=== PATIENT | female | born 1990 | race Caucasian/White ===

== ENCOUNTER 2022-06-29 09:41 | Emergency (ER) | payer OTHER, SELFPAY ==
[2022-06-29 10:43] LABS: Specific Gravity 1.028 (1.005-1.030)
[2022-06-29 10:48] LABS: Calcium Oxalate Crystals- Ur Few /HPF (None Seen); Specific Gravity 1.028 (1.005-1.030); Urine Bacteria Loaded /HPF (<20); Urine Bilirubin NEGATIVE (Negative); Urine Blood Negative (Negative); Urine Clarity Turbid (Clear); Urine Color Yellow (Yellow); Urine Glucose NEGATIVE (Negative); Urine Mucus 2+ /HPF (None Seen); Urine Protein TRACE (Negative); Urine RBC <5 /HPF (None Seen); Urine Urobilinogen Normal (Normal); Urine pH 6.5 (5.0-7.0)
[2022-06-29 11:45] LABS: Absolute Lymphocytes (CBC) 3.4 K/uL (0.7-4.9); Hematocrit 39.3 % (36.0-45.0); Lymphocytes % 22.1 % (15.3-44.8); MCV 88.5 fL (80-100); MPV 7.8 fL (7.6-11.3); RBC Red Blood Cell Count 4.44 M/uL (3.86-4.86)
--- NOTE | 2022-06-29 11:55 | RAD REPORT ---
EXAM DESCRIPTION: US - Transvaginal OB - 06/29/2022 11:43 am CLINICAL HISTORY: with pelvic pain COMPARISON: None. FINDINGS: The uterus measures 8 x 4 x 5 centimeters. 3 millimeter sac is present within the endomet rium. Yolk sac is not seen. No pole noted Neither ovary seen secondary to overlying bowel gas The right and left adnexa unremarkable No significant free fluid IMPRESSION: 3 millimeter sac within the endometrium These findings could represent an early intrauterine in which the yolk sac/ pole not seen. Incomplete and even an ectopic with a pseudo gestational sac can also result in th is appearance. This all should be correlated clinically and with serial beta HCG levels. Followup end ovaginal sonogram in 1 week recommended
[2022-06-29 12:13] LABS: Albumin 3.4 g/dL (3.4-5.0); Bilirubin Total 0.2 mg/dL (0.2-1.0); Protein, Total 6.6 g/dL (6.4-8.2)
--- NOTE | 2022-06-29 12:46 | EDPHYS ---
Physician Documentation [facility] Name: Sol Kemp Age: 32 yrs Sex: Female : 1990 Arrival Date: 06/29/2022 Time: 09:41 Bed 4 Private MD: ED Physician Brock Haas HPI: 06/29 12:10 This 32 yrs old Female presents to ER via Ambulatory with complaints of , kb Abdominal Pain. 12:10 The patient presents to the emergency department with abdominal pain, of the abdomen kb diffusely, that started today. course: care: none. Previous pregnancies: the patient has never been . Associated signs and symptoms: Pertinent positives: abdominal pain, Pertinent negatives: vaginal bleeding, vaginal discharge. The patient has not experienced similar symptoms in the past. The patient has not recently seen a physician. Pt reports she found out she was 4 days ago and has been having abd pain. States she isn't sure if it's normal so she came to get checked. . 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 Flu vaccine is not up to date. - Social history:: Smoking status: Patient reports the use of cigarette tobacco products, smokes one pack cigarettes per day. ROS: 12:09 Constitutional: Negative for fever, chills, and weight loss. kb 12:09 Abdomen/GI: Positive for abdominal pain, Negative for nausea, vomiting, and diarrhea. 12:09 All other systems are negative. Exam: 12:09 Constitutional: This is a well developed, well nourished patient who is awake, alert, kb and in no acute distress. Head/Face: Normocephalic, atraumatic. ENT: Moist Mucous membranes Cardiovascular: Regular rate and rhythm with a normal S1 and S2. No gallops, murmurs, or rubs. No pulse deficits. Respiratory: Respirations even and unlabored. No increased work of breathing. Talking in full sentences Skin: Warm, dry with normal turgor. Normal color. MS/ Extremity: Pulses equal, no cyanosis. Neurovascular intact. Full, normal range of motion. Neuro: Awake and alert, GCS 15, oriented to person, place, time, and situation. Moves all extremities. Normal gait. 12:09 Abdomen/GI: Inspection: abdomen appears normal, Bowel sounds: normal, Palpation: soft, in all quadrants, mild abdominal tenderness, in all quadrants. Vital Signs: 09:50 BP 124 / 72; Pulse 106; Resp 18 S; Temp 97.8; Pulse Ox 100% on R/A; Weight 70.31 kg kc6 (R); Height 5 ft. 0 in. (R); Pain 4/10; 12:03 BP 126 / 71; Pulse 87; Resp 18; Pulse Ox 98% on R/A; ph 09:50 Body Mass Index 30.27 (70.31 kg, 152.4 cm) [facility] 09:50 Pain Scale: Adult 6 MDM: 09:46 Patient medically screened. kb 12:09 Data reviewed: vital signs, nurses notes. kb 12:12 Differential diagnosis: threatened Ab, ectopic , GERD, pancreatitis. kb 06/29 09:52 Order name: Abo/rh Typing; Complete Time: 12:00 kb 06/29 09:52 Order name: CBC with Diff; Complete Time: 12:00 kb 06/29 09:52 Order name: Test, Urine; Complete Time: 10:55 kb 06/29 09:52 Order name: Quantitative Hcg; Complete Time: 12:19 kb 06/29 09:52 Order name: Urinalysis w/ reflexes; Complete Time: 10:55 kb 06/29 09:52 Order name: CMP; Complete Time: 12:19 kb 06/29 09:52 Order name: Lipase; Complete Time: 12:19 kb 06/29 11:58 Order name: ABO/RH no charge; Complete Time: 12:00 EDMS 06/29 10:55 Order name: US Transvaginal Ob; Complete Time: 12:00 kb 06/29 09:52 Order name: IV Saline Lock; Complete Time: 10:33 kb 06/29 09:52 Order name: Labs collected and sent; Complete Time: 10:33 kb 06/29 09:52 Order name: NPO; Complete Time: 10:09 kb Administered Medications: 13:08 Drug: Macrobid PO 100 mg Route: PO; ph 13:08 Follow up: Response: No adverse reaction ph Disposition: 14:19 Co-signature as Attending Physician, Brock Haas MD I reviewed the patient's care rt provided by the Advanced Practice Provider and agree with the diagnosis and treatment plan. Disposition Summary: 06/29/22 12:45 Discharge Ordered Location: Home kb Condition: Stable kb Diagnosis - UTI/ Urinary tract infection, site not specified kb - Abdominal pain, Generalized kb Followup: kb - With: Emergency Department - When: As needed - Reason: Worsening of condition Followup: kb - With: Private Physician - When: 2 - 3 days - Reason: Recheck today's complaints, Continuance of care, Re-evaluation by your physician Discharge Instructions: - Discharge Summary Sheet kb - Abdominal Pain During , Ovie-jz-Oroh kb - and Urinary Tract Infection kb Forms: - Medication Reconciliation Form kb - Thank You Letter kb - Antibiotic Education kb - Prescription Opioid Use kb Prescriptions: - Macrobid 100 mg Oral Capsule - take 1 capsule by ORAL route every 12 hours for 10 days; 20 capsule; Refills: kb 0, Product Selection Permitted Signatures: Dispatcher [employer] EDBatsheva Moore, JIGGER ARTISAN-C JIGGER ARTISAN-Dee Altamirano RN RN ph Josette Solo RN RN kc6 Brock Haas MD MD rt Corrections: (The following items were deleted from the chart) 09:53 09:52 Allergies: No Known Allergies; kc6 kc6
--- NOTE | 2022-06-29 12:46 | ER ---
Nurse's Notes [facility] Name: Sol Kemp Age: 32 yrs Sex: Female : 1990 Arrival Date: 06/29/2022 Time: 09:41 Bed 4 Private MD: Diagnosis: UTI/ Urinary tract infection, site not specified;Abdominal pain, Generalized Presentation: 06/29 09:50 Chief complaint: Patient states: she found she was with her first kc6 about 4 days ago and began having abdominal pain this morning. Coronavirus screen: At this time, the client does not indicate any symptoms associated with coronavirus-19. Ebola Screen: No symptoms or risks identified at this time. Initial Sepsis Screen: Does the patient meet any 2 criteria? No. Patient's initial sepsis screen is negative. Does the patient have a suspected source of infection? No. Patient's initial sepsis screen is negative. Risk Assessment: Do you want to hurt yourself or someone else? Patient reports no desire to harm self or others. Onset of symptoms was June 29, 2022. 09:50 Method Of Arrival: Ambulatory [facility] 09:50 Acuity: NICOLA 3 kc6 Triage Assessment: 09:52 General: Appears in no apparent distress. uncomfortable, Behavior is calm, cooperative, kc6 appropriate for age. Pain: Complains of pain in right upper quadrant, right lower quadrant and left lower quadrant. GI: Abdomen is flat, non-distended, Patient currently denies diarrhea, nausea, vomiting. 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 Flu vaccine is not up to date. - Social history:: Smoking status: Patient reports the use of cigarette tobacco products, smokes one pack cigarettes per day. Screenin:52 [facility] ED Fall Risk Assessment (Adult) History of falling in the last 3 months, bp including since admission No falls in past 3 months (0 pts). Abuse screen: Denies threats or abuse. Denies injuries from another. Nutritional screening: No deficits noted. Tuberculosis screening: No symptoms or risk factors identified. Assessment: 09:52 General: SEE TRIAGE NOTE. bp 11:01 Reassessment: Patient appears in no apparent distress at this time. Patient and/or ph family updated on plan of care and expected duration. Pain level reassessed. Patient is alert, oriented x 3, equal unlabored respirations, skin warm/dry/pink. Vital Signs: 09:50 BP 124 / 72; Pulse 106; Resp 18 S; Temp 97.8; Pulse Ox 100% on R/A; Weight 70.31 kg kc6 (R); Height 5 ft. 0 in. (R); Pain 4/10; 12:03 BP 126 / 71; Pulse 87; Resp 18; Pulse Ox 98% on R/A; ph 09:50 Body Mass Index 30.27 (70.31 kg, 152.4 cm) [facility] 09:50 Pain Scale: Adult [facility] ED Course: 09:44 Patient arrived in ED. mr 09:46 Batsheva Michelle FNP-C is [facility]. kb 09:46 Brock Haas MD is Attending Physician. kb 09:52 Triage completed. kc 09:52 Arm band placed on. [facility] 09:52 Patient has correct armband on for positive identification. Bed in low position. Call bp light in reach. Side rails up X2. 09:59 Dee Tinoco, RN is Primary Nurse. ph 10:33 Inserted saline lock: 22 gauge in right forearm, using aseptic technique. Blood bp collected. 11:44 US Transvaginal Ob In Process Unspecified. EDMS 12:04 No provider procedures requiring assistance completed. ph 13:08 IV discontinued, intact, bleeding controlled, No redness/swelling at site. Pressure ph dressing applied. Administered Medications: 13:08 Drug: Macrobid PO 100 mg Route: PO; ph 13:08 Follow up: Response: No adverse reaction ph Medication: 09:52 VIS not applicable for this client. bp Outcome: 12:45 Discharge ordered by . kb 13:08 Discharged to home ambulatory. ph 13:08 Condition: good 13:08 Discharge instructions given to family, Instructed on discharge instructions, follow up and referral plans. medication usage, Demonstrated understanding of instructions, follow-up care, medications, Prescriptions given X 1. 13:08 Patient left the ED. ph Signatures: Dispatcher [employer] EDMS Batsheva Michelle ASSEMBLER WIRE MESH GATE-C ASSEMBLER WIRE MESH GATE-Ckb Gale Merritt Dee Tinoco, RN RN Lionel Ragland RN RN Josette Hancock RN RN kc6 Corrections: (The following items were deleted from the chart) 09:53 09:52 Allergies: No Known Allergies; kc6 kc6 09:55 09:50 Chief complaint: Patient states: she found she was with her first kc6 about 4days and began having abdominal pain this morning. kc6
[2022-06-29] MEDS ORDERED: NITROFURAN MACRO 100 MG CAP PO ONE (12:59)
[2022-06-29 13:40] VITALS: TEMP 97.8
[2022-06-29 13:42] VITALS: BP 126/71; O2SAT 98
== END 2022-06-29 13:08 | disposition home or self-care (01) ==
LOC: ER 09:41
DX: O23.41 Unspecified infection of urinary tract in pregnancy, first trimester (principal); N39.0 Urinary tract infection, site not specified; O99.331 Smoking (tobacco) complicating pregnancy, first trimester; F17.210 Nicotine dependence, cigarettes, uncomplicated; Z3A.00 Weeks of gestation of pregnancy not specified
CPT/HCPCS: 36415; 76817; 80053; 81001; 81025; 83690; 84702; 85025; 86900; 86901; 99284

== ENCOUNTER 2022-09-08 18:22 | Emergency (ER) | payer OTHER ==
--- NOTE | 2022-09-08 22:08 | RAD REPORT ---
EXAM DESCRIPTION: US - OB Limited - 09/08/2022 9:21 pm CLINICAL HISTORY: status post fall COMPARISON: June 2022 FINDINGS: Limited OB ultrasound performed Single live intrauterine in transverse presentation. Cervix was not well visualized. It measures 3.8 centimeters. Placenta lies 1.8 centimeters from the cervix. The placenta is anterior. No subchorionic/retroplacental bleed noted. Cardiac activity 158 beats per minute. Femur length 1.5 centimeters 14 weeks 3 days Several small sonolucent areas within the placenta probably venous lakes. The right and left adnexae are unremarkable. IMPRESSION: Single live anterior with an estimated gestational age 14 weeks 3 days. JOSE LUIS 03/06/2023 Low lying placenta If a survey is desired it should be performed in approximately 4 weeks
--- NOTE | 2022-09-08 22:26 | EDPHYS ---
Physician Documentation [facility] Name: Sol Kemp Age: 32 yrs Sex: Female : 1990 Arrival Date: 09/08/2022 Time: 18:22 Bed 19 Private MD: ED Physician Brock Haas HPI: 09/09 00:57 This 32 yrs old Female presents to ER via Ambulatory with complaints of Abdominal Pain, rt 15 Weeks . 00:57 Patient is reportedly 15 weeks presents to the ED after falling, landing on rt her buttocks. She states that she does not have any significant pain to her buttocks but did develop pain to her lower abdomen, aching nature, nonradiating. Denies bleeding, leakage of fluid. Denies other acute complaints this time, symptoms are moderate severity, no other aggravating or elevating factors.. Historical: - Allergies: 09/08 18:55 No Known Allergies; hb - Home Meds: 18:55 None [Active]; hb - PMHx: 18:55 adhd; PCOS; hb - PSHx: 18:55 ankle surgery; hb - Immunization history:: Adult Immunizations up to date. - Social history:: Smoking status: Patient reports the use of cigarette tobacco products, smokes one-half pack cigarettes per day. - Family history:: not pertinent. ROS: 09/09 00:57 Constitutional: Negative for fever, chills, and weight loss, Cardiovascular: Negative rt for chest pain, palpitations, and edema, Respiratory: Negative for shortness of breath, cough, wheezing, and pleuritic chest pain, MS/Extremity: Negative for injury and deformity, Skin: Negative for injury, rash, and discoloration, Neuro: Negative for headache, weakness, numbness, tingling, and seizure, Psych: Negative for depression, anxiety, suicide ideation, homicidal ideation, and hallucinations. Abdomen/GI: Positive for abdominal pain, Negative for nausea and vomiting. Exam: 00:57 Constitutional: This is a well developed, well nourished patient who is awake, alert, rt and in no acute distress. Head/Face: Normocephalic, atraumatic. Chest/axilla: Normal chest wall appearance and motion. Nontender with no deformity. No lesions are appreciated. Cardiovascular: Regular rate and rhythm with a normal S1 and S2. No gallops, murmurs, or rubs. Normal PMI, no JVD. No pulse deficits. Respiratory: Lungs have equal breath sounds bilaterally, clear to auscultation and percussion. No rales, rhonchi or wheezes noted. No increased work of breathing, no retractions or nasal flaring. Skin: Warm, dry with normal turgor. Normal color with no rashes, no lesions, and no evidence of cellulitis. MS/ Extremity: Pulses equal, no cyanosis. Neurovascular intact. Full, normal range of motion. Neuro: Awake and alert, GCS 15, oriented to person, place, time, and situation. Cranial nerves II-XII grossly intact. Motor strength 5/5 in all extremities. Sensory grossly intact. Cerebellar exam normal. Normal gait. 00:57 Abdomen/GI: Minimal suprapubic tenderness, no rebound, guarding, distention. Vital Signs: 09/08 18:53 BP 132 / 80; Pulse 99; Resp 16; Temp 97.7(TE); Pulse Ox 100% on R/A; Weight 75.3 kg; hb Height 5 ft. 0 in. ; Pain 6/10; 18:53 Body Mass Index 32.42 (75.30 kg, 152.4 cm) hb 18:53 Pain Scale: Adult hb MDM: 19:02 Patient medically screened. [facility] 09/09 00:57 Differential diagnosis: Plan trauma, placental abruption, demise. Data reviewed: rt vital signs, nurses notes, radiologic studies. Test considered but Not performed: Labs: Stable vital signs, pain due to trauma, labs and urinalysis not indicated. ED course: Patient left the emergency department without informing staff prior to return of radiology results.. 09/08 20:39 Order name: US OB Limited; Complete Time: 22:09 rt Administered Medications: No medications were administered Disposition Summary: 09/08/22 22:26 Discharge Ordered Location: Home rt Problem: new rt Symptoms: are unchanged rt Condition: Stable rt Diagnosis - Abdominal pain s/p fall rt Followup: rt - With: Private Physician - When: 2 - 3 days - Reason: Forms: - Medication Reconciliation Form rt - Thank You Letter rt - Antibiotic Education rt - Prescription Opioid Use rt - Patient Portal Instructions rt Signatures: Dispatcher [employer] EDAR George Lam MD MD cha Baxter, Heather, PATRICIO RN Brock Rodriguez MD MD rt
--- NOTE | 2022-09-08 22:26 | ER ---
Nurse's Notes [facility] Name: Sol Kemp Age: 32 yrs Sex: Female : 1990 Arrival Date: 09/08/2022 Time: 18:22 Bed 19 Private MD: Diagnosis: Abdominal pain s/p fall Presentation: 09/08 18:53 Chief complaint: Lower abdominal pain after mechanical fall from standing onto grass 2 hb hours ago. Pt reports she is approx 15 weeks , , JOSE LUIS 03/01/23. Denies vaginal bleeding. Coronavirus screen: At this time, the client does not indicate any symptoms associated with coronavirus-19. Ebola Screen: No symptoms or risks identified at this time. Initial Sepsis Screen: Does the patient meet any 2 criteria? No. Patient's initial sepsis screen is negative. Does the patient have a suspected source of infection? No. Patient's initial sepsis screen is negative. Risk Assessment: Do you want to hurt yourself or someone else? Patient reports no desire to harm self or others. Onset of symptoms was September 08, 2022. 18:53 Method Of Arrival: Ambulatory hb 18:53 Acuity: NICOLA 3 hb Historical: - Allergies: 18:55 No Known Allergies; hb - Home Meds: 18:55 None [Active]; hb - PMHx: 18:55 adhd; PCOS; hb - PSHx: 18:55 ankle surgery; hb - Immunization history:: Adult Immunizations up to date. - Social history:: Smoking status: Patient reports the use of cigarette tobacco products, smokes one-half pack cigarettes per day. - Family history:: not pertinent. Screenin:58 [facility] ED Fall Risk Assessment (Adult) History of falling in the last 3 months, cm10 including since admission Yes- single mechanical fall (1 pt) Confusion or Disorientation No (0 pts) Intoxicated or Sedated Impaired Gait No (0 pts) Mobility Assist Device Used No (0 pt) Altered Elimination No (0 pt) Score/Fall Risk Level 0 - 2 = Low Risk Oriented to surroundings, Maintained a safe environment, Hourly rounding (assess needs \T\ fall precautionary measures) done. Abuse screen: Denies threats or abuse. Denies injuries from another. Nutritional screening: No deficits noted. Tuberculosis screening: No symptoms or risk factors identified. Assessment: 21:58 Reassessment: Assumed care of patient at this time. pt currently in US. cm10 22:36 Reassessment: Pt no longer in room at this time. Per provider, pt was not in room when cm10 he went to discuss results. Vital Signs: 18:53 BP 132 / 80; Pulse 99; Resp 16; Temp 97.7(TE); Pulse Ox 100% on R/A; Weight 75.3 kg; hb Height 5 ft. 0 in. ; Pain 6/10; 18:53 Body Mass Index 32.42 (75.30 kg, 152.4 cm) hb 18:53 Pain Scale: Adult hb ED Course: 18:24 Patient arrived in ED. rg4 18:39 George Anderson PA is PHCP. cp 18:39 George Lam MD is Attending Physician. cp 18:55 Triage completed. hb 18:55 Arm band placed on. hb 20:00 Brock Haas MD is Attending Physician. rt 21:23 US OB Limited In Process Unspecified. EDMS Administered Medications: No medications were administered Medication: 21:58 VIS not applicable for this client. cm10 Outcome: 22:26 Discharge ordered by . rt 22:37 Discharged to home Pt not in room at the time of D/C. cm10 22:37 Patient left the ED. cm10 Signatures: Dispatcher [employer] EDMS George Anderson PA PA cp Baxter, Heather, RN RN hb Ramona Peter rg4 Brock Haas MD MD rt Lisa Santiago RN RN cm10
[2022-09-08 22:45] VITALS: BP 132/80; TEMP 97.7; O2SAT 100
== END 2022-09-08 22:37 | disposition home or self-care (01) ==
LOC: ER 18:22
DX: O26.892 Other specified pregnancy related conditions, second trimester (principal); O99.330 Smoking (tobacco) complicating pregnancy, unspecified trimester; F17.210 Nicotine dependence, cigarettes, uncomplicated; Z3A.15 15 weeks gestation of pregnancy
CPT/HCPCS: 76815; 99281

== ENCOUNTER 2022-11-17 08:13 | Emergency (ER) | payer SELFPAY ==
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
--- NOTE | 2022-11-17 10:11 | ER ---
Nurse's Notes [facility] Name: Sol Kemp Age: 32 yrs Sex: Female : 1990 Arrival Date: 11/17/2022 Time: 08:13 Bed Waiting Private MD: Diagnosis: Necrotic wound of the left inner thigh.;Cellulitis of left lower limb Presentation: 11/17 08:20 Note Per ERP, pt assessed in the lobby and declined treatment reporting she will return [facility] to hospital where she was originally treated. 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 ED Course: 08:15 Patient arrived in ED. rg4 08:15 Anisa White FNP is [facility]. 7 08:15 Brock Haas MD is Attending Physician. [facility] 09:50 Anisa White FNP is [facility]. [facility] 09:50 Brock Haas MD is Attending Physician. [facility] Administered Medications: No medications were administered Outcome: 10:11 Patient [address] the ED[address] [facility] Signatures: Ramona Peter 4 Yeni Wallis RN RN [facility] Anisa White FNP [place] [id number]
== END 2022-11-17 10:11 | disposition left against medical advice (07) ==
LOC: ER 08:13
DX: O26.892 Other specified pregnancy related conditions, second trimester (principal); L03.116 Cellulitis of left lower limb

== ENCOUNTER → 2023-03-06 | Emergency (ER) | payer OTHER, SELFPAY ==
--- OUTSIDE RECORDS SUMMARY | 2023-03-06 19:15 | XMS REPORT | Continuity of Care Document ---
Author Name Unknown Address [address] [facility] [address]. [address] [place] [address] [facility] thconnect Address [address] [facility]. [address] [place] [address] Care Team Providers Care Television Receiver Analyzer Name Role Phone None, None Primary Care Physician [phone] MANSOOR MAURER Attending Clinician Un available Mansoor Maurer Attending Clinician BALA ROBERTSON Attending Clinician Unava ilable Bala Robertson Attending Clinician Pam Goode Attending Clinician [phone] PAM GOODE Attending Clinician Hitesh Milner MD Attending Clinician [phone] Magnolia Chow Attending Clinician [phone] MAGNOLIA CHOW Attending Clinician Unavail Davis Diaz Attending Clinician DAVIS DOUGHERTY Attending Clinician Unavailable MILENA CASTANON Attending Clinician UnavailDianne Mclean Attending Clinician DIANNE COTTER Attending Clinician Unajuan Baez Attending Clinician Unavailable JaimeEstefany Attending Clinician Unavailable [email or web address] Attending Clinician Unavail able WILFRIDO HO Attending Clinician Wilfrido Wright MD Attending Clinician [phone] Tyrone Vazquez DO Attending Clinician Doctor Unassigned, Offerle Attending Clinician U SULTANA Morataya Attending Clinician Unavailable MANSOOR MAURER Admitting Clinician Un available Mansoor Maurer Admitting Clinician BALA ROBERTSON Admitting Clinician Unava ilBala Lopez Admitting Clinician Magnolia Chow Admitting Clinician [phone] MAGNOLIA CHOW Admitting Clinician Unavail able MILENA CASTANON Admitting Clinician UnavailRyan Meza Admitting Clinician [phone] RYAN VAZQUEZ Admitting Clinician Unavailsofya Baez Admitting Clinician Unavailable Physician, No Primary or Family Admitting Clinic cherie Unavailable FELICIA_Holly Admitting Clinician Unavail able Payers Payer Name Policy Type Policy Number Effective Date Expirati on Date Source [facility] CHOICE/CHOICE PLUS [id number] 2022 00:00:00 2022 00:00:00 [facility] (HMO) [id number] [facility] (MEDICAID HMO) [id number] 2015 00:00:00 [facility] [id number] [facility] COMMUNITY PLAN (MEDICAID REPLACEMENT - HMO) [id number] 2022 00:00:00 [employer] [id number] 2020 00:00:00 [employer] [place] [employer] [place] [id number] 2019 00:00:00 Problems Condition Name Condition Details Condition Category Status Onset Date Resolution Date Last Treatment Date Treating Clinician Comments Source BLOOD PRESSURE BLOOD PRESSURE Active 02/19/2023 [facility] Diagnosis Active 1-08 00:00: 00 2023-02-19 22:57:00 Liseth Reyes HYPERTENSI ON IN , SEVERE PREECL HYPERTENSI ON IN , SEVERE PREECL Active 02/19/2023 [facility] Diagnosis Active 1-08 00:00: 00 2023-02-21 07:28:00 Liseth Reyes WOUND WOUND Active 12/11/2022 [facility] Diagnosis Active 2022-02 0-30 00:00: 00 2022-12-12 13:53:00 Liseth Reyes Patient currently (finding) Patient currently (finding) Active 11/18/2022 Problem 02/22/2023 [facility] Problem Active 2022-02 0-07 00:00: 00 2023-02-22 07:24:03 Liseth Reyes LEG WOUND LEG WOUND Active 11/18/2022 [facility] Diagnosis Active 2022-02 0-07 00:00: 00 2022-11-18 08:20:00 Liseth Reyes CELLULITIS OF LEG, , OBSTERICAL CELLULITIS OF LEG, , OBSTERICAL Active 11/18/2022 [facility] Diagnosis Active 2022-02 0-07 00:00: 00 2022-12-14 07:17:00 Liseth Reyes OPEN WOUND INFECTION OPEN WOUND INFECTION Active 11/17/2022 [facility] Diagnosis Active 2022-02 0-06 00:00: 00 2022-12-14 07:17:00 Liseth Reyes AUTO/PED AUTO/PED Active 10/06/2022 [facility] Diagnosis Active 8- 00:00: 00 2022-10-11 13:45:00 Liseth ZURITA BILLING Active 10/06/2022 [facility] Diagnosis Active 8- 00:00: 00 2022-10-11 13:57:00 Liseth Reyes Benign essential hypertensi on complicati ng , childbirth and the puerperium - not delivered Benign Essential Hypertensi on Complicati ng , Childbirth and the Puerperium - Not Delivered Problem Active 08-04 00:00: 00 [facility] Problem Active 08-04 00:00: 00 [facility] Maternal tobacco use Maternal Tobacco Use Problem Active 08-04 00:00: 00 [facility] Morbid obesity with body mass index of 40.0-49.9 Morbid obesity with body mass index of 40.0-49.9 Disease Active 08 00:00: 00 [facility] Pilonidal cyst Pilonidal cyst Disease Active 04-30 00:00: 00 Overview: Formattin g of this note might be different from the original. Added automatic ally from request for surgery [id number] [facility] Attention deficit disorder of adult Attention deficit disorder of adult Disease Active 04-01 00:00: 00 [facility] Tobacco use disorder Tobacco use disorder Disease Active 10-03 00:00: 00 [facility] PCOS (polycysti c ovarian syndrome) PCOS (polycysti c ovarian syndrome) Disease Active 10-03 00:00: 00 [facility] PCOS (polycysti c ovarian syndrome) PCOS (polycysti c ovarian syndrome) Disease Active 10-03 00:00: 00 [facility] Oligomenor monet Oligomenor monet Disease Active 08-29 00:00: 00 [facility] J20.8 - ACUTE BRONCHITIS DUE TO OTHER J20.8 - ACUTE BRONCHITIS DUE TO OTHER Active 07/27/2015 [facility] Diagnosis Active 07-26 00:01: 00 2015-07-27 16:01:00 Liseth Reyes 078.11 / CPT 43686 078.11 / CPT 57332 Active 12/08/2010 [facility] Active 2010-02 00:00: 00 2010-12-12 11:18:00 Liseth Reyes Attention deficit hyperactiv ity disorder (disorder) Attention deficit hyperactiv ity disorder (disorder) Active Problem 10/09/2022 [facility] Problem Active 2022-10-09 15:40:48 Liseth Reyes Benign essential hypertensi on (disorder) Benign essential hypertensi on (disorder) Active Problem 02/22/2023 [facility] Problem Active 2023-02-22 07:24:03 Liseth Reyes Major depressive disorder (disorder) Major depressive disorder (disorder) Active Problem 02/22/2023 [facility] Problem Active 2023-02-22 07:24:03 Liseth Reyes SEPSIS, UNSPECIFIE D ORGANISM SEPSIS, UNSPECIFIE D ORGANISM Active [facility] Diagnosis Active 2022-10-11 13:45:00 Liseth Reyes CELLULITIS OF UNSPECIFIE D PART OF LIMB CELLULITIS OF UNSPECIFIE D PART OF LIMB Active [facility] Diagnosis Active 2022-12-14 07:17:00 Liseth Reyes ENCNTR FOR SUPRVSN OF NORMAL , ENCNTR FOR SUPRVSN OF NORMAL , Active [facility] Diagnosis Active 2022-12-14 07:17:00 Liseth Reyes SEVERE PRE-ECLAMP PIETER, UNSPECIFIE D TRIMES SEVERE PRE-ECLAMP PIETER, UNSPECIFIE D TRIMES Active [facility] Diagnosis Active 2023-02-21 07:28:00 Liseth Reyes Allergies, Adverse Reactions, Alerts Allergy Name Allergy Type Status Severity Reaction(s) Onset Date Inactive Date Treating Clinician Comments Source Meperidi ne Propensi ty to adverse reaction s Active 2022-02 00:00: 00 [facility] No Known Allergie s DA Active U 08-14 00:00: 00 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) Liseth Reyes Social History Social Habit Start Date Stop Date Quantity Comments Source Sexual orientation [facility] History of tobacco use Cigarette Smoker [facility] History SDOH Alcohol Frequency [facility] History SDOH Alcohol Std Drinks [facility] History SDOH Alcohol Binge [facility] Tobacco use and exposure 2022-12-07 00:00:00 2022-12-07 00:00:00 Smokeless tobacco non-user [facility] Alcohol intake 2022-12-07 00:00:00 2022-12-07 00:00:00 Ex-drinker (finding) [facility] Cigarettes smoked current (pack per day) - Reported 2018-07-30 00:00:00 2018-07-30 00:00:00 [facility] Cigarette pack-years 2018-07-30 00:00:00 2018-07-30 00:00:00 [facility] Alcohol Comment 2015-08-30 00:00:00 2015-08-30 00:00:00 1-2 week [facility] Sex Assigned At 1990 00:00:00 1990 00:00:00 [facility] Smoking Status Start Date Stop Date Source Heavy Tobacco Smoker [facility] Social History 2015-07-26 20:44:48 Cinda Yu Medications Ordered Medication Name Filled Medication Name Start Date Stop Date Current Medication? Ordering Clinician Indication Dosage Frequency Signature (SIG) Comments Components Source Augmentin 875 mg oral tablet 2022-02 21:27: 00 Yes 875 mg = 1 tab, PO, Q12H, X 14 day, # 28 tab, 0 Refill(s), Pharmacy: [facility] [place], 162.56, cm, 11/23/22 13:35:00 CDT, Height, 81.9, kg, 11/23/22 13:35:00 CDT, Weight Memlillian taylor Eric Augmentin 875 mg oral tablet 2022-02 21:27: 00 Yes 875 mg = 1 tab, PO, Q12H, X 14 day, # 28 tab, 0 Refill(s), Pharmacy: [facility] [place], 162.56, cm, 11/23/22 13:35:00 CDT, Height, 81.9, kg, 11/23/22 13:35:00 CDT, Weight Memoria claudia Eric Augmentin 875 mg oral tablet 2022-02 21:27: 00 Yes 875 mg = 1 tab, PO, Q12H, X 14 day, # 28 tab, 0 Refill(s), Pharmacy: [facility] [place], 162.56, cm, 11/23/22 13:35:00 CDT, Height, 81.9, kg, 11/23/22 13:35:00 CDT, Weight Memoria claudia Reyes Augmentin 875 mg oral tablet 2022-02 21:27: 00 Yes 875 mg = 1 tab, PO, Q12H, X 14 day, # 28 tab, 0 Refill(s), Pharmacy: [facility], 162.56, cm, 11/23/22 13:35:00 CDT, Height, 81.9, kg, 11/23/22 13:35:00 CDT, Weight Memoria claudia FinnEric [place] 5/325 oral tablet 2022-02 21:01: 00 Yes 1 tab, PO, Q6H, PRN Pain Score 1-3, X 7 day, # 30 tab, 0 Refill(s), Pharmacy: [facility], 162.56, cm, 11/23/22 13:35:00 CDT, Height, 81.9, kg, 11/23/22 13:35:00 CDT, Weight Memoria claudia FinnEric Zofran 4 mg oral tablet 2022-02 21:01: 00 Yes 4 mg = 1 tab, PO, Q6H, PRN Nausea/Vom iting, X 8 day, # 30 tab, 0 Refill(s), Pharmacy: [facility], 162.56, cm, 11/23/22 13:35:00 CDT, Height, 81.9, kg, 11/23/22 13:35:00 CDT, Weight Memoria claudia Eric [place] 5/325 oral tablet 2022-02 21:01: 00 Yes 1 tab, PO, Q6H, PRN Pain Score 1-3, X 7 day, # 30 tab, 0 Refill(s), Pharmacy: [facility], 162.56, cm, 11/23/22 13:35:00 CDT, Height, 81.9, kg, 11/23/22 13:35:00 CDT, Weight Memoria l [place] Zofran 4 mg oral tablet 2022-02 21:01: 00 Yes 4 mg = 1 tab, PO, Q6H, PRN Nausea/Vom iting, X 8 day, # 30 tab, 0 Refill(s), Pharmacy: [facility], 162.56, cm, 11/23/22 13:35:00 CDT, Height, 81.9, kg, 11/23/22 13:35:00 CDT, Weight Memoria claudia Reyes [place] 5/325 oral tablet 2022-02 21:01: 00 Yes 1 tab, PO, Q6H, PRN Pain Score 1-3, X 7 day, # 30 tab, 0 Refill(s), Pharmacy: [facility], 162.56, cm, 11/23/22 13:35:00 CDT, Height, 81.9, kg, 11/23/22 13:35:00 CDT, Weight Memoria l Eric Zofran 4 mg oral tablet 2022-02 21:01: 00 Yes 4 mg = 1 tab, PO, Q6H, PRN Nausea/Vom iting, X 8 day, # 30 tab, 0 Refill(s), Pharmacy: [facility], 162.56, cm, 11/23/22 13:35:00 CDT, Height, 81.9, kg, 11/23/22 13:35:00 CDT, Weight Memoria claudia Reyes [place] 5/325 oral tablet 2022-02 21:01: 00 Yes 1 tab, PO, Q6H, PRN Pain Score 1-3, X 7 day, # 30 tab, 0 Refill(s), Pharmacy: [facility], 162.56, cm, 11/23/22 13:35:00 CDT, Height, 81.9, kg, 11/23/22 13:35:00 CDT, Weight Memoria l Eric Zofran 4 mg oral tablet 2022-02 21:01: 00 Yes 4 mg = 1 tab, PO, Q6H, PRN Nausea/Vom iting, X 8 day, # 30 tab, 0 Refill(s), Pharmacy: [facility], 162.56, cm, 11/23/22 13:35:00 CDT, Height, 81.9, kg, 11/23/22 13:35:00 CDT, Weight Memoria l Eric Multivitami ns with Folic Acid 1 mg oral tablet 2023-1 0-16 21:00: 00 Yes 1 mg = 1 tab, PO, Daily, # 30 tab, 11 Refill(s), Pharmacy: [facility], 162.56, cm, 11/23/22 13:35:00 CDT, Height, 81.9, kg, 11/23/22 13:35:00 CDT, Weight Memoria l [place] metroNIDAZO LE 500 mg oral tablet 2022-02 21:00: 00 Yes 500 mg = 1 tab, PO, ABXQ8H, X 7 day, # 21 tab, 0 Refill(s), Pharmacy: [facility], 162.56, cm, 11/23/22 13:35:00 CDT, Height, 81.9, kg, 11/23/22 13:35:00 CDT, Weight Memoria l Eric docusate sodium 100 mg oral capsule 2022-02 21:00: 00 Yes 100 mg = 1 cap, PO, BID, # 60 cap, 0 Refill(s), Pharmacy: [facility], 162.56, cm, 11/23/22 13:35:00 CDT, Height, 81.9, kg, 11/23/22 13:35:00 CDT, Weight Memoria l Eric Multivitami ns with Folic Acid 1 mg oral tablet 2022-02 21:00: 00 Yes 1 mg = 1 tab, PO, Daily, # 30 tab, 11 Refill(s), Pharmacy: [facility], 162.56, cm, 11/23/22 13:35:00 CDT, Height, 81.9, kg, 11/23/22 13:35:00 CDT, Weight Memoria l [place] metroNIDAZO LE 500 mg oral tablet 2022-02 21:00: 00 Yes 500 mg = 1 tab, PO, ABXQ8H, X 7 day, # 21 tab, 0 Refill(s), Pharmacy: [facility], 162.56, cm, 11/23/22 13:35:00 CDT, Height, 81.9, kg, 11/23/22 13:35:00 CDT, Weight Memoria l [place] docusate sodium 100 mg oral capsule 2023-1 0-16 21:00: 00 Yes 100 mg = 1 cap, PO, BID, # 60 cap, 0 Refill(s), Pharmacy: [facility], 162.56, cm, 11/23/22 13:35:00 CDT, Height, 81.9, kg, 11/23/22 13:35:00 CDT, Weight Memoria l Eric Multivitami ns with Folic Acid 1 mg oral tablet 2022-02 21:00: 00 Yes 1 mg = 1 tab, PO, Daily, # 30 tab, 11 Refill(s), Pharmacy: [facility], 162.56, cm, 11/23/22 13:35:00 CDT, Height, 81.9, kg, 11/23/22 13:35:00 CDT, Weight Memoria l Eric metroNIDAZO LE 500 mg oral tablet 2022-02 21:00: 00 Yes 500 mg = 1 tab, PO, ABXQ8H, X 7 day, # 21 tab, 0 Refill(s), Pharmacy: [facility], 162.56, cm, 11/23/22 13:35:00 CDT, Height, 81.9, kg, 11/23/22 13:35:00 CDT, Weight Memoria l Eric docusate sodium 100 mg oral capsule 2022-02 21:00: 00 Yes 100 mg = 1 cap, PO, BID, # 60 cap, 0 Refill(s), Pharmacy: [facility], 162.56, cm, 11/23/22 13:35:00 CDT, Height, 81.9, kg, 11/23/22 13:35:00 CDT, Weight Memoria l Eric Multivitami ns with Folic Acid 1 mg oral tablet 2022-02 21:00: 00 Yes 1 mg = 1 tab, PO, Daily, # 30 tab, 11 Refill(s), Pharmacy: [facility], 162.56, cm, 11/23/22 13:35:00 CDT, Height, 81.9, kg, 11/23/22 13:35:00 CDT, Weight Memoria l Eric metroNIDAZO LE 500 mg oral tablet 2022-02 21:00: 00 Yes 500 mg = 1 tab, PO, ABXQ8H, X 7 day, # 21 tab, 0 Refill(s), Pharmacy: [facility] [place], 162.56, cm, 11/23/22 13:35:00 CDT, Height, 81.9, kg, 11/23/22 13:35:00 CDT, Weight Liseth Reyes docusate sodium 100 mg oral capsule 2022-02 21:00: 00 Yes 100 mg = 1 cap, PO, BID, # 60 cap, 0 Refill(s), Pharmacy: [facility] [place], 162.56, cm, 11/23/22 13:35:00 CDT, Height, 81.9, kg, 11/23/22 13:35:00 CDT, Weight Liseth Reyes amoxicillin -clavulanat e (Augmentin) 875-125 MG tablet 2022-02 00:00: 00 Yes TAKE ONE (1) TABLET(S) BY MOUTH EVERY TWELVE HOURS FOR 14 DAYS. [facility] metroNIDAZO LE (Flagyl) 500 MG tablet 2022-02 00:00: 00 Yes TAKE ONE (1) TABLET(S) BY MOUTH EVERY EIGHT HOURS FOR SEVEN DAYS. [facility] Omnipaque 350 mg/mL 10-06 23:35: 00 No 100 mL, Route: IVP, Drug Form: SOLN, Dosing Weight 79.545, kg, ONCALL, STAT, Start date: 10/06/22 18:35:00 CDT, Duration: 1 doses or times, Dose = 2.2ml/kg, Max dose = 100ml -- "To be infused by Radiology Staff ONLY" Liseth Ryees Omnipaque 350 mg/mL 10-06 23:35: 00 No 100 mL, Route: IVP, Drug Form: SOLN, Dosing Weight 79.545, kg, ONCALL, STAT, Start date: 10/06/22 18:35:00 CDT, Duration: 1 doses or times, Dose = 2.2ml/kg, Max dose = 100ml -- "To be infused by Radiology Staff ONLY" Liseth Reyes Omnipaque 350 mg/mL 10-06 23:35: 00 No 100 mL, Route: IVP, Drug Form: SOLN, Dosing Weight 79.545, kg, ONCALL, STAT, Start date: 10/06/22 18:35:00 CDT, Duration: 1 doses or times, Dose = 2.2ml/kg, Max dose = 100ml -- "To be infused by Radiology Staff ONLY" Liseth Reyes Omnipaque 350 mg/mL 8- 23:35: 00 No 100 mL, Route: IVP, Drug Form: SOLN, Dosing Weight 79.545, kg, ONCALL, STAT, Start date: 10/06/22 18:35:00 CDT, Duration: 1 doses or times, Dose = 2.2ml/kg, Max dose = 100ml -- "To be infused by Radiology Staff ONLY" Maggilillian claudia Reyes Saline Flush 0.9% 0 8- 22:59: 00 No Notes: preservati ve free. Liseth Finnann Saline Flush 0.9% 0 8 22:59: 00 No Notes: preservati ve free. Liseth claudia [place] Saline Flush 0.9% 0 8 22:59: 00 No Notes: preservati ve free. Liseth claudia [place] Saline Flush 0.9% 0 8- 22:59: 00 No Notes: preservati ve free. Liseth Reyes buPROPion SR (Wellbutrin SR) 150 MG 12 hr tablet 2-04 00:00: 00 Yes 150mg Q.5D Take 150 mg by mouth in the morning and 150 mg in the evening. [facility] lisdexamfet amine (VYVANSE) 40 mg capsule 10-25 00:00: 00 Yes [id number] 40mg Take 1 capsule by mouth every morning. [facility] lisdexamfet amine (VYVANSE) 40 mg capsule -16 00:00: 00 Yes [id number] 40mg Take 1 capsule by mouth every morning. [facility] lisdexamfet amine (VYVANSE) 40 mg capsule 16 00:00: 00 10-25 00:00 :00 No [id number] 40mg Take 1 capsule by mouth every morning. [facility] lisdexamfet amine (VYVANSE) 40 mg capsule 08-25 00:00: 00 Yes [id number] 40mg Take 1 capsule by mouth every morning. [facility] lisdexamfet amine (VYVANSE) 40 mg capsule 08-25 00:00: 00 09-27 00:00 :00 No [id number] 40mg Take 1 capsule by mouth every morning. [facility] lisdexamfet amine (VYVANSE) 40 mg capsule 07-26 00:00: 00 Yes [id number] 40mg Take 1 capsule by mouth every morning. [facility] lisdexamfet amine (VYVANSE) 40 mg capsule 07-26 00:00: 00 08-25 00:00 :00 No [id number] 40mg Take 1 capsule by mouth every morning. [facility] norgestimat e-ethinyl estradioL 0.25-35 mg-mcg per tablet 07-20 18:29: 21 07-20 00:00 :00 No 1{tbl} Take 1 tablet by mouth daily. [facility] norgestimat e-ethinyl estradioL 0.25-35 mg-mcg per tablet 07-20 18:29: 21 07-20 00:00 :00 No 1{tbl} Take 1 tablet by mouth daily. [facility] norgestimat e-ethinyl estradioL 0.25-35 mg-mcg per tablet 07-20 00:00: 00 Yes [id number] 1{tbl} Take 1 tablet by mouth daily. [facility] norgestimat e-ethinyl estradioL 0.25-35 mg-mcg per tablet 07-20 00:00: 00 Yes [id number] 1{tbl} Take 1 tablet by mouth daily. [facility] norgestimat e-ethinyl estradioL 0.25-35 mg-mcg per tablet 07-20 00:00: 00 Yes [id number] 1{tbl} Take 1 tablet by mouth daily. [facility] norgestimat e-ethinyl estradioL 0.25-35 mg-mcg per tablet 08 00:00: 00 Yes [id number] 1{tbl} Take 1 tablet by mouth daily. [facility] norgestimat e-ethinyl estradioL 0.25-35 mg-mcg per tablet 07-20 00:00: 00 Yes [id number] 1{tbl} Take 1 tablet by mouth daily. [facility] norgestimat e-ethinyl estradioL 0.25-35 mg-mcg per tablet 07-20 00:00: 00 Yes [id number] 1{tbl} Take 1 tablet by mouth daily. [facility] lisdexamfet amine (VYVANSE) 40 mg capsule -14 00:00: 00 Yes [id number] 40mg Take 1 capsule by mouth every morning. [facility] lisdexamfet amine (VYVANSE) 40 mg capsule 0 5-14 00:00: 00 Yes [id number] 40mg Take 1 capsule by mouth every morning. [facility] lisdexamfet amine (VYVANSE) 40 mg capsule 0 5-14 00:00: 00 Yes [id number] 40mg Take 1 capsule by mouth every morning. [facility] lisdexamfet amine (VYVANSE) 40 mg capsule 0 5-14 00:00: 00 14 00:00 :00 No [id number] 40mg Take 1 capsule by mouth every morning. [facility] lisdexamfet amine (VYVANSE) 40 mg capsule 0 -14 00:00: 00 Yes [id number] 40mg Take 1 capsule by mouth every morning. [facility] lisdexamfet amine (VYVANSE) 40 mg capsule 0 4-14 00:00: 00 14 00:00 :00 No [id number] 40mg Take 1 capsule by mouth every morning. [facility] lisdexamfet amine (VYVANSE) 40 mg capsule 3-12 00:00: 00 Yes [id number] 40mg Take 1 capsule by mouth every morning. [facility] lisdexamfet amine (VYVANSE) 40 mg capsule 3-12 00:00: 00 Yes [id number] 40mg Take 1 capsule by mouth every morning. [facility] lisdexamfet amine (VYVANSE) 40 mg capsule 3-12 00:00: 00 14 00:00 :00 No [id number] 40mg Take 1 capsule by mouth every morning. [facility] lisdexamfet amine (VYVANSE) 40 mg capsule 2-09 00:00: 00 04-23 00:00 :00 No [id number] 40mg Take 1 capsule by mouth every morning. [facility] lisdexamfet amine (VYVANSE) 40 mg capsule 1-11 00:00: 00 Yes [id number] 40mg Take 1 capsule by mouth every morning. [facility] dextroamphe tamine-amph etamine (ADDERALL) 10 mg tablet 2019-02 00:00: 00 Yes [id number] 10mg Take 1 tablet by mouth 2 (two) times daily. [facility] dextroamphe tamine-amph etamine (ADDERALL) 10 mg tablet 2019-02 00:00: 00 Yes [id number] 10mg Take 1 tablet by mouth 2 (two) times daily. [facility] dextroamphe tamine-amph etamine (ADDERALL) 10 mg tablet 2019-02 00:00: 00 Yes [id number] 10mg Take 1 tablet by mouth 2 (two) times daily. [facility] dextroamphe tamine-amph etamine (ADDERALL) 10 mg tablet 2019-02 00:00: 00 Yes [id number] 10mg Take 1 tablet by mouth 2 (two) times daily. [facility] dextroamphe tamine-amph etamine (ADDERALL) 10 mg tablet 2019-02 1 00:00: 01-21 00:00 :00 No [id number] 10mg Take 1 tablet by mouth 2 (two) times daily. [facility] lisdexamfet amine (VYVANSE) 40 mg capsule 2019-02 0 00:00: 00 Yes [id number] 40mg Take 1 capsule by mouth every morning. [facility] lisdexamfet amine (VYVANSE) 40 mg capsule 2019-02 0 00:00: 00 Yes [id number] 40mg Take 1 capsule by mouth every morning. [facility] lisdexamfet amine (VYVANSE) 40 mg capsule 2019-02 00:00: 00 Yes [id number] 40mg Take 1 capsule by mouth every morning. [facility] lisdexamfet amine (VYVANSE) 40 mg capsule 2019-02 0 00:00: 00 Yes [id number] 40mg Take 1 capsule by mouth every morning. [facility] lisdexamfet amine (VYVANSE) 40 mg capsule 2019-02 0 00:00: 00 Yes [id number] 40mg Take 1 capsule by mouth every morning. [facility] lisdexamfet amine (VYVANSE) 40 mg capsule 2019-02 0 00:00: 00 Yes [id number] 40mg Take 1 capsule by mouth every morning. [facility] lisdexamfet amine (VYVANSE) 40 mg capsule 2019-02 0 00:00: 00 02-22 00:00 :00 No [id number] 40mg Take 1 capsule by mouth every morning. [facility] lisdexamfet amine (VYVANSE) 40 mg capsule 10-13 00:00: 00 Yes [id number] 40mg Take 1 capsule by mouth every morning. [facility] lisdexamfet amine (VYVANSE) 40 mg capsule 10-13 00:00: 00 Yes [id number] 40mg Take 1 capsule by mouth every morning. [facility] lisdexamfet amine (VYVANSE) 40 mg capsule 0 9- 00:00: 00 Yes [id number] 40mg Take 1 capsule by mouth every morning. [facility] lisdexamfet amine (VYVANSE) 40 mg capsule 0 9- 00:00: 00 Yes [id number] 40mg Take 1 capsule by mouth every morning. [facility] lisdexamfet amine (VYVANSE) 40 mg capsule 0 9- 00:00: 11-18 00:00 :00 No [id number] 40mg Take 1 capsule by mouth every morning. [facility] lisdexamfet amine (VYVANSE) 40 mg capsule 0 - 00:00: 00 Yes [id number] 40mg Take 1 capsule by mouth every morning. [facility] lisdexamfet amine (VYVANSE) 40 mg capsule 0 7- 00:00: 00 10-13 00:00 :00 No [id number] 40mg Take 1 capsule by mouth every morning. [facility] lisdexamfet amine (VYVANSE) 40 mg capsule 0 6- 00:00: 00 Yes [id number] 40mg Take 1 capsule by mouth every morning. [facility] lisdexamfet amine (VYVANSE) 40 mg capsule 0 6-10 00:00: 00 08-24 00:00 :00 No [id number] 40mg Take 1 capsule by mouth every morning. [facility] lisdexamfet amine (VYVANSE) 40 mg capsule 0 5-12 00:00: 00 Yes [id number] 40mg Take 1 capsule by mouth every morning. [facility] lisdexamfet amine (VYVANSE) 40 mg capsule 0 5-12 00:00: 00 07-22 00:00 :00 No [id number] 40mg Take 1 capsule by mouth every morning. [facility] norgestimat e-ethinyl estradiol 0.25-35 mg-mcg per tablet 2020-0 4-13 00:00: 00 Yes [id number] 1{tbl} Take 1 tablet by mouth daily. [facility] norgestimat e-ethinyl estradiol 0.25-35 mg-mcg per tablet 2019-0 4-13 00:00: 00 Yes [id number] 1{tbl} Take 1 tablet by mouth daily. [facility] norgestimat e-ethinyl estradiol 0.25-35 mg-mcg per tablet 2019-0 4-13 00:00: 00 Yes [id number] 1{tbl} Take 1 tablet by mouth daily. [facility] norgestimat e-ethinyl estradiol 0.25-35 mg-mcg per tablet 2019-0 -13 00:00: 00 Yes [id number] 1{tbl} Take 1 tablet by mouth daily. [facility] norgestimat e-ethinyl estradiol 0.25-35 mg-mcg per tablet 2019-0 -13 00:00: 00 Yes [id number] 1{tbl} Take 1 tablet by mouth daily. [facility] norgestimat e-ethinyl estradiol 0.25-35 mg-mcg per tablet 2019-0 -13 00:00: 00 Yes [id number] 1{tbl} Take 1 tablet by mouth daily. [facility] norgestimat e-ethinyl estradiol 0.25-35 mg-mcg per tablet 2019-0 -13 00:00: 00 Yes [id number] 1{tbl} Take 1 tablet by mouth daily. [facility] norgestimat e-ethinyl estradiol 0.25-35 mg-mcg per tablet 2019-0 4-13 00:00: 00 Yes [id number] 1{tbl} Take 1 tablet by mouth daily. [facility] norgestimat e-ethinyl estradiol 0.25-35 mg-mcg per tablet 2019-0 4-13 00:00: 00 Yes [id number] 1{tbl} Take 1 tablet by mouth daily. [facility] norgestimat e-ethinyl estradiol 0.25-35 mg-mcg per tablet 2019-0 4-13 00:00: 00 Yes [id number] 1{tbl} Take 1 tablet by mouth daily. [facility] norgestimat e-ethinyl estradiol 0.25-35 mg-mcg per tablet 0 -13 00:00: 00 Yes [id number] 1{tbl} Take 1 tablet by mouth daily. [facility] norgestimat e-ethinyl estradiol 0.25-35 mg-mcg per tablet 0 - 00:00: 00 Yes [id number] 1{tbl} Take 1 tablet by mouth daily. [facility] norgestimat e-ethinyl estradiol 0.25-35 mg-mcg per tablet 0 05-25 00:00: 00 Yes [id number] 1{tbl} Take 1 tablet by mouth daily. [facility] lisdexamfet amine (VYVANSE) 40 mg capsule 0 05-25 00:00: 00 Yes [id number] 40mg Take 1 capsule by mouth every morning. [facility] norgestimat e-ethinyl estradiol 0.25-35 mg-mcg per tablet 0 05-25 00:00: 00 Yes [id number] 1{tbl} Take 1 tablet by mouth daily. [facility] norgestimat e-ethinyl estradiol 0.25-35 mg-mcg per tablet 0 05-25 00:00: 00 Yes [id number] 1{tbl} Take 1 tablet by mouth daily. [facility] norgestimat e-ethinyl estradiol 0.25-35 mg-mcg per tablet 0 05-25 00:00: 00 Yes [id number] 1{tbl} Take 1 tablet by mouth daily. [facility] lisdexamfet amine (VYVANSE) 40 mg capsule 0 4-13 00:00: 00 0512 00:00 :00 No [id number] 40mg Take 1 capsule by mouth every morning. [facility] lisdexamfet amine (VYVANSE) 40 mg capsule 0 3-13 00:00: 00 Yes [id number] 40mg Take 1 capsule by mouth every morning. [facility] lisdexamfet amine (VYVANSE) 40 mg capsule 2019-0 3-13 00:00: 00 05-25 00:00 :00 No [id number] 40mg Take 1 capsule by mouth every morning. [facility] lisdexamfet amine (VYVANSE) 40 mg capsule 2019-0 2-12 00:00: 00 Yes [id number] 40mg Take 1 capsule by mouth every morning. [facility] lisdexamfet amine (VYVANSE) 40 mg capsule 2019-0 2-12 00:00: 00 04-24 00:00 :00 No [id number] 40mg Take 1 capsule by mouth every morning. [facility] lisdexamfet amine (VYVANSE) 40 mg capsule 2019-0 1-13 00:00: 00 Yes [id number] 40mg Take 1 capsule by mouth every morning. [facility] lisdexamfet amine (VYVANSE) 40 mg capsule 0 1-13 00:00: 00 Yes [id number] 40mg Take 1 capsule by mouth every morning. [facility] lisdexamfet amine (VYVANSE) 40 mg capsule 2019-0 1-13 00:00: 00 05-25 00:00 :00 No [id number] 40mg Take 1 capsule by mouth every morning. [facility] lisdexamfet amine (VYVANSE) 40 mg capsule 2018-02 2-12 00:00: 00 03-26 00:00 :00 No [id number] 40mg Take 1 capsule by mouth every morning. [facility] lisdexamfet amine (VYVANSE) 40 mg capsule 0 9-13 00:00: 00 Yes [id number] 40mg Take 1 capsule by mouth every morning. [facility] lisdexamfet amine (VYVANSE) 40 mg capsule 0 8-16 00:00: 00 Yes [id number] 40mg Take 1 capsule by mouth every morning. [facility] lisdexamfet amine (VYVANSE) 40 mg capsule 2019-0 8-16 00:00: 00 10-25 00:00 :00 No [id number] 40mg Take 1 capsule by mouth every morning. [facility] lisdexamfet amine (VYVANSE) 40 mg capsule 17 00:00: 00 09-27 00:00 :00 No [id number] 40mg Take 1 capsule by mouth every morning. [facility] MULTIVITS,C A,MINERALS/ IRON/FA (ONE-A-DAY WOMENS FORMULA ORAL) 07-30 18:23: 57 Yes Take by mouth. [facility] MULTIVITS,C A,MINERALS/ IRON/FA (ONE-A-DAY WOMENS FORMULA ORAL) 07-30 18:23: 57 Yes Take by mouth. [facility] MULTIVITS,C A,MINERALS/ IRON/FA (ONE-A-DAY WOMENS FORMULA ORAL) 07-30 18:23: 57 Yes Take by mouth. [facility] MULTIVITS,C A,MINERALS/ IRON/FA (ONE-A-DAY WOMENS FORMULA ORAL) 07-30 18:23: 57 Yes Take by mouth. [facility] MULTIVITS,C A,MINERALS/ IRON/FA (ONE-A-DAY WOMENS FORMULA ORAL) 07-30 18:23: 57 Yes Take by mouth. [facility] MULTIVITS,C A,MINERALS/ IRON/FA (ONE-A-DAY WOMENS FORMULA ORAL) 07-30 18:23: 57 Yes Take by mouth. [facility] MULTIVITS,C A,MINERALS/ IRON/FA (ONE-A-DAY WOMENS FORMULA ORAL) 07-30 18:23: 57 Yes Take by mouth. [facility] MULTIVITS,C A,MINERALS/ IRON/FA (ONE-A-DAY WOMENS FORMULA ORAL) 07-30 18:23: 57 Yes Take by mouth. [facility] MULTIVITS,C A,MINERALS/ IRON/FA (ONE-A-DAY WOMENS FORMULA ORAL) 07-30 18:23: 57 Yes Take by mouth. [facility] MULTIVITS,C A,MINERALS/ IRON/FA (ONE-A-DAY WOMENS FORMULA ORAL) 2019-0 18 18:23: 57 Yes Take by mouth. [facility] MULTIVITS,C A,MINERALS/ IRON/FA (ONE-A-DAY WOMENS FORMULA ORAL) 2019-0 18 18:23: 57 Yes Take by mouth. [facility] MULTIVITS,C A,MINERALS/ IRON/FA (ONE-A-DAY WOMENS FORMULA ORAL) [id number] 18 18:23: 57 Yes Take by mouth. [facility] MULTIVITS,C A,MINERALS/ IRON/FA (ONE-A-DAY WOMENS FORMULA ORAL) [id number] 07-30 18:23: 57 Yes Take by mouth. [facility] MULTIVITS,C A,MINERALS/ IRON/FA (ONE-A-DAY WOMENS FORMULA ORAL) [id number] 07-30 18:23: 57 Yes Take by mouth. [facility] MULTIVITS,C A,MINERALS/ IRON/FA (ONE-A-DAY WOMENS FORMULA ORAL) [id number] 07-30 18:23: 57 Yes Take by mouth. [facility] MULTIVITS,C A,MINERALS/ IRON/FA (ONE-A-DAY WOMENS FORMULA ORAL) [id number] 18 18:23: 57 Yes Take by mouth. [facility] MULTIVITS,C A,MINERALS/ IRON/FA (ONE-A-DAY WOMENS FORMULA ORAL) [id number] 18 18:23: 57 Yes Take by mouth. [facility] MULTIVITS,C A,MINERALS/ IRON/FA (ONE-A-DAY WOMENS FORMULA ORAL) [id number] 18 18:23: 57 Yes Take by mouth. [facility] MULTIVITS,C A,MINERALS/ IRON/FA (ONE-A-DAY WOMENS FORMULA ORAL) [id number] 18 18:23: 57 Yes Take by mouth. [facility] MULTIVITS,C A,MINERALS/ IRON/FA (ONE-A-DAY WOMENS FORMULA ORAL) [id number] 18 18:23: 57 Yes Take by mouth. [facility] MULTIVITS,C A,MINERALS/ IRON/FA (ONE-A-DAY WOMENS FORMULA ORAL) 0 07-30 18:23: 57 Yes Take by mouth. [facility] MULTIVITS,C A,MINERALS/ IRON/FA (ONE-A-DAY WOMENS FORMULA ORAL) 0 07-30 18:23: 57 Yes Take by mouth. [facility] MULTIVITS,C A,MINERALS/ IRON/FA (ONE-A-DAY WOMENS FORMULA ORAL) 0 07-30 18:23: 57 Yes Take by mouth. [facility] MULTIVITS,C A,MINERALS/ IRON/FA (ONE-A-DAY WOMENS FORMULA ORAL) 0 07-30 18:23: 57 Yes Take by mouth. [facility] MULTIVITS,C A,MINERALS/ IRON/FA (ONE-A-DAY WOMENS FORMULA ORAL) 0 07-30 18:23: 57 Yes Take by mouth. [facility] MULTIVITS,C A,MINERALS/ IRON/FA (ONE-A-DAY WOMENS FORMULA ORAL) 0 07-30 18:23: 57 Yes Take by mouth. [facility] MULTIVITS,C A,MINERALS/ IRON/FA (ONE-A-DAY WOMENS FORMULA ORAL) 0 07-30 18:23: 57 Yes Take by mouth. [facility] MULTIVITS,C A,MINERALS/ IRON/FA (ONE-A-DAY WOMENS FORMULA ORAL) 0 07-30 18:23: 57 Yes Take by mouth. [facility] MULTIVITS,C A,MINERALS/ IRON/FA (ONE-A-DAY WOMENS FORMULA ORAL) 0 07-30 18:23: 57 Yes Take by mouth. [facility] MULTIVITS,C A,MINERALS/ IRON/FA (ONE-A-DAY WOMENS FORMULA ORAL) 0 07-30 13:23: 57 Yes Take by mouth. [facility] norgestimat e-ethinyl estradiol 0.25-35 mg-mcg per tablet 0 -24 00:00: 00 Yes [id number] 1{tbl} Take 1 tablet by mouth daily. [facility] norgestimat e-ethinyl estradiol 0.25-35 mg-mcg per tablet 07-05 00:00: 00 Yes [id number] 1{tbl} Take 1 tablet by mouth daily. [facility] norgestimat e-ethinyl estradiol 0.25-35 mg-mcg per tablet 07-05 00:00: 00 Yes [id number] 1{tbl} Take 1 tablet by mouth daily. [facility] norgestimat e-ethinyl estradiol 0.25-35 mg-mcg per tablet 07-05 00:00: 00 Yes [id number] 1{tbl} Take 1 tablet by mouth daily. [facility] norgestimat e-ethinyl estradiol 0.25-35 mg-mcg per tablet 07-05 00:00: 00 05-25 00:00 :00 No [id number] 1{tbl} Take 1 tablet by mouth daily. [facility] acetaminoph en-hydrocod one 325 mg-5 mg oral tablet 2010-02 19:12: 00 No Gale Lacey 2 tab, Route: PO, Drug Form: TAB, ONCE, PRN Pain, Start date: 12/12/10 14:12:00 Liseth taylor Eric acetaminoph en-hydrocod one 325 mg-5 mg oral tablet 2010-02 19:12: 00 No Gale Lacey 2 tab, Route: PO, Drug Form: TAB, ONCE, PRN Pain, Start date: 12/12/10 14:12:00 Memlillian taylor Eric acetaminoph en-hydrocod one 325 mg-5 mg oral tablet 2010-02 19:12: 00 No Gale Lacey 2 tab, Route: PO, Drug Form: TAB, ONCE, PRN Pain, Start date: 12/12/10 14:12:00 Liseth claudia Eric acetaminoph en-hydrocod one 325 mg-5 mg oral tablet 2010-02 19:12: 00 No Gale Lacey 2 tab, Route: PO, Drug Form: TAB, ONCE, PRN Pain, Start date: 12/12/10 14:12:00 Memoria l Eric acetaminoph en-hydrocod one 325 mg-5 mg oral tablet 2010-02 19:12: 00 No Gale Contreras Maxian 2 tab, Route: PO, Drug Form: TAB, ONCE, PRN Pain, Start date: 12/12/10 14:12:00 Memoria l Fortescue acetaminoph en-hydrocod one 325 mg-5 mg oral tablet 2010-02 19:12: 00 No Gale Contreras Maxian 2 tab, Route: PO, Drug Form: TAB, ONCE, PRN Pain, Start date: 12/12/10 14:12:00 Memoria l Eric acetaminoph en-hydrocod one 325 mg-5 mg oral tablet 2010-02 19:12: 00 No Gale Contreras Maxian 2 tab, Route: PO, Drug Form: TAB, ONCE, PRN Pain, Start date: 12/12/10 14:12:00 Memoria l Eric acetaminoph en-hydrocod one 325 mg-5 mg oral tablet 2010-02 19:12: 00 No Gale Contreras Maxian 2 tab, Route: PO, Drug Form: TAB, ONCE, PRN Pain, Start date: 12/12/10 14:12:00 Memoria l Fortescue acetaminoph en-hydrocod one 325 mg-5 mg oral tablet 2010-02 19:12: 00 No Gale Contreras Maxian 2 tab, Route: PO, Drug Form: TAB, ONCE, PRN Pain, Start date: 12/12/10 14:12:00 Memlillian l Eric acetaminoph en-hydrocod one 325 mg-5 mg oral tablet 2010-02 19:12: 00 No Gale Contreras Maxian 2 tab, Route: PO, Drug Form: TAB, ONCE, PRN Pain, Start date: 12/12/10 14:12:00 Memoria l Eric acetaminoph en-hydrocod one 325 mg-5 mg oral tablet 2010-02 19:12: 00 No Gale Contreras Maxian 2 tab, Route: PO, Drug Form: TAB, ONCE, PRN Pain, Start date: 12/12/10 14:12:00 Memoria l Eric ondansetron 2010-02 19:10: 00 No Gale Rodriguezian 4 mg, 2 mL, Route: IVP, Drug form: INJ, ONCE, PRN Nausea & Vomiting, Start date: 12/12/10 14:10:00 Memoria claudia FinnEric morphine Sulfate 2010-02 19:10: 00 No Gale Diane Maxian 2 mg, 1 mL, Route: IVP, Drug form: INJ, Q5Min, PRN Pain Score 4-6, Start date: 12/12/10 14:10:00, Duration: 8 doses or times, Stop date: Limited # of times Memoria claudia Eric flumazenil 2010-02 19:10: 00 No Gale Diane Maxian 0.2 mg, 2 mL, Route: IVP, Drug form: INJ, PRN, PRN Other -See Comment, Initial dose, Start date: 12/12/10 14:10:00, Duration: 5 doses or times, Stop date: Limited # of times Memoria claudia Reyes hydromorpho ne 2010-02 19:10: 00 No Gale Diane Maxian 0.5 mg, 0.5 mL, Route: IVP, Drug form: SOLN, Q5Min, PRN Pain Score 4-6, Start date: 12/12/10 14:10:00, Duration: 5 doses or times, Stop date: Limited # of times Memoria claudia Reyes meperidine 2010-02 19:10: 00 No Gale Diane Maxian 12.5 mg, 0.25 mL, Route: IVP, Drug form: INJ, Q30Min, PRN Other -See Comment, For shivering, Start date: 12/12/10 14:10:00, Duration: 2 doses or times, Stop date: Limited # of times Maggioria claudia Reyes acetaminoph en-hydrocod one 325 mg-5 mg oral tablet 2010-02 19:10: 00 No Gale Diane Maxian 2 tab, Route: PO, Drug Form: TAB, Q4H, PRN Pain Score 4-6, Start date: 12/12/10 14:10:00, Duration: 30 day, Stop date: 01/11/11 14:09:00 Memoria claudia Reyes naloxone 2010-02 19:10: 00 No Gale Diane Maxian 0.04 mg, 0.1 mL, Route: IVP, Drug form: INJ, Q2MIN, PRN Narcotic Reversal, Start date: 12/12/10 14:10:00, Duration: 8 doses or times, Stop date: Limited # of times Memoria claudia Reyes fentanyl 2010-02 19:10: 00 No Gale Contrears Maxian 25 microgram, 0.5 mL, Route: IVP, Drug form: INJ, Q5Min, PRN Pain Score 4-6, Start date: 12/12/10 14:10:00, Duration: 4 doses or times, Stop date: Limited # of times Memoria claudia Reyes ondansetron 2010-02 19:10: 00 No Gale Contreras Maxian 4 mg, 2 mL, Route: IVP, Drug form: INJ, ONCE, PRN Nausea & Vomiting, Start date: 12/12/10 14:10:00 Memoria claudia Reyes morphine Sulfate 2010-02 19:10: 00 No Gale Contreras Maxian 2 mg, 1 mL, Route: IVP, Drug form: INJ, Q5Min, PRN Pain Score 4-6, Start date: 12/12/10 14:10:00, Duration: 8 doses or times, Stop date: Limited # of times Memoria claudia Reyes flumazenil 2010-02 19:10: 00 No aGle Contreras Maxian 0.2 mg, 2 mL, Route: IVP, Drug form: INJ, PRN, PRN Other -See Comment, Initial dose, Start date: 12/12/10 14:10:00, Duration: 5 doses or times, Stop date: Limited # of times Memoria claudia Reyes hydromorpho ne 2010-02 19:10: 00 No Gale Contreras Maxian 0.5 mg, 0.5 mL, Route: IVP, Drug form: SOLN, Q5Min, PRN Pain Score 4-6, Start date: 12/12/10 14:10:00, Duration: 5 doses or times, Stop date: Limited # of times Memoria claudia Reyes meperidine 2010-02 19:10: 00 No Gale Diane Maxian 12.5 mg, 0.25 mL, Route: IVP, Drug form: INJ, Q30Min, PRN Other -See Comment, For shivering, Start date: 12/12/10 14:10:00, Duration: 2 doses or times, Stop date: Limited # of times Memoria claudia Fortescue acetaminoph en-hydrocod one 325 mg-5 mg oral tablet 2010-02 19:10: 00 No Gale Diane Maxian 2 tab, Route: PO, Drug Form: TAB, Q4H, PRN Pain Score 4-6, Start date: 12/12/10 14:10:00, Duration: 30 day, Stop date: 01/11/11 14:09:00 Memoria claudia Reyes naloxone 2010-02 19:10: 00 No Gale Diane Maxian 0.04 mg, 0.1 mL, Route: IVP, Drug form: INJ, Q2MIN, PRN Narcotic Reversal, Start date: 12/12/10 14:10:00, Duration: 8 doses or times, Stop date: Limited # of times Memoria claudia Reyes fentanyl 2010-02 19:10: 00 No Gale Diane Maxian 25 microgram, 0.5 mL, Route: IVP, Drug form: INJ, Q5Min, PRN Pain Score 4-6, Start date: 12/12/10 14:10:00, Duration: 4 doses or times, Stop date: Limited # of times Memoria claudia Reyes ondansetron 2010-02 19:10: 00 No Gale Diane Maxian 4 mg, 2 mL, Route: IVP, Drug form: INJ, ONCE, PRN Nausea & Vomiting, Start date: 12/12/10 14:10:00 Memoria claudia Reyes morphine Sulfate 2010-02 19:10: 00 No Gale Diane Maxian 2 mg, 1 mL, Route: IVP, Drug form: INJ, Q5Min, PRN Pain Score 4-6, Start date: 12/12/10 14:10:00, Duration: 8 doses or times, Stop date: Limited # of times Memoria claudia Reyes flumazenil 2010-02 19:10: 00 No Gale Diane Maxian 0.2 mg, 2 mL, Route: IVP, Drug form: INJ, PRN, PRN Other -See Comment, Initial dose, Start date: 12/12/10 14:10:00, Duration: 5 doses or times, Stop date: Limited # of times Memoria claudia Reyes hydromorpho ne 2010-02 19:10: 00 No Gale Diane Maxian 0.5 mg, 0.5 mL, Route: IVP, Drug form: SOLN, Q5Min, PRN Pain Score 4-6, Start date: 12/12/10 14:10:00, Duration: 5 doses or times, Stop date: Limited # of times Memoria claudia Reyes meperidine 2010-02 19:10: 00 No Gale Diane Maxian 12.5 mg, 0.25 mL, Route: IVP, Drug form: INJ, Q30Min, PRN Other -See Comment, For shivering, Start date: 12/12/10 14:10:00, Duration: 2 doses or times, Stop date: Limited # of times Memoria claudia Reyes ondansetron 2010-02 19:10: 00 No Gale Contreras Maxian 4 mg, 2 mL, Route: IVP, Drug form: INJ, ONCE, PRN Nausea & Vomiting, Start date: 12/12/10 14:10:00 Memoria claudia Reyes acetaminoph en-hydrocod one 325 mg-5 mg oral tablet 2010-02 19:10: 00 No Gale Diane Maxian 2 tab, Route: PO, Drug Form: TAB, Q4H, PRN Pain Score 4-6, Start date: 12/12/10 14:10:00, Duration: 30 day, Stop date: 01/11/11 14:09:00 Memlillian Reyes naloxone 2010-02 19:10: 00 No Gale Contreras Maxian 0.04 mg, 0.1 mL, Route: IVP, Drug form: INJ, Q2MIN, PRN Narcotic Reversal, Start date: 12/12/10 14:10:00, Duration: 8 doses or times, Stop date: Limited # of times Memoria claudia Reyes fentanyl 2010-02 19:10: 00 No Gale Contreras Maxian 25 microgram, 0.5 mL, Route: IVP, Drug form: INJ, Q5Min, PRN Pain Score 4-6, Start date: 12/12/10 14:10:00, Duration: 4 doses or times, Stop date: Limited # of times Memoria claudia Reyes morphine Sulfate 2010-02 19:10: 00 No Gale Contreras Maxian 2 mg, 1 mL, Route: IVP, Drug form: INJ, Q5Min, PRN Pain Score 4-6, Start date: 12/12/10 14:10:00, Duration: 8 doses or times, Stop date: Limited # of times Maggioria claudia Reyes ondansetron 2010-02 19:10: 00 No Gale Contreras Maxian 4 mg, 2 mL, Route: IVP, Drug form: INJ, ONCE, PRN Nausea & Vomiting, Start date: 12/12/10 14:10:00 Memlillian Reyes morphine Sulfate 2010-02 19:10: 00 No Gale Contreras Maxian 2 mg, 1 mL, Route: IVP, Drug form: INJ, Q5Min, PRN Pain Score 4-6, Start date: 12/12/10 14:10:00, Duration: 8 doses or times, Stop date: Limited # of times Memoria claudia Reyes flumazenil 2010-02 19:10: 00 No Gale Contreras Maxian 0.2 mg, 2 mL, Route: IVP, Drug form: INJ, PRN, PRN Other -See Comment, Initial dose, Start date: 12/12/10 14:10:00, Duration: 5 doses or times, Stop date: Limited # of times Maggioria claudia Reyes hydromorpho ne 2010-02 19:10: 00 No Gale Contreras Maxian 0.5 mg, 0.5 mL, Route: IVP, Drug form: SOLN, Q5Min, PRN Pain Score 4-6, Start date: 12/12/10 14:10:00, Duration: 5 doses or times, Stop date: Limited # of times Memoria claudia Reyes meperidine 2010-02 19:10: 00 No Gale Contreras Maxian 12.5 mg, 0.25 mL, Route: IVP, Drug form: INJ, Q30Min, PRN Other -See Comment, For shivering, Start date: 12/12/10 14:10:00, Duration: 2 doses or times, Stop date: Limited # of times Memoria claudia Reyes acetaminoph en-hydrocod one 325 mg-5 mg oral tablet 2010-02 19:10: 00 No Gale Contreras Maxian 2 tab, Route: PO, Drug Form: TAB, Q4H, PRN Pain Score 4-6, Start date: 12/12/10 14:10:00, Duration: 30 day, Stop date: 01/11/11 14:09:00 Memlillian Reyes naloxone 2010-02 19:10: 00 No Gale Contreras Maxian 0.04 mg, 0.1 mL, Route: IVP, Drug form: INJ, Q2MIN, PRN Narcotic Reversal, Start date: 12/12/10 14:10:00, Duration: 8 doses or times, Stop date: Limited # of times Memoria claudia Reyes fentanyl 2010-02 19:10: 00 No Gale Contreras Maxian 25 microgram, 0.5 mL, Route: IVP, Drug form: INJ, Q5Min, PRN Pain Score 4-6, Start date: 12/12/10 14:10:00, Duration: 4 doses or times, Stop date: Limited # of times Memoria claudia Reyes flumazenil 2010-02 19:10: 00 No Gale Contreras Maxian 0.2 mg, 2 mL, Route: IVP, Drug form: INJ, PRN, PRN Other -See Comment, Initial dose, Start date: 12/12/10 14:10:00, Duration: 5 doses or times, Stop date: Limited # of times Memoria claudia Reyes ondansetron 2010-02 19:10: 00 No Gale Contreras Maxian 4 mg, 2 mL, Route: IVP, Drug form: INJ, ONCE, PRN Nausea & Vomiting, Start date: 12/12/10 14:10:00 Memoria claudia Reic hydromorpho ne 2010-02 19:10: 00 No Gale Contreras Maxian 0.5 mg, 0.5 mL, Route: IVP, Drug form: SOLN, Q5Min, PRN Pain Score 4-6, Start date: 12/12/10 14:10:00, Duration: 5 doses or times, Stop date: Limited # of times Memoria claudia Eric morphine Sulfate 2010-02 19:10: 00 No Gale Contreras Maxian 2 mg, 1 mL, Route: IVP, Drug form: INJ, Q5Min, PRN Pain Score 4-6, Start date: 12/12/10 14:10:00, Duration: 8 doses or times, Stop date: Limited # of times Memoria claudia Reyes flumazenil 2010-02 19:10: 00 No Gale Diane Maxian 0.2 mg, 2 mL, Route: IVP, Drug form: INJ, PRN, PRN Other -See Comment, Initial dose, Start date: 12/12/10 14:10:00, Duration: 5 doses or times, Stop date: Limited # of times Memoria claudia Reyes hydromorpho ne 2010-02 19:10: 00 No Gale Diane Maxian 0.5 mg, 0.5 mL, Route: IVP, Drug form: SOLN, Q5Min, PRN Pain Score 4-6, Start date: 12/12/10 14:10:00, Duration: 5 doses or times, Stop date: Limited # of times Memoria claudia Reyes meperidine 2010-02 19:10: 00 No Gale Diane Maxian 12.5 mg, 0.25 mL, Route: IVP, Drug form: INJ, Q30Min, PRN Other -See Comment, For shivering, Start date: 12/12/10 14:10:00, Duration: 2 doses or times, Stop date: Limited # of times Memoria claudia Reyes acetaminoph en-hydrocod one 325 mg-5 mg oral tablet 2010-02 19:10: 00 No Gale Contreras Maxian 2 tab, Route: PO, Drug Form: TAB, Q4H, PRN Pain Score 4-6, Start date: 12/12/10 14:10:00, Duration: 30 day, Stop date: 01/11/11 14:09:00 Memoria claudia Reyes naloxone 2010-02 19:10: 00 No Gale Diane Maxian 0.04 mg, 0.1 mL, Route: IVP, Drug form: INJ, Q2MIN, PRN Narcotic Reversal, Start date: 12/12/10 14:10:00, Duration: 8 doses or times, Stop date: Limited # of times Memoria claudia Reyes fentanyl 2010-02 19:10: 00 No Gale Contreras Maxian 25 microgram, 0.5 mL, Route: IVP, Drug form: INJ, Q5Min, PRN Pain Score 4-6, Start date: 12/12/10 14:10:00, Duration: 4 doses or times, Stop date: Limited # of times Liseth claudia Fortescue meperidine 2010-02 19:10: 00 No Gale Diane Maxian 12.5 mg, 0.25 mL, Route: IVP, Drug form: INJ, Q30Min, PRN Other -See Comment, For shivering, Start date: 12/12/10 14:10:00, Duration: 2 doses or times, Stop date: Limited # of times Maggilillian claudia Reyes ondansetron 2010-02 19:10: 00 No Gale Diane Maxian 4 mg, 2 mL, Route: IVP, Drug form: INJ, ONCE, PRN Nausea & Vomiting, Start date: 12/12/10 14:10:00 Liseth Reyes morphine Sulfate 2010-02 19:10: 00 No Gale Diane Maxian 2 mg, 1 mL, Route: IVP, Drug form: INJ, Q5Min, PRN Pain Score 4-6, Start date: 12/12/10 14:10:00, Duration: 8 doses or times, Stop date: Limited # of times Maggilillian claudia Reyes flumazenil 2010-02 19:10: 00 No Gale Diane Maxian 0.2 mg, 2 mL, Route: IVP, Drug form: INJ, PRN, PRN Other -See Comment, Initial dose, Start date: 12/12/10 14:10:00, Duration: 5 doses or times, Stop date: Limited # of times Maggilillian claudia Reyes hydromorpho ne 2010-02 19:10: 00 No Gale Diane Maxian 0.5 mg, 0.5 mL, Route: IVP, Drug form: SOLN, Q5Min, PRN Pain Score 4-6, Start date: 12/12/10 14:10:00, Duration: 5 doses or times, Stop date: Limited # of times Liseth Reyes acetaminoph en-hydrocod one 325 mg-5 mg oral tablet 2010-02 19:10: 00 No Gale Diane Maxian 2 tab, Route: PO, Drug Form: TAB, Q4H, PRN Pain Score 4-6, Start date: 12/12/10 14:10:00, Duration: 30 day, Stop date: 01/11/11 14:09:00 Memlillian Reyes meperidine 2010-02 19:10: 00 No Gale Diane Maxian 12.5 mg, 0.25 mL, Route: IVP, Drug form: INJ, Q30Min, PRN Other -See Comment, For shivering, Start date: 12/12/10 14:10:00, Duration: 2 doses or times, Stop date: Limited # of times Memoria claudia Reyes acetaminoph en-hydrocod one 325 mg-5 mg oral tablet 2010-02 19:10: 00 No Gale Diane Maxian 2 tab, Route: PO, Drug Form: TAB, Q4H, PRN Pain Score 4-6, Start date: 12/12/10 14:10:00, Duration: 30 day, Stop date: 01/11/11 14:09:00 Memoria claudia Reyes naloxone 2010-02 19:10: 00 No Gale C Maxian 0.04 mg, 0.1 mL, Route: IVP, Drug form: INJ, Q2MIN, PRN Narcotic Reversal, Start date: 12/12/10 14:10:00, Duration: 8 doses or times, Stop date: Limited # of times Memoria claudia FinnFortescue fentanyl 2010-02 19:10: 00 No Gale C Maxian 25 microgram, 0.5 mL, Route: IVP, Drug form: INJ, Q5Min, PRN Pain Score 4-6, Start date: 12/12/10 14:10:00, Duration: 4 doses or times, Stop date: Limited # of times Memoria l Eric naloxone 2010-02 19:10: 00 No Gale C Maxian 0.04 mg, 0.1 mL, Route: IVP, Drug form: INJ, Q2MIN, PRN Narcotic Reversal, Start date: 12/12/10 14:10:00, Duration: 8 doses or times, Stop date: Limited # of times Memoria l Fortescue fentanyl 2010-02 19:10: 00 No Gale C Maxian 25 microgram, 0.5 mL, Route: IVP, Drug form: INJ, Q5Min, PRN Pain Score 4-6, Start date: 12/12/10 14:10:00, Duration: 4 doses or times, Stop date: Limited # of times Memoria claudia FinnFortescue ondansetron 2010-02 19:10: 00 No Gale Diane Maxian 4 mg, 2 mL, Route: IVP, Drug form: INJ, ONCE, PRN Nausea & Vomiting, Start date: 12/12/10 14:10:00 Memoria claudia Eric morphine Sulfate 2010-02 19:10: 00 No Gale Diane Maxian 2 mg, 1 mL, Route: IVP, Drug form: INJ, Q5Min, PRN Pain Score 4-6, Start date: 12/12/10 14:10:00, Duration: 8 doses or times, Stop date: Limited # of times Memoria claudia Reyes flumazenil 2010-02 19:10: 00 No Gale Diane Maxian 0.2 mg, 2 mL, Route: IVP, Drug form: INJ, PRN, PRN Other -See Comment, Initial dose, Start date: 12/12/10 14:10:00, Duration: 5 doses or times, Stop date: Limited # of times Memoria claudia Reyes hydromorpho ne 2010-02 19:10: 00 No Gale Diane Maxian 0.5 mg, 0.5 mL, Route: IVP, Drug form: SOLN, Q5Min, PRN Pain Score 4-6, Start date: 12/12/10 14:10:00, Duration: 5 doses or times, Stop date: Limited # of times Maggioria claudia Reyes meperidine 2010-02 19:10: 00 No Gale Diane Maxian 12.5 mg, 0.25 mL, Route: IVP, Drug form: INJ, Q30Min, PRN Other -See Comment, For shivering, Start date: 12/12/10 14:10:00, Duration: 2 doses or times, Stop date: Limited # of times Memoria claudia Reyes acetaminoph en-hydrocod one 325 mg-5 mg oral tablet 2010-02 19:10: 00 No Gale Diane Maxian 2 tab, Route: PO, Drug Form: TAB, Q4H, PRN Pain Score 4-6, Start date: 12/12/10 14:10:00, Duration: 30 day, Stop date: 01/11/11 14:09:00 Memoria claudia Reyes naloxone 2010-02 19:10: 00 No Gale Contreras Maxian 0.04 mg, 0.1 mL, Route: IVP, Drug form: INJ, Q2MIN, PRN Narcotic Reversal, Start date: 12/12/10 14:10:00, Duration: 8 doses or times, Stop date: Limited # of times Memoria claudia Ryees fentanyl 2010-02 19:10: 00 No Gale Contrreas Maxian 25 microgram, 0.5 mL, Route: IVP, Drug form: INJ, Q5Min, PRN Pain Score 4-6, Start date: 12/12/10 14:10:00, Duration: 4 doses or times, Stop date: Limited # of times Memoria claudia Reyes ondansetron 2010-02 19:10: 00 No Gale Contreras Maxian 4 mg, 2 mL, Route: IVP, Drug form: INJ, ONCE, PRN Nausea & Vomiting, Start date: 12/12/10 14:10:00 Memoria claudia Reyes morphine Sulfate 2010-02 19:10: 00 No Gale Contreras Maxian 2 mg, 1 mL, Route: IVP, Drug form: INJ, Q5Min, PRN Pain Score 4-6, Start date: 12/12/10 14:10:00, Duration: 8 doses or times, Stop date: Limited # of times Memoria claudia Reyes flumazenil 2010-02 19:10: 00 No Gale Contreras Maxian 0.2 mg, 2 mL, Route: IVP, Drug form: INJ, PRN, PRN Other -See Comment, Initial dose, Start date: 12/12/10 14:10:00, Duration: 5 doses or times, Stop date: Limited # of times Memoria claudia Reyes hydromorpho ne 2010-02 19:10: 00 No Gale Diane Maxian 0.5 mg, 0.5 mL, Route: IVP, Drug form: SOLN, Q5Min, PRN Pain Score 4-6, Start date: 12/12/10 14:10:00, Duration: 5 doses or times, Stop date: Limited # of times Memoria claudia Reyes meperidine 2010-02 19:10: 00 No Gale Contreras Maxian 12.5 mg, 0.25 mL, Route: IVP, Drug form: INJ, Q30Min, PRN Other -See Comment, For shivering, Start date: 12/12/10 14:10:00, Duration: 2 doses or times, Stop date: Limited # of times Memoria claudia Reyes acetaminoph en-hydrocod one 325 mg-5 mg oral tablet 2010-02 19:10: 00 No Gale Contreras Maxian 2 tab, Route: PO, Drug Form: TAB, Q4H, PRN Pain Score 4-6, Start date: 12/12/10 14:10:00, Duration: 30 day, Stop date: 01/11/11 14:09:00 Liseth Reyes naloxone 2010-02 19:10: 00 No Gale Contreras Maxian 0.04 mg, 0.1 mL, Route: IVP, Drug form: INJ, Q2MIN, PRN Narcotic Reversal, Start date: 12/12/10 14:10:00, Duration: 8 doses or times, Stop date: Limited # of times Memoria claudia Reyes fentanyl 2010-02 19:10: 00 No Gale Contreras Maxian 25 microgram, 0.5 mL, Route: IVP, Drug form: INJ, Q5Min, PRN Pain Score 4-6, Start date: 12/12/10 14:10:00, Duration: 4 doses or times, Stop date: Limited # of times Maggioria claudia Reyes ondansetron 2010-02 19:10: 00 No Gale Contreras Maxian 4 mg, 2 mL, Route: IVP, Drug form: INJ, ONCE, PRN Nausea & Vomiting, Start date: 12/12/10 14:10:00 Maggioria claudia Reyes morphine Sulfate 2010-02 19:10: 00 No Gale Contreras Maxian 2 mg, 1 mL, Route: IVP, Drug form: INJ, Q5Min, PRN Pain Score 4-6, Start date: 12/12/10 14:10:00, Duration: 8 doses or times, Stop date: Limited # of times Memoria claudia Reyes flumazenil 2010-02 19:10: 00 No Gale Contreras Maxian 0.2 mg, 2 mL, Route: IVP, Drug form: INJ, PRN, PRN Other -See Comment, Initial dose, Start date: 12/12/10 14:10:00, Duration: 5 doses or times, Stop date: Limited # of times Memoria claudia Reyes hydromorpho ne 2010-02 19:10: 00 No Gale Contreras Maxian 0.5 mg, 0.5 mL, Route: IVP, Drug form: SOLN, Q5Min, PRN Pain Score 4-6, Start date: 12/12/10 14:10:00, Duration: 5 doses or times, Stop date: Limited # of times Memoria claudia Reyes meperidine 2010-02 19:10: 00 No Gale Contreras Maxian 12.5 mg, 0.25 mL, Route: IVP, Drug form: INJ, Q30Min, PRN Other -See Comment, For shivering, Start date: 12/12/10 14:10:00, Duration: 2 doses or times, Stop date: Limited # of times Memoria claudia Reyes acetaminoph en-hydrocod one 325 mg-5 mg oral tablet 2010-02 19:10: 00 No Gale Contreras Maxian 2 tab, Route: PO, Drug Form: TAB, Q4H, PRN Pain Score 4-6, Start date: 12/12/10 14:10:00, Duration: 30 day, Stop date: 01/11/11 14:09:00 Liseth Reyes naloxone 2010-02 19:10: 00 No Gale Contreras Maxian 0.04 mg, 0.1 mL, Route: IVP, Drug form: INJ, Q2MIN, PRN Narcotic Reversal, Start date: 12/12/10 14:10:00, Duration: 8 doses or times, Stop date: Limited # of times Memoria claudia Reyes fentanyl 2010-02 19:10: 00 No Gale Contreras Maxian 25 microgram, 0.5 mL, Route: IVP, Drug form: INJ, Q5Min, PRN Pain Score 4-6, Start date: 12/12/10 14:10:00, Duration: 4 doses or times, Stop date: Limited # of times Memoria claudia Reyes ondansetron 2010-02 19:10: 00 No Gale Contreras Maxian 4 mg, 2 mL, Route: IVP, Drug form: INJ, ONCE, PRN Nausea & Vomiting, Start date: 12/12/10 14:10:00 Memoria claudia FinnFortescue morphine Sulfate 2010-02 19:10: 00 No Gale Contreras Maxian 2 mg, 1 mL, Route: IVP, Drug form: INJ, Q5Min, PRN Pain Score 4-6, Start date: 12/12/10 14:10:00, Duration: 8 doses or times, Stop date: Limited # of times Memoria claudia Eric flumazenil 2010-02 19:10: 00 No Gale Contreras Maxian 0.2 mg, 2 mL, Route: IVP, Drug form: INJ, PRN, PRN Other -See Comment, Initial dose, Start date: 12/12/10 14:10:00, Duration: 5 doses or times, Stop date: Limited # of times Memoria claudia Reyes hydromorpho ne 2010-02 19:10: 00 No Gale Contreras Maxian 0.5 mg, 0.5 mL, Route: IVP, Drug form: SOLN, Q5Min, PRN Pain Score 4-6, Start date: 12/12/10 14:10:00, Duration: 5 doses or times, Stop date: Limited # of times Memoria claudia Reyes meperidine 2010-02 19:10: 00 No Gale Contreras Maxian 12.5 mg, 0.25 mL, Route: IVP, Drug form: INJ, Q30Min, PRN Other -See Comment, For shivering, Start date: 12/12/10 14:10:00, Duration: 2 doses or times, Stop date: Limited # of times Memoria claudia Reyes acetaminoph en-hydrocod one 325 mg-5 mg oral tablet 2010-02 19:10: 00 No Gale Contreras Maxian 2 tab, Route: PO, Drug Form: TAB, Q4H, PRN Pain Score 4-6, Start date: 12/12/10 14:10:00, Duration: 30 day, Stop date: 01/11/11 14:09:00 Memlillian Reyes naloxone 2010-02 19:10: 00 No Gale Contreras Maxian 0.04 mg, 0.1 mL, Route: IVP, Drug form: INJ, Q2MIN, PRN Narcotic Reversal, Start date: 12/12/10 14:10:00, Duration: 8 doses or times, Stop date: Limited # of times Memoria l Eric fentanyl 2010-02 19:10: 00 No Gale Rodriguezian 25 microgram, 0.5 mL, Route: IVP, Drug form: INJ, Q5Min, PRN Pain Score 4-6, Start date: 12/12/10 14:10:00, Duration: 4 doses or times, Stop date: Limited # of times Memoria l Eric lidocaine 1% 2010-02 18:00: 00 No Sadiq Garcia 0.5 mL, Route: SUB-Q, Drug Form: INJ, ONCALL, Start date: 12/12/10 13:00:00, Duration: 1 doses or times Memoria l Fortescue lidocaine 1% 2010-02 18:00: 00 No Sadiq Garcia 0.5 mL, Route: SUB-Q, Drug Form: INJ, ONCALL, Start date: 12/12/10 13:00:00, Duration: 1 doses or times Memoria l Fortescue lidocaine 1% 2010-02 18:00: 00 No Sadiq Garcia 0.5 mL, Route: SUB-Q, Drug Form: INJ, ONCALL, Start date: 12/12/10 13:00:00, Duration: 1 doses or times Memoria l Fortescue lidocaine 1% 2010-02 18:00: 00 No Sadiq Garcia 0.5 mL, Route: SUB-Q, Drug Form: INJ, ONCALL, Start date: 12/12/10 13:00:00, Duration: 1 doses or times Memoria l Eric lidocaine 1% 2010-02 18:00: 00 No Sadiq Garcia 0.5 mL, Route: SUB-Q, Drug Form: INJ, ONCALL, Start date: 12/12/10 13:00:00, Duration: 1 doses or times Memoria l Fortescue lidocaine 1% 2010-02 18:00: 00 No Sadiq Garcia 0.5 mL, Route: SUB-Q, Drug Form: INJ, ONCALL, Start date: 12/12/10 13:00:00, Duration: 1 doses or times Memoria l Fortescue lidocaine 1% 2010-02 18:00: 00 No Sadiq Garcia 0.5 mL, Route: SUB-Q, Drug Form: INJ, ONCALL, Start date: 12/12/10 13:00:00, Duration: 1 doses or times Memoria l Eric lidocaine 1% 2010-02 18:00: 00 No Sadiq Garcia 0.5 mL, Route: SUB-Q, Drug Form: INJ, ONCALL, Start date: 12/12/10 13:00:00, Duration: 1 doses or times Memoria l Fortescue lidocaine 1% 2010-02 18:00: 00 No Sadiq Garcia 0.5 mL, Route: SUB-Q, Drug Form: INJ, ONCALL, Start date: 12/12/10 13:00:00, Duration: 1 doses or times Memoria l Fortescue lidocaine 1% 2010-02 18:00: 00 No Sadiq Garcia 0.5 mL, Route: SUB-Q, Drug Form: INJ, ONCALL, Start date: 12/12/10 13:00:00, Duration: 1 doses or times Memoria l Eric lidocaine 1% 2010-02 18:00: 00 No Sadiq Garcia 0.5 mL, Route: SUB-Q, Drug Form: INJ, ONCALL, Start date: 12/12/10 13:00:00, Duration: 1 doses or times Memoria l Fortescue Lactated Ringers IV 500 mL 2010-02 17:23: 00 No Sandie Littlejohn Payan-Ly nch 500 mL, Rate: 75 ml/hr, Infuse over: 6.7 hr, Route: IV, Total Volume: 500, Start date: 12/12/10 12:23:00, Duration: 30 day, Stop date: 01/11/11 12:22:00 Memoria l Fortescue Lactated Ringers IV 500 mL 2010-02 17:23: 00 No Sandie Littlejohn Payan-Ly nch 500 mL, Rate: 75 ml/hr, Infuse over: 6.7 hr, Route: IV, Total Volume: 500, Start date: 12/12/10 12:23:00, Duration: 30 day, Stop date: 01/11/11 12:22:00 Memoria l Fortescue Lactated Ringers IV 500 mL 2010-02 17:23: 00 No Sandie K Payan-Ly nch 500 mL, Rate: 75 ml/hr, Infuse over: 6.7 hr, Route: IV, Total Volume: 500, Start date: 12/12/10 12:23:00, Duration: 30 day, Stop date: 01/11/11 12:22:00 Memoria l Eric Lactated Ringers IV 500 mL 2010-02 17:23: 00 No Sandie K Payan-Ly nch 500 mL, Rate: 75 ml/hr, Infuse over: 6.7 hr, Route: IV, Total Volume: 500, Start date: 12/12/10 12:23:00, Duration: 30 day, Stop date: 01/11/11 12:22:00 Memoria l Fortescue Lactated Ringers IV 500 mL 2010-02 17:23: 00 No Sandie K Payan-Ly nch 500 mL, Rate: 75 ml/hr, Infuse over: 6.7 hr, Route: IV, Total Volume: 500, Start date: 12/12/10 12:23:00, Duration: 30 day, Stop date: 01/11/11 12:22:00 Memoria l Fortescue Lactated Ringers IV 500 mL 2010-02 17:23: 00 No Sandie K Payan-Ly nch 500 mL, Rate: 75 ml/hr, Infuse over: 6.7 hr, Route: IV, Total Volume: 500, Start date: 12/12/10 12:23:00, Duration: 30 day, Stop date: 01/11/11 12:22:00 Memoria l Fortescue Lactated Ringers IV 500 mL 2010-02 17:23: 00 No Sandie K Payan-Ly nch 500 mL, Rate: 75 ml/hr, Infuse over: 6.7 hr, Route: IV, Total Volume: 500, Start date: 12/12/10 12:23:00, Duration: 30 day, Stop date: 01/11/11 12:22:00 Memoria l Fortescue Lactated Ringers IV 500 mL 2010-02 17:23: 00 No Sandie Littlejohn Payan-Ly nch 500 mL, Rate: 75 ml/hr, Infuse over: 6.7 hr, Route: IV, Total Volume: 500, Start date: 12/12/10 12:23:00, Duration: 30 day, Stop date: 01/11/11 12:22:00 Memoria l Eric Lactated Ringers IV 500 mL 2010-02 17:23: 00 No Sandie Littlejohn Payan-Ly nch 500 mL, Rate: 75 ml/hr, Infuse over: 6.7 hr, Route: IV, Total Volume: 500, Start date: 12/12/10 12:23:00, Duration: 30 day, Stop date: 01/11/11 12:22:00 Memoria l Fortescue Lactated Ringers IV 500 mL 2010-02 17:23: 00 No Sandie Littlejohn Payan-Ly nch 500 mL, Rate: 75 ml/hr, Infuse over: 6.7 hr, Route: IV, Total Volume: 500, Start date: 12/12/10 12:23:00, Duration: 30 day, Stop date: 01/11/11 12:22:00 Memoria l Eric Lactated Ringers IV 500 mL 2010-02 17:23: 00 No Sandie Littlejohn Payan-Ly nch 500 mL, Rate: 75 ml/hr, Infuse over: 6.7 hr, Route: IV, Total Volume: 500, Start date: 12/12/10 12:23:00, Duration: 30 day, Stop date: 01/11/11 12:22:00 Memoria l Eric Vicodin 5/500 oral tablet 2010-02 17:21: 00 No Sandie Littlejohn Payan-Ly nch 2 tab, Route: PO, Drug Form: TAB, POST OP, PRN Pain, Start date: 12/12/10 12:21:00, Duration: 30 day, Stop date: 01/11/11 11:20:00 Memoria l Fortescue Vicodin 5/500 oral tablet 2010-02 17:21: 00 No Sandie Payan-Ly nch 2 tab, Route: PO, Drug Form: TAB, POST OP, PRN Pain, Start date: 12/12/10 12:21:00, Duration: 30 day, Stop date: 01/11/11 11:20:00 Memoria l Fortescue Vicodin 5/500 oral tablet 2010-02 17:21: 00 No Sandie Payan-Ly nch 2 tab, Route: PO, Drug Form: TAB, POST OP, PRN Pain, Start date: 12/12/10 12:21:00, Duration: 30 day, Stop date: 01/11/11 11:20:00 Memoria l Eric Vicodin 5/500 oral tablet 2010-02 17:21: 00 No Sandie Payan-Ly nch 2 tab, Route: PO, Drug Form: TAB, POST OP, PRN Pain, Start date: 12/12/10 12:21:00, Duration: 30 day, Stop date: 01/11/11 11:20:00 Memoria l Eric Vicodin 5/500 oral tablet 2010-02 17:21: 00 No Sandie Payan-Ly nch 2 tab, Route: PO, Drug Form: TAB, POST OP, PRN Pain, Start date: 12/12/10 12:21:00, Duration: 30 day, Stop date: 01/11/11 11:20:00 Memoria l Fortescue Vicodin 5/500 oral tablet 2010-02 17:21: 00 No Sandie Payan-Ly nch 2 tab, Route: PO, Drug Form: TAB, POST OP, PRN Pain, Start date: 12/12/10 12:21:00, Duration: 30 day, Stop date: 01/11/11 11:20:00 Memoria l Eric Vicodin 5/500 oral tablet 2010-02 17:21: 00 No Sandie Payan-Ly nch 2 tab, Route: PO, Drug Form: TAB, POST OP, PRN Pain, Start date: 12/12/10 12:21:00, Duration: 30 day, Stop date: 01/11/11 11:20:00 Memoria l Eric Vicodin 5/500 oral tablet 2010-02 17:21: 00 No Sandie Payan-Ly nch 2 tab, Route: PO, Drug Form: TAB, POST OP, PRN Pain, Start date: 12/12/10 12:21:00, Duration: 30 day, Stop date: 01/11/11 11:20:00 Memoria l Fortescue Vicodin 5/500 oral tablet 2010-02 17:21: 00 No Sandie Payan-Ly nch 2 tab, Route: PO, Drug Form: TAB, POST OP, PRN Pain, Start date: 12/12/10 12:21:00, Duration: 30 day, Stop date: 01/11/11 11:20:00 Memoria l Eric Vicodin 5/500 oral tablet 2010-02 17:21: 00 No Sandie Payan-Ly nch 2 tab, Route: PO, Drug Form: TAB, POST OP, PRN Pain, Start date: 12/12/10 12:21:00, Duration: 30 day, Stop date: 01/11/11 11:20:00 Memoria l Eric Vicodin 5/500 oral tablet 2010-02 17:21: 00 No Sandie Payan-Ly nch 2 tab, Route: PO, Drug Form: TAB, POST OP, PRN Pain, Start date: 12/12/10 12:21:00, Duration: 30 day, Stop date: 01/11/11 11:20:00 Memoria l Fortescue Toradol 10 mg oral tablet 2010-02 17:20: 32 Yes Sandie Payan-Ly nch 10 mg, 1 tab, PO, Q6H, PRN, 20 tab, Pain, Substituti on Allowed, TAB Memoria l Fortescue Toradol 10 mg oral tablet 2010-02 17:20: 32 Yes Sandie Payan-Ly nch 10 mg, 1 tab, PO, Q6H, PRN, 20 tab, Pain, Substituti on Allowed, TAB Memoria l Fortescue Toradol 10 mg oral tablet 2010-02 17:20: 32 Yes Sandie Payan-Ly nch 10 mg, 1 tab, PO, Q6H, PRN, 20 tab, Pain, Substituti on Allowed, TAB Memoria l Eric Toradol 10 mg oral tablet 2010-02 17:20: 32 Yes Sandie Payan-Ly nch 10 mg, 1 tab, PO, Q6H, PRN, 20 tab, Pain, Substituti on Allowed, TAB Memoria l Fortescue Toradol 10 mg oral tablet 2010-02 17:20: 32 Yes Sandie Payan-Ly nch 10 mg, 1 tab, PO, Q6H, PRN, 20 tab, Pain, Substituti on Allowed, TAB Memoria l Eric Toradol 10 mg oral tablet 2010-02 17:20: 32 Yes Sandie Castelanmore-Ly nch 10 mg, 1 tab, PO, Q6H, PRN, 20 tab, Pain, Substituti on Allowed, TAB Memoria l Eric Toradol 10 mg oral tablet 2010-02 17:20: 32 Yes Sandie Payan-Ly nch 10 mg, 1 tab, PO, Q6H, PRN, 20 tab, Pain, Substituti on Allowed, TAB Memoria l Fortescue Toradol 10 mg oral tablet 2010-02 17:20: 32 Yes Sandie Eron CastelanPayan-Ly nch 10 mg, 1 tab, PO, Q6H, PRN, 20 tab, Pain, Substituti on Allowed, TAB Memoria l Fortescue Toradol 10 mg oral tablet 2010-02 17:20: 32 Yes Sandie Payan-Ly nch 10 mg, 1 tab, PO, Q6H, PRN, 20 tab, Pain, Substituti on Allowed, TAB Memoria l Fortescue Toradol 10 mg oral tablet 2010-02 17:20: 32 Yes Sandie Payan-Ly nch 10 mg, 1 tab, PO, Q6H, PRN, 20 tab, Pain, Substituti on Allowed, TAB Memoria l Eric Toradol 10 mg oral tablet 2010-02 17:20: 32 Yes Sandie Eron CastelanPaayn-Ly nch 10 mg, 1 tab, PO, Q6H, PRN, 20 tab, Pain, Substituti on Allowed, TAB Memoria l Fortescue Vicodin 5/500 oral tablet 2010-02 17:20: 22 Yes Sandie Eron CastelanPayan-Ly nch 1-2 tablets, PO, Q4-6H, PRN, 40 tab, 1, 1, for Pain, Substituti on Allowed, Maintenanc e Memoria l Fortescue Vicodin 5/500 oral tablet 2010-02 17:20: 22 Yes Sandie Eron Payan-Ly nch 1-2 tablets, PO, Q4-6H, PRN, 40 tab, 1, 1, for Pain, Substituti on Allowed, Maintenanc e Memoria l Fortescue Vicodin 5/500 oral tablet 2010-02 17:20: 22 Yes Sandie Eron Payan-Ly nch 1-2 tablets, PO, Q4-6H, PRN, 40 tab, 1, 1, for Pain, Substituti on Allowed, Maintenanc e Memoria l Fortescue Vicodin 5/500 oral tablet 2010-02 17:20: 22 Yes Sandie Eron Payan-Ly nch 1-2 tablets, PO, Q4-6H, PRN, 40 tab, 1, 1, for Pain, Substituti on Allowed, Maintenanc e Memoria l Fortescue Vicodin 5/500 oral tablet 2010-02 17:20: 22 Yes Sandie Eron Payan-Ly nch 1-2 tablets, PO, Q4-6H, PRN, 40 tab, 1, 1, for Pain, Substituti on Allowed, Maintenanc e Memoria l Fortescue Vicodin 5/500 oral tablet 2010-02 17:20: 22 Yes Sandie Eron Payan-Ly nch 1-2 tablets, PO, Q4-6H, PRN, 40 tab, 1, 1, for Pain, Substituti on Allowed, Maintenanc e Memoria l Fortescue Vicodin 5/500 oral tablet 2010-02 17:20: 22 Yes Sandie Eron Payan-Ly nch 1-2 tablets, PO, Q4-6H, PRN, 40 tab, 1, 1, for Pain, Substituti on Allowed, Maintenanc e Memoria l Fortescue Vicodin 5/500 oral tablet 2010-02 17:20: 22 Yes Sandie Eron Payan-Ly nch 1-2 tablets, PO, Q4-6H, PRN, 40 tab, 1, 1, for Pain, Substituti on Allowed, Maintenanc e Memoria l Fortescue Vicodin 5/500 oral tablet 2010-02 17:20: 22 Yes Sandie Eron Payan-Ly nch 1-2 tablets, PO, Q4-6H, PRN, 40 tab, 1, 1, for Pain, Substituti on Allowed, Maintenanc e Memoria l Fortescue Vicodin 5/500 oral tablet 2010-02 17:20: 22 Yes Sandie Littlejohn Payan-Ly nch 1-2 tablets, PO, Q4-6H, PRN, 40 tab, 1, 1, for Pain, Substituti on Allowed, Maintenanc e Memoria l Eric Vicodin 5/500 oral tablet 2010-02 17:20: 22 Yes Sandie Littlejohn Payan-Ly nch 1-2 tablets, PO, Q4-6H, PRN, 40 tab, 1, 1, for Pain, Substituti on Allowed, Maintenanc e Memoria l Eric Lactated Ringers Injection IV 1,000 mL 2010-02 17:19: 00 No Sadiq Garcia 1,000 mL, Rate: 25 ml/hr, Infuse over: 40 hr, Route: IV, Total Volume: 1,000, Start date: 12/12/10 12:19:00, Duration: 30 day, Stop date: 01/11/11 12:18:00 Memoria l Eric Lactated Ringers Injection IV 1,000 mL 2010-02 17:19: 00 No Sadiq Garcia 1,000 mL, Rate: 25 ml/hr, Infuse over: 40 hr, Route: IV, Total Volume: 1,000, Start date: 12/12/10 12:19:00, Duration: 30 day, Stop date: 01/11/11 12:18:00 Memoria l Fortescue Lactated Ringers Injection IV 1,000 mL 2010-02 17:19: 00 No Sadiq Garcia 1,000 mL, Rate: 25 ml/hr, Infuse over: 40 hr, Route: IV, Total Volume: 1,000, Start date: 12/12/10 12:19:00, Duration: 30 day, Stop date: 01/11/11 12:18:00 Memoria l Eric Lactated Ringers Injection IV 1,000 mL 2010-02 17:19: 00 No Sadiq Garcia 1,000 mL, Rate: 25 ml/hr, Infuse over: 40 hr, Route: IV, Total Volume: 1,000, Start date: 12/12/10 12:19:00, Duration: 30 day, Stop date: 01/11/11 12:18:00 Memoria l Fortescue Lactated Ringers Injection IV 1,000 mL 2010-02 17:19: 00 No Sadiq Garcia 1,000 mL, Rate: 25 ml/hr, Infuse over: 40 hr, Route: IV, Total Volume: 1,000, Start date: 12/12/10 12:19:00, Duration: 30 day, Stop date: 01/11/11 12:18:00 Memoria l Eric Lactated Ringers Injection IV 1,000 mL 2010-02 17:19: 00 No Sadiq Garcia 1,000 mL, Rate: 25 ml/hr, Infuse over: 40 hr, Route: IV, Total Volume: 1,000, Start date: 12/12/10 12:19:00, Duration: 30 day, Stop date: 01/11/11 12:18:00 Memoria l Eric Lactated Ringers Injection IV 1,000 mL 2010-02 17:19: 00 No Sadiq Garcia 1,000 mL, Rate: 25 ml/hr, Infuse over: 40 hr, Route: IV, Total Volume: 1,000, Start date: 12/12/10 12:19:00, Duration: 30 day, Stop date: 01/11/11 12:18:00 Memoria l Fortescue Lactated Ringers Injection IV 1,000 mL 2010-02 17:19: 00 No Sadiq Garcia 1,000 mL, Rate: 25 ml/hr, Infuse over: 40 hr, Route: IV, Total Volume: 1,000, Start date: 12/12/10 12:19:00, Duration: 30 day, Stop date: 01/11/11 12:18:00 Memoria l Fortescue Lactated Ringers Injection IV 1,000 mL 2010-02 17:19: 00 No Sadiq Garcia 1,000 mL, Rate: 25 ml/hr, Infuse over: 40 hr, Route: IV, Total Volume: 1,000, Start date: 12/12/10 12:19:00, Duration: 30 day, Stop date: 01/11/11 12:18:00 Liseth Reyes Lactated Ringers Injection IV 1,000 mL 2010-02 17:19: 00 No Sadiq Garcia 1,000 mL, Rate: 25 ml/hr, Infuse over: 40 hr, Route: IV, Total Volume: 1,000, Start date: 12/12/10 12:19:00, Duration: 30 day, Stop date: 01/11/11 12:18:00 Liseth Reyes Lactated Ringers Injection IV 1,000 mL 2010-02 17:19: 00 No Sadiq Garcia 1,000 mL, Rate: 25 ml/hr, Infuse over: 40 hr, Route: IV, Total Volume: 1,000, Start date: 12/12/10 12:19:00, Duration: 30 day, Stop date: 01/11/11 12:18:00 Liseth Reyes fluconazole 150 mg tablet Take 1 tablet every 72 hours by oral route. fluconazole 150 mg tablet Take 1 tablet every 72 hours by oral route. No 1 fluconazol e 150 mg tablet Take 1 tablet every 72 hours by oral route. [facility] Vyvanse 40 mg capsule TAKE ONE (1) CAPSULE(S) BY MOUTH DAILY IN THE MORNING. Vyvanse 40 mg capsule TAKE ONE (1) CAPSULE(S) BY MOUTH DAILY IN THE MORNING. No Vyvanse 40 mg capsule TAKE ONE (1) CAPSULE(S) BY MOUTH DAILY IN THE MORNING. [facility] Vital Signs Vital Name Observation Time Observation Value Comments S ource Systolic blood pressure 2022-12-07 18:44:00 116 mm[Hg] [facility] Diastolic blood pressure 2022-12-07 18:44:00 76 mm[Hg] [facility] Heart rate 2022-12-07 18:44:00 100 /min [facility] Body temperature 2022-12-07 18:44:00 36.22 [facility] Body height 2022-12-07 18:44:00 [facility]6 [facility] weight 2022-12-07 18:44:00 [facility]697 [facility] BMI 2022-12-07 18:44:00 30.16 kg/m2 [facility] BP Diastolic 2022-08-04 00:00:00 79 mm[Hg] [facility] Height 2022-08-04 00:00:00 60 [in_i] [facility] BMI (Body Mass Index) 2022-08-04 00:00:00 31.8 kg/m2 [facility] BP Systolic 2022-08-04 00:00:00 132 mm[Hg] [facility] Body Weight 2022-08-04 00:00:00 163 [lb_av] [facility] Systolic blood pressure 2020-07-20 18:15:00 157 mm[Hg] [facility] Diastolic blood pressure 2020-07-20 18:15:00 79 mm[Hg] [facility] Heart rate 2020-07-20 18:15:00 92 /min [facility] Body height 2020-07-20 18:15:00 152.4 cm [facility] Body weight 2020-07-20 18:15:00 105.688 kg [facility] BMI 2020-07-20 18:15:00 45.50 kg/m2 [facility] Systolic (mm Hg) 2023-02-20 05:49:00 [facility] Diastolic (mm Hg) 2023-02-20 05:49:00 [facility] Height 2023-02-20 04:13:00 5 [ft_i] [facility] BMI Calculated 2023-02-20 04:13:00 [facility] Weight 2023-02-20 04:13:00 [facility] Rate 2023-02-20 04:13:00 [facility] Temperature Oral (F) 2023-02-20 04:13:00 98.6 F [facility] Heart Rate 2022-11-27 21:19:30 [facility] Temperature Oral (F) 2022-11-27 21:19:11 97.4 F [facility] Systolic (mm Hg) 2022-11-27 21:18:41 [facility] Diastolic (mm Hg) 2022-11-27 21:18:41 [facility] Height 2022-11-23 18:35:00 5 [ft_i] [facility] Weight 2022-11-23 18:35:00 [facility] BMI Calculated 2022-11-23 18:35:00 [facility] Temperature Oral (F) 2022-11-21 18:00:00 98.2 F [facility] Height 2022-11-17 14:35:00 5 [ft_i] [facility] BMI Calculated 2022-11-17 14:35:00 [facility] Weight 2022-11-17 14:35:00 [facility] Systolic (mm Hg) 2022-11-17 14:35:00 [facility] Diastolic (mm Hg) 2022-11-17 14:35:00 [facility] Heart Rate 2022-11-17 14:35:00 [facility] Temperature Oral (F) 2022-11-17 14:35:00 97.8 F [facility] Systolic (mm Hg) 2022-10-07 04:00:00 [facility] Diastolic (mm Hg) 2022-10-07 04:00:00 [facility] Respitory Rate 2022-10-07 04:00:00 [facility] Respitory Rate 2022-10-07 02:00:00 [facility] Systolic (mm Hg) 2022-10-07 02:00:00 [facility] Diastolic (mm Hg) 2022-10-07 02:00:00 [facility] Respitory Rate 2022-10-07 00:15:00 [facility] Systolic (mm Hg) 2022-10-07 00:15:00 [facility] Diastolic (mm Hg) 2022-10-07 00:15:00 [facility] Temperature Oral (F) 2022-10-06 23:10:00 97.6 F [facility] Height 2022-10-06 23:06:00 152.4 cm [facility] BMI Calculated 2022-10-06 23:06:00 [facility] Weight 2022-10-06 23:06:00 [facility] Diastolic (mm Hg) 2010-12-12 19:30:00 [facility] Systolic (mm Hg) 2010-12-12 19:30:00 [facility] Diastolic (mm Hg) 2010-12-12 19:15:00 [facility] Systolic (mm Hg) 2010-12-12 19:15:00 [facility] Diastolic (mm Hg) 2010-12-12 19:00:00 [facility] Systolic (mm Hg) 2010-12-12 19:00:00 [facility] Respitory Rate 2010-12-12 19:00:00 [facility] Respitory Rate 2010-12-12 18:45:00 [facility] Respitory Rate 2010-12-12 18:30:00 [facility] Heart Rate 2010-12-12 17:19:00 [facility] Weight 2010-12-09 19:53:00 [facility] Height 2010-12-09 19:53:00 152.4 cm [facility] Weight 2010-12-09 19:51:00 [facility] Height 2010-12-09 19:51:00 152.4 cm [facility] Procedures Procedure Date / Time Performed Performing Clinician Source Debridement, subcutaneous tissue (includes epidermis and dermis, if performed); first 20 sq cm or less 2022-11-18 18:59:00 [facility] ULTRASOUND, UTERUS REAL TIME WITH IMAGE DOCUMENTAITON, TRANSVAGINAL 2022-08-04 00:00:00 [facility] MEDICATION CORRESPONDENCE 2020-01-01 06:01:00 Do ctor Unassigned, Offer[facility] MEDICATION CORRESPONDENCE 2019-10-21 05:01:00 Do ctor Unassigned, Offerle [facility] Colonoscopy 2015-05-28 05:00:00 [facility] Ankle fusion 2007-02-12 00:00:00 [facility] Plan of Care Planned Activity Planned Date Details Comments Source Diagnostic Test Pending 2022-08-04 00:00:00 CBC w/ auto diff [code = CBC w/ auto diff] [facility] Diagnostic Test Pending 2022-08-04 00:00:00 culture, urine [code = culture, urine] [facility] Diagnostic Test Pending 2022-08-04 00:00:00 RPR (rapid plasma reagin), serum [code = RPR (rapid plasma reagin), serum] [facility] Diagnostic Test Pending 2022-08-04 00:00:00 ABO and Rh group panel - Blood [code = 14693-7] [facility] Diagnostic Test Pending 2022-08-04 00:00:00 rubella Ab, titer, serum [code = rubella Ab, titer, serum] [facility] Diagnostic Test Pending 2022-08-04 00:00:00 HBsAg (hepatitis B surface Ag), serum [code = HBsAg (hepatitis B surface Ag), serum] [facility] Diagnostic Test Pending 2022-08-04 00:00:00 Blood group antibody screen [Presence] in Serum or Plasma [code = 890-4] [facility] Diagnostic Test Pending 2022-08-04 00:00:00 drug screen, urine [code = drug screen, urine] [facility] Diagnostic Test Pending 2022-08-04 00:00:00 HIV (1+2) Ab screen, serum [code = HIV (1+2) Ab screen, serum] [facility] Diagnostic Test Pending 2022-08-04 00:00:00 urinalysis, dipstick [code = urinalysis, dipstick] [facility] Diagnostic Test Pending 2022-08-04 00:00:00 test, urine [code = test, urine] [facility] Diagnostic Test Pending 2022-08-04 00:00:00 chromosome 13+18+21+X+Y aneuploidy, blood [code = chromosome 13+18+21+X+Y aneuploidy, blood] [facility] Diagnostic Test Pending 2022-08-04 00:00:00 genetic screen, unspecified specimen [code = genetic screen, unspecified specimen] [facility] Diagnostic Test Pending 2022-08-04 00:00:00 HbA1c (hemoglobin A1c), blood [code = HbA1c (hemoglobin A1c), blood] [facility] Diagnostic Test Pending 2022-08-04 00:00:00 pap, IG + CT/NG/TV + HR HPV + reflex HPV (16+18+45) [code = pap, IG + CT/NG/TV + HR HPV + reflex HPV (16+18+45)] [facility] Instructions [facility] Encounters Start Date/Time End Date/Time Encounter Type Admission Type Attending [facility] Facility Care Department Encounter ID Source 2023-03-06 14:19:28 2023-03-06 14:19:28 Outpatient SFA [facility] [id number] Davis Stephen 2023-02-24 05:22:00 2023-03-01 18:17:00 Inpatient E MANSOOR MAURER MHSE MHSE [id number] [facility] 2023-02-24 04:48:00 2023-03-01 18:17:00 Outpatient Mansoor Maurer Ndubuezkieran MHSE MHSE [id number] 2023-02-20 04:16:00 2023-02-20 05:52:00 Inpatient [facility] [id number] [facility] 2023-02-19 22:23:00 2023-02-19 23:52:00 Inpatient E BALA ROBERTSON MHSE MHSE [id number] [facility] 2023-02-19 22:16:00 2023-02-19 23:52:00 Outpatient Bala Robertson MHSE MHSE [id number] 2023-02-19 09:04:54 2023-02-19 09:04:54 Outpatient SFA [facility] [id number] Davis Stephen 2023-01-19 11:52:06 2023-01-19 11:52:06 Outpatient SFA [facility] [id number] Davis Stephen 2022-12-12 18:01:00 2023-01-11 05:59:00 Wound Care [facility] [id number] [facility] 2022-12-12 13:01:00 2023-01-10 23:59:00 Outpatient Pam GoodePL MHPL [id number] 2022-12-12 13:01:00 2023-01-10 23:59:00 Outpatient PAM GOODEBL MHBL [id number] [facility] 2022-12-26 14:53:43 2022-12-26 14:53:43 Outpatient SFA [facility] [id number] Davis Stephen 2022-12-07 13:00:00 2022-12-07 13:56:32 Office Visit Hitesh Justin [facility] 2 1.2.840.114 350.1.13.58 9.2.7.2.686 [id number] [facility] 2022-12-06 15:19:59 2022-12-06 15:19:59 Outpatient SFA [facility] [id number] Davis Stephen 2022-11-30 13:24:06 2022-11-30 13:24:06 Outpatient SFA [facility] [id number] Davis Stephen 2022-11-29 15:28:06 2022-11-29 15:28:06 Outpatient SFA [facility] [id number] [facility] Fields Master 2022-11-28 17:04:47 2022-11-28 17:04:47 Outpatient SFA [facility] [id number] Davis Fields [place] 2022-11-18 11:40:06 2022-11-27 22:58:00 Inpatient [facility] [id number] Liseth taylor [facility] 2022-11-18 06:40:06 2022-11-27 17:58:00 Outpatient Magnolia Chow MHSE MHSE [id number] 2022-11-18 06:40:00 2022-11-27 17:58:00 Inpatient E MAGNOLIA CHOW MHSE MHSE [id number] [facility] 2022-11-18 13:30:00 2022-11-18 13:30:00 Outpatient HITESH JUSTIN [facility] [id number] [facility] 2022-11-17 14:27:00 2022-11-17 15:30:00 Emergency [facility] [id number] Liseth taylor [facility] 2022-11-17 09:27:00 2022-11-17 10:30:00 Outpatient Davis Dougherty MHPL MHPL [id number] 2022-11-17 09:27:00 2022-11-17 10:30:00 Emergency E DAVIS DOUGHERTY [facility] [id number] BL 2022-10-07 00:00:00 2022-10-07 23:59:00 Outpatient MILENA CASTANON [facility] NATHAN [id number] [facility] 2022-10-06 23:04:00 2022-10-07 04:30:00 Emergency [facility] [id number] [facility] 2022-10-06 18:04:00 2022-10-06 23:30:00 Outpatient ZulmaDianne gonzalezsiah [facility] [id number] 2022-10-06 18:04:00 2022-10-06 23:30:00 Outpatient ZulmaDianne gonzalez All [facility] [id number] 2022-10-06 17:50:00 2022-10-06 23:30:00 Emergency DIANNE SZYMANSKI [facility] [id number] [facility] 2022-09-04 00:00:00 2022-09-04 00:00:00 Outpatient White_M MMG [place] [id number] [facility] 2022-09-04 00:00:00 2022-09-04 00:00:00 Outpatient White_M MMG MMG [id number] [facility] 2022-08-18 00:00:00 2022-08-18 00:00:00 Outpatient White_M MMG MMG [id number] [facility] 2022-08-14 03:00:00 2022-08-14 08:19:00 Emergency EM JaimeEstefany HCACL DUTCH [id number] [facility] 2022-08-05 00:00:00 2022-08-05 00:00:00 Outpatient GC_GCFRWD_S [facility] [id number] [facility] 2022-08-04 00:00:00 2022-08-04 00:00:00 Outpatient White_M MMG MMG [id number] [facility] 2022-08-04 00:00:00 2022-08-04 00:00:00 KAMRAN Arceo-BC: [address], [address], [place] [address] , Ph. [phone] MMG [place] [facility] [id number] [facility] 2022-07-18 00:00:00 2022-07-18 00:00:00 Outpatient White_M MMG MMG [id number] [facility] 2022-07-12 00:00:00 2022-07-12 00:00:00 Outpatient White_M MMG MMG [id number] [facility] 2020-11-02 13:00:00 2020-11-02 13:00:00 Outpatient WILFRIDO CABALLERO [facility] [id number] [facility] 2020-10-25 00:00:00 2020-10-25 00:00:00 Wilfrido Orlando [facility] Jayme?Jamel [facility] Building 1..840.114 350.1.13.10 4.2.7.2.686 [id number] [facility] 2020-09-27 00:00:00 2020-09-27 00:00:00 Victor Manuel Ho [facility] Office Building One ..840.114 350.1.13.10 4.2.7.2.686 [id number] [facility] 2020-08-25 00:00:00 2020-08-25 00:00:00 Victor Manuel Ho [facility] Office Building One ..840.114 350.1.13.10 4.2.7.2.686 [id number] [facility] 2020-07-26 00:00:00 2020-07-26 00:00:00 Refill Wilfrido Ho [facility] Office Building One 1..114 350.1.13.10 4.2.7.2.686 [id number] [facility] 2020-07-20 13:08:54 2020-07-20 13:23:54 Office Visit Wilfrido Ho [facility] Building One 1.114 350.1.13.10 4.2.7.2.686 [id number] [facility] 2020-07-20 13:00:00 2020-07-20 13:00:00 Outpatient R GEORGIAWILFRIDO [facility] [id number] [facility] 2020-06-24 00:00:00 2020-06-24 00:00:00 Refill Wilfrido Ho [facility] Building One 1.114 350.1.13.10 4.2.7.2.686 [id number] [facility] 2020-05-26 00:00:00 2020-05-26 00:00:00 Refill Wilfrido Ho [facility] Building One .114 350.1.13.10 4.2.7.2.686 [id number] [facility] 2020-05-04 00:00:00 2020-05-04 00:00:00 Patient Outreach Tyrone Vazquez [facility] 1..114 350.1.13.10 4.2.7.2.686 [id number] [facility] 2020-04-23 00:00:00 2020-04-23 00:00:00 Telephone Wilfrido Ho [facility] Building One 1.2.840.114 350.1.13.10 4.2.7.2.686 [id number] [facility] 2020-03-23 15:00:00 2020-03-23 15:00:00 Outpatient R [place] WILFRIDO [facility] [id number] [facility] 2020-02-23 00:00:00 2020-02-23 00:00:00 Refjeanie LachoboonemalloryWilfrido [facility] Office Building One 1..114 350.1.13.10 4.2.7.2.686 [id number] [facility] 2020-01-22 00:00:00 2020-01-22 00:00:00 Refjeanie [place] [facility] Office Building One 1.114 350.1.13.10 4.2.7.2.686 [id number] [facility] 2020-01-01 00:00:00 2020-01-01 00:00:00 Orders Only Doctor Unassigned, Offerle [facility] 1..114 350.1.13.10 4.2.7.2.686 [id number] [facility] 2019-12-23 00:00:00 2019-12-23 00:00:00 Wilfrido Rajput [facility] Office Building One 1..114 350.1.13.10 4.2.7.2.686 [id number] [facility] 2019-11-24 00:00:00 2019-11-24 00:00:00 Refjeanie [facility] Building One 1..114 350.1.13.10 4.2.7.2.686 [id number] [facility] 2019-11-20 00:00:00 2019-11-20 00:00:00 Telephone Wilfrido Ho [facility] Building One 1..114 350.1.13.10 4.2.7.2.686 [id number] [id number] [facility] 2019-11-19 16:20:18 2019-11-19 16:35:18 Telemedici ne Visit [place] [facility] Office Building One 1..114 350.1.13.10 4.2.7.2.686 [id number] [facility] 2019-11-19 16:00:00 2019-11-19 16:00:00 Outpatient R [place] WILFRIDO [facility] [id number] [facility] 2019-11-17 00:00:00 2019-11-17 00:00:00 Refill [place] [facility] Office Building One 1..114 350.1.13.10 4.2.7.2.686 [id number] [facility] 2019-10-21 00:00:00 2019-10-21 00:00:00 Orders Only Doctor Unassigned, Offerle [facility] 1.0.114 350.1.13.10 4.2.7.2.686 [id number] [facility] 2019-10-17 00:00:00 2019-10-17 00:00:00 Telephone Wilfrido Ho [facility] Building One 1..114 350.1.13.10 4.2.7.2.686 [id number] [facility] 2019-10-16 00:00:00 2019-10-16 00:00:00 Telephone Wilfrido Ho [facility] Building One 1..114 350.1.13.10 4.2.7.2.686 [id number] [facility] 2019-10-14 00:00:00 2019-10-14 00:00:00 Victor Manuel [facility] Office Building One .840.114 350.1.13.10 4.2.7.2.686 [id number] [facility] 2019-08-28 09:30:00 2019-08-28 09:30:00 Outpatient Abby HO [facility] [id number] [facility] 2019-08-21 00:00:00 2019-08-21 00:00:00 Victor Manuel Ho [facility] Office Building One 1.840.114 350.1.13.10 4.2.7.2.686 [id number] [facility] 2019-08-18 13:00:00 2019-08-18 13:00:00 Outpatient Abby ISLAS SULTANA [facility] [id number] [facility] 2019-07-23 00:00:00 2019-07-23 00:00:00 Victor Manuel Ho [facility] Office Building One .840.114 350.1.13.10 4.2.7.2.686 [id number] [facility] 2019-07-08 13:00:00 2019-07-08 13:00:00 [facility] [id number] [facility] 2019-06-24 00:00:00 2019-06-24 00:00:00 Refjeanie Ho [facility] Office Building One .840.114 350.1.13.10 4.2.7.2.686 [id number] [facility] 2019-05-26 10:00:00 2019-05-26 10:00:00 Outpatient R JOLENEKA, WILFRIDO [facility] [id number] [facility] 2019-05-26 07:49:13 2019-05-26 08:04:13 Telemedici ne Visit Wilfrido Ho [facility] Building 1.2.840.114 350.1.13.10 4.2.7.2.686 [id number] [facility] 2019-04-24 00:00:00 2019-04-24 00:00:00 Victor Manuel Ho [facility] Office Building One 1.2.840.114 350.1.13.10 4.2.7.2.686 [id number] [facility] 2019-03-26 00:00:00 2019-03-26 00:00:00 Victor Manuel Ho [facility] Office Building One 1.2.840.114 350.1.13.10 4.2.7.2.686 [id number] [facility] 2018-10-25 00:00:00 2018-10-25 00:00:00 Victor Manuel Ho [facility] Office Building One 1.2.840.114 350.1.13.10 4.2.7.2.686 [id number] [facility] 2018-09-26 00:00:00 2018-09-26 00:00:00 Victor Manuel Ho [facility] Building One 1.2.840.114 350.1.13.10 4.2.7.2.686 [id number] [facility] 2016-03-07 11:15:00 2016-03-07 11:15:00 Outpatient MHIE MHIE [id number] Liseth Reyes 2016-03-07 11:15:00 2016-03-07 11:15:00 Outpatient MHIE MHIE [id number] Liseth Finnann 2015-11-15 16:15:00 2015-11-15 16:15:00 Outpatient MHIE MHIE [id number] Liseth Finnann 2015-11-15 16:15:00 2015-11-15 16:15:00 Outpatient MHIE MHIE [id number] Liseth Finnann 2015-07-27 20:51:00 2015-07-28 04:59:00 Outpt Diag Services nullFlavo r [facility] [place] [id number] Liseth Reyes 2015-07-27 20:51:00 2015-07-28 04:59:00 Outpt Diag Services nullFlavo r [facility] [place] [id number] Liseth Finnann 2015-07-27 15:51:00 2015-07-27 23:59:00 Outpatient 2.16.840. [id number] 3.615.24 2.16.840.1. [id number] 2015-07-26 15:30:00 2015-07-26 15:30:00 Outpatient MHIE MHIE [id number] Liseth taylor Eric 2015-07-26 15:30:00 2015-07-26 15:30:00 Outpatient MHIE MHIE [id number] Liseth taylor Eric 2015-05-04 10:00:00 2015-05-04 10:00:00 Outpatient MHIE MHIE [id number] Liseth taylor Eric 2015-05-04 10:00:00 2015-05-04 10:00:00 Outpatient MHIE MHIE [id number] Liseth taylor Eric 2010-12-12 11:09:00 2010-12-12 15:05:00 DS nullFlavo r [facility] [id number] Maggioria claudia Eric 2010-12-12 11:09:00 2010-12-12 15:05:00 DS nullFlavo r [facility] [id number] Liseth taylor Eric Results Test Description Test Time Test Comments Results Result Co mments Source [facility] [id number] 04:28:00* Test Item Value Reference Range Interpretation Comme nts Antibody Scrn (test code = Antibody Scrn) Negative (02/19/23 10:28 PM) [facility] [id number] 04:28:00* Test Item Value Reference Range Interpretation Comme nts Rhig Reqd (test code = Rhig Reqd) See Note 1(02/19/23 10:28 PM) [facility]KbnkpuvLQVCBBTBK3539-53-08 04:28:00* Test Item Value Reference Range Interpretation Comme nts Glucose Lvl (test code = Glucose Lvl) 71 70-99 [facility]icsJzlrdcoSCNTJPBQW0416-30-83 04:28:00* Test Item Value Reference Range Interpretation Comme nts BUN (test code = BUN) 8 7-22 [facility]icsYyppfvaPFPMGHTPN5578-89-05 04:28:00* Test Item Value Reference Range Interpretation Comme nts Creatinine Lvl (test code = Creatinine Lvl) 0.53 0.50-1.40 [facility]icsCdqmrfrPGRXZTJLQ5865-23-32 04:28:00* Test Item Value Reference Range Interpretation Comme nts Sodium Lvl (test code = Sodium Lvl) 137 135-145 [facility]icsRvthlcjGCOYJBTMM1022-75-47 04:28:00* Test Item Value Reference Range Interpretation Comme nts Potassium Lvl (test code = P otassium Lvl) 3.4 3.5-5.1 [facility]icsNrrwkykQICOYQJJP8870-36-39 04:28:00* Test Item Value Reference Range Interpretation Comme nts Chloride Lvl (test code = Chloride Lvl) 107 95-109 [facility]icsKxesnlqPCQKDXUZJ0304-80-92 04:28:00* Test Item Value Reference Range Interpretation Comme nts CO2 (test code = CO2) 25 24-32 [facility] ClinicsGdykofsMOXASTCPV2943-95-33 04:28:00* Test Item Value Reference Range Interpretation Comme nts Calcium Lvl (test code = Calcium Lvl) 8.7 8.5-10.5 [facility]icsNvwbkkuKEHQVTMUG0690-93-97 04:28:00* Test Item Value Reference Range Interpretation Comme nts Total Protein (test code = T otal Protein) 7.4 6.4-8.4 [facility]icsQnjtuujRIEQIFHSS6508-82-51 04:28:00* Test Item Value Reference Range Interpretation Comme nts Albumin Lvl (test code = Albumin Lvl) 2.8 3.5-5.0 [facility]icsUrjksckFHTKVNGFY0877-16-93 04:28:00* Test Item Value Reference Range Interpretation Comme nts ALT (test code = ALT) 33 <=65 [facility]icsFcpbkdnUVFPYVGCU9618-75-06 04:28:00* Test Item Value Reference Range Interpretation Comme nts AST (test code = AST) 31 <=37 [facility]icsJujuknnGMQYTJXGQ8449-37-24 04:28:00* Test Item Value Reference Range Interpretation Comme nts Alk Phos (test code = Alk Phos) 360 39-136 [facility] ClinicsZafjkpuGUWSGOTWO8696-02-79 04:28:00* Test Item Value Reference Range Interpretation Comme nts Bili Total (test code = Bili Total) 0.3 0.2-1.3 [facility]icsCdwpsqnMUPEXPMBG3288-20-13 04:28:00* Test Item Value Reference Range Interpretation Comme nts AGAP (test code = AGAP) 8.4 10.0-20.0 [facility]icsAdnbasbOJQJMAPBX2953-18-15 04:28:00* Test Item Value Reference Range Interpretation Comme nts B/C Ratio (test code = B/C Ratio) 15 1 6-25 [facility]icsXswoouvVCUCJNKPX4901-02-87 04:28:00* Test Item Value Reference Range Interpretation Comme nts Globulin (test code = Globulin) 4.6 2.7-4.2 [facility]icsCvpecybAIKZSCUMC8891-85-67 04:28:00* Test Item Value Reference Range Interpretation Comme nts A/G Ratio (test code = A/G Ratio) 0.6 1 0.7-1.6 [facility]icsRwrbhtcYBNWJLWLV6109-73-77 04:28:00* Test Item Value Reference Range Interpretation Comme nts eGFR (test code = eGFR) 124 [facility]icsKsnxsymUHHHUJPSJ1642-51-97 04:28:00* Test Item Value Reference Range Interpretation Comme nts U Creatinine (test code = U Creatinine) 158.00 [facility] ClinicsYhuugicQISOACAQS6723-97-51 04:28:00* Test Item Value Reference Range Interpretation Comme nts U Protein (test code = U Protein) 118.0 [facility]icsKnwodmdXAWNHPJYI0271-19-19 04:28:00* Test Item Value Reference Range Interpretation Comme nts U Prot/Creat (test code = U Prot/Creat) 0.75 1 [facility]icsMpolzznWSVIXVITZ8994-56-65 04:28:00* Test Item Value Reference Range Interpretation Comme nts U Amph Scr (test code = U Amph Scr) Positive *ABN*(02/19/23 10:28 PM) [facility]icsImbpkofJGLJBZKKZ7680-77-89 04:28:00* Test Item Value Reference Range Interpretation Comme nts U Alesia Scr (test code = U Alesia Scr) Negative *NA*(02/19/23 10:28 PM) [facility]icsYztcwirYHNFMUVET4352-83-53 04:28:00* Test Item Value Reference Range Interpretation Comme nts U Benzodiaz Scr (test code = U Benzodiaz Scr) Negative *NA*(02/19/23 10:28 PM) [facility]icsEoijzveLGXGRZGTX9201-76-89 04:28:00* Test Item Value Reference Range Interpretation Comme nts U Cocaine Scr (test code = U Cocaine Scr) Negative *NA*(02/19/23 10:28 PM) [id number] 04:28:00* Test Item Value Reference Range Interpretation Comme nts U Cannab Scr (test code = U Cannab Scr) Negative *NA*(02/19/23 10:28 PM) [id number] 04:28:00* Test Item Value Reference Range Interpretation Comme nts U Opiate Scr (test code = U Opiate Scr) Negative *NA*(02/19/23 10:28 PM) [id number] 04:28:00* Test Item Value Reference Range Interpretation Comme nts U Phencyclidine Scr (test code = U Phencyclidine Scr) Negative *NA*(02/19/23 10:28 PM) [id number] 04:28:00* Test Item Value Reference Range Interpretation Comme nts UDS Note (test code = UDS Note) See Note 4(02/19/23 10:28 PM) [id number] 04:28:00* Test Item Value Reference Range Interpretation Comme nts WBC (test code = WBC) 11.3 3.7-10.4 [facility] [id number] 04:28:00* Test Item Value Reference Range Interpretation Comme nts RBC (test code = RBC) 5.15 4.20-5.40 [facility] [id number] 04:28:00* Test Item Value Reference Range Interpretation Comme nts Hgb (test code = Hgb) 15.2 12.0-16.0 [facility] SpringsCglldkkLPBEUUHHET2127-01-46 04:28:00* Test Item Value Reference Range Interpretation Comme nts Hct (test code = Hct) 45.1 36.0-48.0 [facility] SpringsBnlprgeBMWGPMYNAE5245-83-02 04:28:00* Test Item Value Reference Range Interpretation Comme nts MCV (test code = MCV) 87.5 80.0-98.0 [facility] SpringsZxgwcegBJCXMSNQOX6540-13-70 04:28:00* Test Item Value Reference Range Interpretation Comme nts MCH (test code = MCH) 29.5 pg 27.0-31.0 [facility] SpringsFcpjyoxMYTRMRETDK7902-96-53 04:28:00* Test Item Value Reference Range Interpretation Comme nts MCHC (test code = MCHC) 33.7 32.0-36.0 [facility] SpringsHyxzqvjAAGHEDCNKK3026-94-19 04:28:00* Test Item Value Reference Range Interpretation Comme nts RDW (test code = RDW) 15.9 11.5-14.5 [facility] SpringsLillapmAUPHHUWMFZ9703-77-18 04:28:00* Test Item Value Reference Range Interpretation Comme nts Platelet (test code = Platelet) 240 133-450 [facility] SpringsZxzwoscAMDAVXOYTZ0050-62-91 04:28:00* Test Item Value Reference Range Interpretation Comme nts MPV (test code = MPV) 9.5 7.4-10.4 [facility] SpringsUpgyrkbIAEMCTTSHG4011-47-51 04:28:00* Test Item Value Reference Range Interpretation Comme nts Segs (test code = Segs) 58.7 45.0-75.0 [facility] SpringsMgucvtlRIKBXCQZYN3729-70-35 04:28:00* Test Item Value Reference Range Interpretation Comme nts Lymphocytes (test code = Lymphocytes) 32.3 20.0-40.0 [facility] SpringsIvdauqtQHYSJWSKQT1707-99-25 04:28:00* Test Item Value Reference Range Interpretation Comme nts Monocytes (test code = Monocytes) 6.8 2.0-12.0 [facility] SpringsOjpufubATMDCBEFFF8719-78-05 04:28:00* Test Item Value Reference Range Interpretation Comme nts Eosinophils (test code = Eosinophils) 1.1 <=4.0 [facility] SpringsOzmmwlzPCHMIAYHXL6029-50-30 04:28:00* Test Item Value Reference Range Interpretation Comme nts Basophils (test code = Basophils) 1.1 <=1.0 [facility] SpringsCkgzisjONGJKWDVYO0940-58-75 04:28:00* Test Item Value Reference Range Interpretation Comme nts Neutrophils # (test code = N eutrophils #) 6.6 1.5-8.1 [facility] SpringsIzzsmlxFIUSXQZWTK3846-47-00 04:28:00* Test Item Value Reference Range Interpretation Comme nts Lymphocytes # (test code = L ymphocytes #) 3.7 1.0-5.5 [facility] SpringsKshklkmFNKRYYTLTS0208-05-75 04:28:00* Test Item Value Reference Range Interpretation Comme nts Monocytes # (test code = Monocytes #) 0.8 <=0.8 [facility] SpringsDtyhnjjTYPNTZZQZO5921-52-05 04:28:00* Test Item Value Reference Range Interpretation Comme nts Eosinophils # (test code = E osinophils #) 0.1 <=0.5 [facility] SpringsWqlwaapDWYDSZXAKO7197-25-77 04:28:00* Test Item Value Reference Range Interpretation Comme nts Basophils # (test code = Basophils #) 0.1 <=0.2 [facility] WorthXtchmdmFXTPGJMVOS7874-20-73 04:28:00* Test Item Value Reference Range Interpretation Comme nts Hep Bs Ag (test code = Hep Bs Ag) Negative *NA*(02/19/23 10:28 PM) [facility] WorthGxpribjHUOLMRCMSQ1212-71-23 04:28:00* Test Item Value Reference Range Interpretation Comme nts HIV Ag/Ab 4th Gen (test code = HIV Ag/Ab 4th Gen) Negative 2*NA*(02/19/23 10:28 PM) [facility] WorthHuvjmruZKMMVHWNYA1593-89-92 04:28:00* Test Item Value Reference Range Interpretation Comme nts Treponemal Ab (test code = Treponemal Ab) Non-Reactive *NA*(02/19/23 10:28 PM) [facility] WorthFwnjnlyVCGOIRLFKO1973-82-85 04:28:00* Test Item Value Reference Range Interpretation Comme nts Rubella IgG (test code = Rubella IgG) 32.3 [facility]annAMPHETAMINES, QUANT, [id number] 18:15:24* Test Item Value Reference Range Interpretation Comments AMPHETAMINE INTERP (test code = 02542) Positive A AMPHETAMINE QNT (test code = 32485) >5000 ng/mL <100 H METHAMPHETAMINE INTERP (test code = 20952) Positive A METHAMPHETAMINE QNT (test code = 21400) >5000 ng/mL <100 H MDA INTERP (test code = 27544) Negative MDA QNT (test code = 93015) <50 ng/mL <100 MDMA INTERP (test code = 556765) Negative MDMA QNT (test code = 163647) <50 ng/mL <100 Reference range indicates cutoff for positive result determination.Limit of detection and quantitation (LOD/Q) thresholds may be lowerthan positive cutoff. Results detected above LOD/Q but below cutoffare interpreted as Below Cutoff. Specimen Type: Urine Urine drug and metabolite concentrations are dependent on manyfactors, including patient compliance, drug dosing, dosing interval,individual variation in drug absorption and metabolism, urineconcentration, and limitations of testing. Assay is intended formedical purposes only, not for forensic use. This test was developed and its performance characteristicsdetermined by [facility] ([facility]). It has not beencleared or approved by the U.S. Food and Drug Administration (FDA).The FDA has determined that such clearance or approval is notnecessary. This test is used for clinical purposes and should not beregarded as investigational or for research. [facility] is qualified toperform high complexity testing under the Clinical LaboratoryImprovement Amendments (CLIA). TESTING PERFORMED AT [facility] [address] [place] [address], [address], [place] [id number] CLIA NO: [id number] THC METABOLITE, QUANT, [id number] 18:15:24* Test Item Value Reference Range Interpretation Comme nts CARBOXY-THC INTERP (test code = 44364) Positive A CARBOXY-THC QNT (test code = 33552) 39 ng/mL <15 H Reference range indicates cutoff for positive result determination. Specimen Type: Urine Urine drug and metabolite concentrations are dependent on manyfactors, including patient compliance, drug dosing, dosing interval,individual variation in drug absorption and metabolism, urineconcentration, and limitations of testing. Assay is intended formedical purposes only, not for forensic use. This test was developed and its performance characteristicsdetermined by [facility] ([facility]). It has not beencleared or approved by the U.S. Food and Drug Administration (FDA).The FDA has determined that such clearance or approval is notnecessary. This test is used for clinical purposes and should not beregarded as investigational or for research. [facility] is qualified toperform high complexity testing under the Clinical LaboratoryImprovement Amendments (CLIA). TESTING PERFORMED AT [facility] [address] [place] [address], [address], [address] [address] CLIA NO: [id number] UNLESS OTHERWISE INDICATED, ALL TESTING PERFORMED AT [facility] [address] [place] [address] TELEGRAPH REPEATER TECHNICIAN: JENN MONTOYA M.D. CLIA NUMBER [id number] [place]. [id number] CULTURE, [id number] 14:01:32SPECIMEN NUMBER: [id number] CULTURE, URINE SPECIMEN NUMBER: [id number] SPECIMEN COMMENT: URINE SOURCE: URINE REPORT STATUS: FINAL ISOLATE NUMBER 1: ORGANISM: 01/21/2023 50-100,000 CFU/ML YEAST ADDITIONAL OBSERVATIONS: 01/21/2023 50-100,000 CFU/ML UROGENITAL KEVIN PRESENT NO COMMON PATHOGENSDRUG ABUSE SCREEN 10 REFLEX [id number] 06:56:43* Test Item Value Reference Range Interpretation Comments AMPHETAMINES (test code = 3201) SEE REFLEX TESTING NEGATIVE A BARBITURATES (test code = 3202) NEGATIVE NEGATIVE BENZODIAZEPINES (test code = 3203) NEGATIVE NEGATIVE CANNABINOIDS (test code = 3204) SEE REFLEX TESTING NEGATIVE A COCAINE METABOLITE (test code = 3205) NEGATIVE NEGATIVE OPIATES (test code = 3209) NEGATIVE NEGATIVE OXYCODONE (test code = 92369) NEGATIVE NEGATIVE PHENCYCLIDINE (test code = 3210) NEGATIVE NEGATIVE METHADONE (test code = 3207) NEGATIVE NEGATIVE BUPRENORPHINE (test code = 33652) NEGATIVE NEGATIVE SOURCE (test code = 950478) URINE SEE BELOW FO R THRESHOLDS AND IMPORTANT METHOD NOTES ANALYTE SCREENING CUTOFF CONFIRMATORY CUTOFF ___AMPHETAMINES 500 NG/ML 100 NG/MLBARBITURATES 200 NG/ML 100 NG/MLBENZODIAZEPINES 200 NG/ML 100 NG/MLCANNABINOIDS (THC) 20 NG/ML 15 NG/MLCOCAINE METABOLITES 150 NG/ML 100 NG/MLOPIATE METABOLITES 300 NG/ML 100 NG/MLOXYCODONE 100 NG/ML 100 NG/MLPHENCYCLIDINE (PCP) 25 NG/ML 25 NG/MLMETHADONE 300 NG/ML 100 NG/MLBUPRENORPHINE 5 NG/ML 5 NG/ML NOTE: Screening methodology is qualitative Enzyme Immunoassay.The screening method may be less sensitive for certain medicationsincluding clonazepam and lorazepam in the benzodiazepine assay andtramadol or fentanyl in the opiate assay, amongst others. Patientcompliance, hydration status, timing and dose of medications, drugabsorption and specimen quality may affect screening assay.For clinical discrepancies, consider directed testing for specificcompounds or contact the laboratory within specimen stability [facility] for confirmatory testing. This test is specified for medicalpurposes only. It is not valid for forensic use. [id number] 13:04:00* Test Item Value Reference Range Interpretation Comme nts Magnesium Lvl (test code = M agnesium Lvl) 1.6 1.8-2.4 [facility] CenterWiwaokzNBJVZNGZV9352-81-29 13:04:00* Test Item Value Reference Range Interpretation Comme nts Magnesium Lvl (test code = M agnesium Lvl) 1.6 1.8-2.4 [facility]QpuwvmbGIOVOZRAM9362-73-98 13:04:00* Test Item Value Reference Range Interpretation Comme nts Magnesium Lvl (test code = M agnesium Lvl) 1.6 1.8-2.4 [facility] HospitalEpugaasCGXFEZODD4588-35-23 13:04:00* Test Item Value Reference Range Interpretation Comme nts Magnesium Lvl (test code = M agnesium Lvl) 1.6 1.8-2.4 [facility] CenterGyuywflSYNVZPCTY2493-23-55 12:20:00* Test Item Value Reference Range Interpretation Comme nts Glucose Lvl (test code = Glucose Lvl) 91 70-99 [facility]icsVxrcoucBCERDTDPW8906-90-73 12:20:00* Test Item Value Reference Range Interpretation Comme nts BUN (test code = BUN) 8 - [facility]icsJlnibjxLLRBRJXHX8999-46-27 12:20:00* Test Item Value Reference Range Interpretation Comme nts Creatinine Lvl (test code = Creatinine Lvl) 0.41 0.50-1.40 [facility]icsUqmekywTXTYQOTZX4542-06-35 12:20:00* Test Item Value Reference Range Interpretation Comme nts Glucose Lvl (test code = Glucose Lvl) 91 70-99 [facility]icsAffvcwzXYWIRGJZH4056-04-87 12:20:00* Test Item Value Reference Range Interpretation Comme nts Sodium Lvl (test code = Sodium Lvl) 135 135-145 [facility]icsYcadvriEHRTZCFYR0146-09-66 12:20:00* Test Item Value Reference Range Interpretation Comme nts BUN (test code = BUN) 8 09-02 [facility]icsSukfxusFHAECUXSR2618-33-53 12:20:00* Test Item Value Reference Range Interpretation Comme nts Creatinine Lvl (test code = Creatinine Lvl) 0.41 0.50-1.40 [facility]icsIzwxzyzGHXIWNXMN7359-41-63 12:20:00* Test Item Value Reference Range Interpretation Comme nts Sodium Lvl (test code = Sodium Lvl) 135 135-145 [facility]icsKsrskfqBYCZAXZWE8274-97-53 12:20:00* Test Item Value Reference Range Interpretation Comme nts Potassium Lvl (test code = P otassium Lvl) 4.2 3.5-5.1 [facility]icsWwqxjnmHYCZGIRRD6495-08-04 12:20:00* Test Item Value Reference Range Interpretation Comme nts Chloride Lvl (test code = Chloride Lvl) 105 95-109 [facility]icsGsvcupwAJVQQRHBU4831-16-52 12:20:00* Test Item Value Reference Range Interpretation Comme nts CO2 (test code = CO2) 27 24-32 [facility]icsHsryymmYRXCWERQA3482-41-67 12:20:00* Test Item Value Reference Range Interpretation Comme nts Calcium Lvl (test code = Calcium Lvl) 8.6 8.5-10.5 [facility]icsHezkzyqDGGLPSUQQ1721-03-92 12:20:00* Test Item Value Reference Range Interpretation Comme nts AGAP (test code = AGAP) 7.2 10.0-20.0 [facility]icsWxszxggUASFTLCGP8085-03-25 12:20:00* Test Item Value Reference Range Interpretation Comme nts eGFR (test code = eGFR) 132 [facility] SpringsKzpbtuzPLUAXSIVUQ6090-97-71 12:20:00* Test Item Value Reference Range Interpretation Comme nts Segs (test code = Segs) 64.9 45.0-75.0 [facility]icsHkocrjxXLBQWEGOQ1175-95-09 12:20:00* Test Item Value Reference Range Interpretation Comme nts Potassium Lvl (test code = P otassium Lvl) 4.2 3.5-5.1 [facility] SpringsWbecrnoKROPEFFWAI6111-99-13 12:20:00* Test Item Value Reference Range Interpretation Comme nts Lymphocytes (test code = Lymphocytes) 20.3 20.0-40.0 [facility] SpringsVsruujzBJSMWUNQYX0899-29-90 12:20:00* Test Item Value Reference Range Interpretation Comme nts Monocytes (test code = Monocytes) 11.2 2.0-12.0 [facility] SpringsYfedfhzRFXHOKMBIP8594-74-65 12:20:00* Test Item Value Reference Range Interpretation Comme nts Eosinophils (test code = Eosinophils) 3.2 <=4.0 [facility] SpringsLazqnbxNVQBNNNAYK4823-54-05 12:20:00* Test Item Value Reference Range Interpretation Comme nts Basophils (test code = Basophils) 0.4 <=1.0 [facility] SpringsRwoygmlFEZLSBPNNH9124-26-53 12:20:00* Test Item Value Reference Range Interpretation Comme nts Neutrophils # (test code = N eutrophils #) 6.5 1.5-8.1 [facility] SpringsBhawopoONJHCFVRDV9193-65-16 12:20:00* Test Item Value Reference Range Interpretation Comme nts Lymphocytes # (test code = L ymphocytes #) 2.0 1.0-5.5 [facility] SpringsEyvptdgPGCMNEWFHN1628-95-13 12:20:00* Test Item Value Reference Range Interpretation Comme nts Monocytes # (test code = Monocytes #) 1.1 <=0.8 [facility] SpringsSyjugfqHHCQIVQBMY2398-36-29 12:20:00* Test Item Value Reference Range Interpretation Comme nts Eosinophils # (test code = E osinophils #) 0.3 <=0.5 [facility] SpringsHkzhnqyPUMFGKTNOG5368-71-89 12:20:00* Test Item Value Reference Range Interpretation Comme nts WBC (test code = WBC) 10.1 3.7-10.4 [facility] SpringsGaskqslQXMWQBDIIC0153-38-32 12:20:00* Test Item Value Reference Range Interpretation Comme nts RBC (test code = RBC) 3.89 4.20-5.40 [facility]icsOdqduizCHPQZSVKF6425-41-77 12:20:00* Test Item Value Reference Range Interpretation Comme nts Chloride Lvl (test code = Chloride Lvl) 105 95-109 [facility] SpringsLorolnrRVMSBOCVGU7124-41-32 12:20:00* Test Item Value Reference Range Interpretation Comme nts Hgb (test code = Hgb) 12.0 12.0-16.0 [facility] SpringsGcdnvezHLSOWBOJWG5402-15-60 12:20:00* Test Item Value Reference Range Interpretation Comme nts Hct (test code = Hct) 33.5 36.0-48.0 [facility] SpringsXbyoqfaODYOOGCABH3409-19-15 12:20:00* Test Item Value Reference Range Interpretation Comme nts MCV (test code = MCV) 86.2 80.0-98.0 [facility] SpringsFsxslspCBDOISWSWI0411-04-04 12:20:00* Test Item Value Reference Range Interpretation Comme nts MCH (test code = MCH) 30.9 pg 27.0-31.0 [facility] SpringsVbjpbhaBRAKAAGFLP6228-27-17 12:20:00* Test Item Value Reference Range Interpretation Comme nts MCHC (test code = MCHC) 35.9 32.0-36.0 [facility] SpringsQgjhqvwEDKFZXWEFN4076-27-80 12:20:00* Test Item Value Reference Range Interpretation Comme nts RDW (test code = RDW) 13.2 11.5-14.5 [facility] SpringsSuhsvxhGAIMAZDAHL5884-95-18 12:20:00* Test Item Value Reference Range Interpretation Comme nts Platelet (test code = Platelet) 229 133-450 [facility] SpringsSqcxyfhCAVYGEVOOH1070-87-07 12:20:00* Test Item Value Reference Range Interpretation Comme nts MPV (test code = MPV) 8.2 7.4-10.4 [facility]icsNoyfbdlBZGZXBTCJ6499-86-01 12:20:00* Test Item Value Reference Range Interpretation Comme nts CO2 (test code = CO2) 27 24-32 [facility]icsMxkvamzHLMSFVKBX6633-51-19 12:20:00* Test Item Value Reference Range Interpretation Comme nts Calcium Lvl (test code = Calcium Lvl) 8.6 8.5-10.5 [facility]icsJfwjgpdXAVSFHZIT0747-98-51 12:20:00* Test Item Value Reference Range Interpretation Comme nts AGAP (test code = AGAP) 7.2 10.0-20.0 [facility]icsBwvrxpqHUNKUAERR7719-15-93 12:20:00* Test Item Value Reference Range Interpretation Comme nts eGFR (test code = eGFR) 132 [facility] SpringsGqcriqsIIGRFJDAAR2335-27-93 12:20:00* Test Item Value Reference Range Interpretation Comme nts Segs (test code = Segs) 64.9 45.0-75.0 [facility] SpringsQkbrugtQHMNXDELLT0589-71-10 12:20:00* Test Item Value Reference Range Interpretation Comme nts Lymphocytes (test code = Lymphocytes) 20.3 20.0-40.0 [facility] SpringsDzhjsybFOAIVKEBHK0345-21-17 12:20:00* Test Item Value Reference Range Interpretation Comme nts Monocytes (test code = Monocytes) 11.2 2.0-12.0 [facility] SpringsZgelqurXHCSMAVFEM8311-65-59 12:20:00* Test Item Value Reference Range Interpretation Comme nts Eosinophils (test code = Eosinophils) 3.2 <=4.0 [facility] SpringsEsygdanADWDVFJRRT5637-35-63 12:20:00* Test Item Value Reference Range Interpretation Comme nts Basophils (test code = Basophils) 0.4 <=1.0 [facility] SpringsMtqmstyQKJZEVQTJY5094-20-14 12:20:00* Test Item Value Reference Range Interpretation Comme nts Neutrophils # (test code = N eutrophils #) 6.5 1.5-8.1 [facility] SpringsTefcejiDEYVZHNGJX1791-21-77 12:20:00* Test Item Value Reference Range Interpretation Comme nts Lymphocytes # (test code = L ymphocytes #) 2.0 1.0-5.5 [facility] SpringsUcwodhrPXOPMBZNFQ8327-75-10 12:20:00* Test Item Value Reference Range Interpretation Comme nts Monocytes # (test code = Monocytes #) 1.1 <=0.8 [facility] SpringsIjqmnesAVSVNNBREH0092-85-42 12:20:00* Test Item Value Reference Range Interpretation Comme nts Eosinophils # (test code = E osinophils #) 0.3 <=0.5 [facility] SpringsBrzopckAVCLDMARYR3354-55-28 12:20:00* Test Item Value Reference Range Interpretation Comme nts WBC (test code = WBC) 10.1 3.7-10.4 [facility] SpringsHoxdyzcBDCKHYTPFQ8375-66-61 12:20:00* Test Item Value Reference Range Interpretation Comme nts RBC (test code = RBC) 3.89 4.20-5.40 [facility] SpringsDwrfgykUBMDKWKMGN5251-89-00 12:20:00* Test Item Value Reference Range Interpretation Comme nts Hgb (test code = Hgb) 12.0 12.0-16.0 [facility] SpringsUntkyfzGHQKMUGGNP4816-94-82 12:20:00* Test Item Value Reference Range Interpretation Comme nts Hct (test code = Hct) 33.5 36.0-48.0 [facility] SpringsGzkxcplWAJUFAFGLB2793-35-41 12:20:00* Test Item Value Reference Range Interpretation Comme nts MCV (test code = MCV) 86.2 80.0-98.0 [facility] SpringsXgrxjobFAMNNSWWWT7762-76-52 12:20:00* Test Item Value Reference Range Interpretation Comme nts MCH (test code = MCH) 30.9 pg 27.0-31.0 [facility] SpringsQdyqpbtCXEHEFAJHP0920-68-79 12:20:00* Test Item Value Reference Range Interpretation Comme nts MCHC (test code = MCHC) 35.9 32.0-36.0 [facility] SpringsMgxxglqLDRRXSDBZW4332-33-97 12:20:00* Test Item Value Reference Range Interpretation Comme nts RDW (test code = RDW) 13.2 11.5-14.5 [facility] SpringsFolwkrcEOBTQYEEWO4881-51-31 12:20:00* Test Item Value Reference Range Interpretation Comme nts Platelet (test code = Platelet) 229 133-450 [facility]icsWstzirrNCNNLUJHK6810-93-87 12:20:00* Test Item Value Reference Range Interpretation Comme nts Glucose Lvl (test code = Glucose Lvl) 91 70-99 [facility]icsRmtyzupIOQWRMZMW9922-70-85 12:20:00* Test Item Value Reference Range Interpretation Comme nts BUN (test code = BUN) 8 7-22 [facility]icsHrmkrnvBOQJUUTIK0308-46-24 12:20:00* Test Item Value Reference Range Interpretation Comme nts Creatinine Lvl (test code = Creatinine Lvl) 0.41 0.50-1.40 [facility] SpringsCpnesmcQQFVPRIVUG2156-61-46 12:20:00* Test Item Value Reference Range Interpretation Comme nts MPV (test code = MPV) 8.2 7.4-10.4 [facility]icsLceikmdWYWCCIFXV2560-85-10 12:20:00* Test Item Value Reference Range Interpretation Comme nts Sodium Lvl (test code = Sodium Lvl) 135 135-145 [facility]icsEwxtozfDHKPCFIUT7291-71-94 12:20:00* Test Item Value Reference Range Interpretation Comme nts Potassium Lvl (test code = P otassium Lvl) 4.2 3.5-5.1 [facility]icsGneybhjODLMPKOON6621-14-19 12:20:00* Test Item Value Reference Range Interpretation Comme nts Chloride Lvl (test code = Chloride Lvl) 105 95-109 [facility]icsEbixyewCIRGYPBFA1803-57-31 12:20:00* Test Item Value Reference Range Interpretation Comme nts CO2 (test code = CO2) 27 24-32 [facility]icsXgcuwzoGIWONKGID2454-58-59 12:20:00* Test Item Value Reference Range Interpretation Comme nts Calcium Lvl (test code = Calcium Lvl) 8.6 8.5-10.5 [facility]icsRepalaaDSIURYLQZ4899-42-58 12:20:00* Test Item Value Reference Range Interpretation Comme nts AGAP (test code = AGAP) 7.2 10.0-20.0 [facility]icsUywqojgZSCNWUMLI5321-60-25 12:20:00* Test Item Value Reference Range Interpretation Comme nts eGFR (test code = eGFR) 132 [facility] SpringsSdvhllcRLIYONOLTA4029-68-30 12:20:00* Test Item Value Reference Range Interpretation Comme nts Segs (test code = Segs) 64.9 45.0-75.0 [facility] SpringsXgskkkcJIBICXEPPE2110-43-47 12:20:00* Test Item Value Reference Range Interpretation Comme nts Lymphocytes (test code = Lymphocytes) 20.3 20.0-40.0 [facility] SpringsTbxjcvyXJKEHTXDNS8076-31-92 12:20:00* Test Item Value Reference Range Interpretation Comme nts Monocytes (test code = Monocytes) 11.2 2.0-12.0 [facility] SpringsEqvwtxvCYUXKKWJLB7088-74-47 12:20:00* Test Item Value Reference Range Interpretation Comme nts Eosinophils (test code = Eosinophils) 3.2 <=4.0 [facility] SpringsBvazygkWLTUIQHOWX5760-77-61 12:20:00* Test Item Value Reference Range Interpretation Comme nts Basophils (test code = Basophils) 0.4 <=1.0 [facility] SpringsWleoxihZBVMBSGXDE4899-72-43 12:20:00* Test Item Value Reference Range Interpretation Comme nts Neutrophils # (test code = N eutrophils #) 6.5 1.5-8.1 [facility] SpringsBgnrcaxZJYZFQNJWF3707-25-77 12:20:00* Test Item Value Reference Range Interpretation Comme nts Lymphocytes # (test code = L ymphocytes #) 2.0 1.0-5.5 [facility] SpringsPxtqdocKVLGBKJMUV8864-52-22 12:20:00* Test Item Value Reference Range Interpretation Comme nts Monocytes # (test code = Monocytes #) 1.1 <=0.8 [facility] [facility] SpringsDshgwixSTMZAHJDME3387-95-46 12:20:00* Test Item Value Reference Range Interpretation Comme nts Eosinophils # (test code = E osinophils #) 0.3 <=0.5 [facility] SpringsJfreitzKTWVRDYCKT7103-89-10 12:20:00* Test Item Value Reference Range Interpretation Comme nts WBC (test code = WBC) 10.1 3.7-10.4 [facility] SpringsHssaffwZTFSMJJKED5019-66-26 12:20:00* Test Item Value Reference Range Interpretation Comme nts RBC (test code = RBC) 3.89 4.20-5.40 [facility] SpringsPwxhtiwXWVXJJHXSI2247-73-39 12:20:00* Test Item Value Reference Range Interpretation Comme nts Hgb (test code = Hgb) 12.0 12.0-16.0 [facility] SpringsVtxbakzUXNEPOIPBD0256-18-39 12:20:00* Test Item Value Reference Range Interpretation Comme nts Hct (test code = Hct) 33.5 36.0-48.0 [facility] SpringsAwqgliiSTVYONMRFA6839-37-61 12:20:00* Test Item Value Reference Range Interpretation Comme nts MCV (test code = MCV) 86.2 80.0-98.0 [facility] SpringsIwaprwsTHOWUYBMES1391-10-79 12:20:00* Test Item Value Reference Range Interpretation Comme nts MCH (test code = MCH) 30.9 pg 27.0-31.0 [facility] SpringsLncpqzgGYGOQMQDJL0085-23-50 12:20:00* Test Item Value Reference Range Interpretation Comme nts MCHC (test code = MCHC) 35.9 32.0-36.0 [facility] SpringsEpynvwnVKCOCVGBDY8735-56-51 12:20:00* Test Item Value Reference Range Interpretation Comme nts RDW (test code = RDW) 13.2 11.5-14.5 [facility] SpringsTznlypcJXJRWKCDLW4898-36-22 12:20:00* Test Item Value Reference Range Interpretation Comme nts Platelet (test code = Platelet) 229 133-450 [facility] SpringsQeinsspOQQVKTNCTX5452-78-95 12:20:00* Test Item Value Reference Range Interpretation Comme nts MPV (test code = MPV) 8.2 7.4-10.4 [facility]icsFnvtrpmPEADMQMAG3809-01-98 12:20:00* Test Item Value Reference Range Interpretation Comme nts Glucose Lvl (test code = Glucose Lvl) 91 70-99 [facility]icsLrvtmmfSOATZKFZH2473-40-26 12:20:00* Test Item Value Reference Range Interpretation Comme nts BUN (test code = BUN) 8 7-22 [facility]icsEuimrtkXLJIPSNGC4187-53-83 12:20:00* Test Item Value Reference Range Interpretation Comme nts Creatinine Lvl (test code = Creatinine Lvl) 0.41 0.50-1.40 [facility]icsXbumtpwKZINMCLPY0567-90-72 12:20:00* Test Item Value Reference Range Interpretation Comme nts Sodium Lvl (test code = Sodium Lvl) 135 135-145 [facility]icsMnzpsyrKKCYWEZUV4914-19-34 12:20:00* Test Item Value Reference Range Interpretation Comme nts Potassium Lvl (test code = P otassium Lvl) 4.2 3.5-5.1 [facility]icsRmsitbuDDVDHBVQV8195-81-36 12:20:00* Test Item Value Reference Range Interpretation Comme nts Chloride Lvl (test code = Chloride Lvl) 105 95-109 [facility]icsEssacjcWONCFOCWU7503-74-47 12:20:00* Test Item Value Reference Range Interpretation Comme nts CO2 (test code = CO2) 27 24-32 [facility]icsBmzbsotQNXHSRZFC8673-91-10 12:20:00* Test Item Value Reference Range Interpretation Comme nts Calcium Lvl (test code = Calcium Lvl) 8.6 8.5-10.5 [facility]icsUixsotcIRQRLTWEN4740-26-01 12:20:00* Test Item Value Reference Range Interpretation Comme nts AGAP (test code = AGAP) 7.2 10.0-20.0 [facility]icsTocxfkxDZOEYQVSA5808-76-21 12:20:00* Test Item Value Reference Range Interpretation Comme nts eGFR (test code = eGFR) 132 [facility] SpringsSbuvfqhBAEVCYDJIN0934-07-75 12:20:00* Test Item Value Reference Range Interpretation Comme nts Segs (test code = Segs) 64.9 45.0-75.0 [facility] SpringsMwlzftaMICLNYBIJF6201-66-23 12:20:00* Test Item Value Reference Range Interpretation Comme nts Lymphocytes (test code = Lymphocytes) 20.3 20.0-40.0 [facility] SpringsNxhwqczHDHEBMKCXT0409-68-36 12:20:00* Test Item Value Reference Range Interpretation Comme nts Monocytes (test code = Monocytes) 11.2 2.0-12.0 [facility] SpringsWcixuawDYUXIHQAPT3293-52-48 12:20:00* Test Item Value Reference Range Interpretation Comme nts Eosinophils (test code = Eosinophils) 3.2 <=4.0 [facility] SpringsKywyylgPEVPAVPSHH1474-12-78 12:20:00* Test Item Value Reference Range Interpretation Comme nts Basophils (test code = Basophils) 0.4 <=1.0 [facility] SpringsDndybzpAJKAKSCENA7809-30-11 12:20:00* Test Item Value Reference Range Interpretation Comme nts Neutrophils # (test code = N eutrophils #) 6.5 1.5-8.1 [facility] SpringsTtifefoLCIUBUHLXC9908-89-93 12:20:00* Test Item Value Reference Range Interpretation Comme nts Lymphocytes # (test code = L ymphocytes #) 2.0 1.0-5.5 [facility] SpringsMddyuinIAVIKPPVSF3941-14-10 12:20:00* Test Item Value Reference Range Interpretation Comme nts Monocytes # (test code = Monocytes #) 1.1 <=0.8 [facility] SpringsYffgsvuCOPHFKHKUD1124-90-54 12:20:00* Test Item Value Reference Range Interpretation Comme nts Eosinophils # (test code = E osinophils #) 0.3 <=0.5 [facility] SpringsJavfcseEMWUJROGCD3600-58-29 12:20:00* Test Item Value Reference Range Interpretation Comme nts WBC (test code = WBC) 10.1 3.7-10.4 [facility] SpringsEcgsqnwPYNKQPVCMX6525-40-23 12:20:00* Test Item Value Reference Range Interpretation Comme nts RBC (test code = RBC) 3.89 4.20-5.40 [facility] SpringsTlbztevIXBJTMZAQW4738-11-92 12:20:00* Test Item Value Reference Range Interpretation Comme nts Hgb (test code = Hgb) 12.0 12.0-16.0 [facility] SpringsUqbprlcBHWRGJYVON9515-70-43 12:20:00* Test Item Value Reference Range Interpretation Comme nts Hct (test code = Hct) 33.5 36.0-48.0 [facility] SpringsGdnjpnqVQTQZHJWUC6088-01-71 12:20:00* Test Item Value Reference Range Interpretation Comme nts MCV (test code = MCV) 86.2 80.0-98.0 [facility] SpringsUqlyghxONVANGKQCR0723-47-29 12:20:00* Test Item Value Reference Range Interpretation Comme nts MCH (test code = MCH) 30.9 pg 27.0-31.0 [facility] SpringsEhnpcjmYUJSYLZSPH9770-14-76 12:20:00* Test Item Value Reference Range Interpretation Comme nts MCHC (test code = MCHC) 35.9 32.0-36.0 [facility] SpringsAcaitrvTSKERKBKNU1411-26-87 12:20:00* Test Item Value Reference Range Interpretation Comme nts RDW (test code = RDW) 13.2 11.5-14.5 [facility] SpringsBcvwqvaNPPAMAILDS7427-41-75 12:20:00* Test Item Value Reference Range Interpretation Comme nts Platelet (test code = Platelet) 229 133-450 [facility] SpringsCdazipwUKLTNKTZRV5329-99-52 12:20:00* Test Item Value Reference Range Interpretation Comme nts MPV (test code = MPV) 8.2 7.4-10.4 [facility] SpringsKaimzveOGKUIBQRCW2597-36-54 10:03:00* Test Item Value Reference Range Interpretation Comme nts Basophils # (test code = Basophils #) 0.1 <=0.2 [facility] SpringsSnvpwmlDBBFKORYNW6160-87-56 10:03:00* Test Item Value Reference Range Interpretation Comme nts Basophils # (test code = Basophils #) 0.1 <=0.2 [facility] SpringsNxzlpfcBDDFUASXLU5013-12-68 10:03:00* Test Item Value Reference Range Interpretation Comme nts Basophils # (test code = Basophils #) 0.1 <=0.2 [facility] SpringsVjnvxsqMKBFNQFBXE2494-94-47 10:03:00* Test Item Value Reference Range Interpretation Comme nts Basophils # (test code = Basophils #) 0.1 <=0.2 [facility] SpringsBjiswqdAKUOJFYDWS0037-09-31 10:10:00* Test Item Value Reference Range Interpretation Comme nts RBC Morph (test code = RBC Morph) Normal (11/21/22 5:10 AM) [facility] SpringsKihgsmlYNIXIUDTWW6616-80-89 10:10:00* Test Item Value Reference Range Interpretation Comme nts Plt Morph (test code = Plt Morph) Normal (11/21/22 5:10 AM) [facility] SpringsQjvbnfpQTJBPCFZJE2396-39-58 10:10:00* Test Item Value Reference Range Interpretation Comme nts RBC Morph (test code = RBC Morph) Normal (11/21/22 5:10 AM) [facility] SpringsCzcjawhRIEBYKIJZL2038-97-76 10:10:00* Test Item Value Reference Range Interpretation Comme nts RBC Morph (test code = RBC Morph) Normal (11/21/22 5:10 AM) [facility] SpringsAsdcwdsYICMQQDZTI7265-07-67 10:10:00* Test Item Value Reference Range Interpretation Comme nts Plt Morph (test code = Plt Morph) Normal (11/21/22 5:10 AM) [facility] SpringsOhoibvgPVLDUWHMNA4668-73-61 10:10:00* Test Item Value Reference Range Interpretation Comme nts Plt Morph (test code = Plt Morph) Normal (11/21/22 5:10 AM) [facility] SpringsKllwccoXQYFOYVMHT1640-68-55 10:10:00* Test Item Value Reference Range Interpretation Comme nts RBC Morph (test code = RBC Morph) Normal (11/21/22 5:10 AM) [facility] SpringsWlrdoeiYEHYEOPOIY2673-58-14 10:10:00* Test Item Value Reference Range Interpretation Comme nts Plt Morph (test code = Plt Morph) Normal (11/21/22 5:10 AM) [facility]icsBitozqdAXLRNAKWW9995-36-03 07:04:00* Test Item Value Reference Range Interpretation Comme nts B/C Ratio (test code = B/C Ratio) 18 1 6- [facility]icsThhhyepCLBGVRMNE4133-61-51 07:04:00* Test Item Value Reference Range Interpretation Comme nts Total Protein (test code = T otal Protein) 5.4 6.4-8.4 [facility]icsZsqyyzpQSMRPGSQE0985-57-80 07:04:00* Test Item Value Reference Range Interpretation Comme nts Albumin Lvl (test code = Albumin Lvl) 2.1 3.5-5.0 [facility]icsBusdnxbAGHEKSETX1974-30-75 07:04:00* Test Item Value Reference Range Interpretation Comme nts Globulin (test code = Globulin) 3.3 2.7-4.2 [facility]icsXxuzpijKAEHNLYPO8046-80-59 07:04:00* Test Item Value Reference Range Interpretation Comme nts A/G Ratio (test code = A/G Ratio) 0.6 1 0.7-1.6 [facility]icsOgktizkGSOQRXZUD1479-02-82 07:04:00* Test Item Value Reference Range Interpretation Comme nts ALT (test code = ALT) 13 <=65 [facility]icsMhpmfgjAQTQGTPNC6503-72-72 07:04:00* Test Item Value Reference Range Interpretation Comme nts AST (test code = AST) 9 <=37 [facility]icsBcgdzdePSMOWOOSB4734-36-39 07:04:00* Test Item Value Reference Range Interpretation Comme nts Alk Phos (test code = Alk Phos) 106 39-136 [facility]icsGmgbnidXGFWRSQUE9206-31-11 07:04:00* Test Item Value Reference Range Interpretation Comme nts Bili Total (test code = Bili Total) 0.3 0.2-1.3 [facility]icsDdhxokjKWXWCBSBL9370-05-23 07:04:00* Test Item Value Reference Range Interpretation Comme nts Vancomycin AUC (test code = Vancomycin AUC) 5.0 [facility]icsTpmaiqrONKKCZQYI2095-20-86 07:04:00* Test Item Value Reference Range Interpretation Comme nts B/C Ratio (test code = B/C Ratio) 18 1 6-25 [facility]icsRtiludsPISNAFYTP0295-22-11 07:04:00* Test Item Value Reference Range Interpretation Comme nts Total Protein (test code = T otal Protein) 5.4 6.4-8.4 [facility]icsDhhwyxlKKJMGNXTJ2013-29-62 07:04:00* Test Item Value Reference Range Interpretation Comme nts Albumin Lvl (test code = Albumin Lvl) 2.1 3.5-5.0 [facility]icsIiixhlrOKNTGUKHG0236-92-67 07:04:00* Test Item Value Reference Range Interpretation Comme nts Globulin (test code = Globulin) 3.3 2.7-4.2 [facility]icsHkqwutdUYGDQOCFC6031-22-91 07:04:00* Test Item Value Reference Range Interpretation Comme nts A/G Ratio (test code = A/G Ratio) 0.6 1 0.7-1.6 [facility]icsXxvyatfUJGJINXJU0102-91-61 07:04:00* Test Item Value Reference Range Interpretation Comme nts ALT (test code = ALT) 13 <=65 [facility]icsJpvzbfjBJRHQMEKX6162-64-19 07:04:00* Test Item Value Reference Range Interpretation Comme nts AST (test code = AST) 9 <=37 [facility]icsJyxzhlrOGVQTQEYS9888-05-73 07:04:00* Test Item Value Reference Range Interpretation Comme nts Alk Phos (test code = Alk Phos) 106 39-136 [facility]icsLncqlwtJLLQAQTJC1795-64-16 07:04:00* Test Item Value Reference Range Interpretation Comme nts Bili Total (test code = Bili Total) 0.3 0.2-1.3 [facility]icsCjysiitQQIDBSTML4410-83-23 07:04:00* Test Item Value Reference Range Interpretation Comme nts Vancomycin AUC (test code = Vancomycin AUC) 5.0 [facility]icsXtthkapKZXNQFUQQ6155-88-41 07:04:00* Test Item Value Reference Range Interpretation Comme nts B/C Ratio (test code = B/C Ratio) 18 1 08-06 [facility]icsJykquxaIDFOFGLKA6878-45-44 07:04:00* Test Item Value Reference Range Interpretation Comme nts Total Protein (test code = T otal Protein) 5.4 6.4-8.4 [facility]icsBtixqahQIFMPLYUC1046-58-53 07:04:00* Test Item Value Reference Range Interpretation Comme nts Albumin Lvl (test code = Albumin Lvl) 2.1 3.5-5.0 [facility]icsDxasajeAVULNSTKC0887-38-10 07:04:00* Test Item Value Reference Range Interpretation Comme nts Globulin (test code = Globulin) 3.3 2.7-4.2 [facility]icsItagufsMTVIUEOZW0494-85-77 07:04:00* Test Item Value Reference Range Interpretation Comme nts A/G Ratio (test code = A/G Ratio) 0.6 1 0.7-1.6 [place] 151483-10-08 07:04:00* Test Item Value Reference Range Interpretation Comme nts ALT (test code = ALT) 13 <=65 [facility]icsQzpfufjRBLDCNCMC2749-26-90 07:04:00* Test Item Value Reference Range Interpretation Comme nts AST (test code = AST) 9 <=37 [facility]icsKbeqhrmEZZMUAQHA9370-83-66 07:04:00* Test Item Value Reference Range Interpretation Comme nts Alk Phos (test code = Alk Phos) 106 39-136 [facility]icsHbppsmkVKLAGHKRJ9504-49-21 07:04:00* Test Item Value Reference Range Interpretation Comme nts Bili Total (test code = Bili Total) 0.3 0.2-1.3 [facility]icsYmkxhjyQCCCDGJCS8498-31-06 07:04:00* Test Item Value Reference Range Interpretation Comme nts Vancomycin AUC (test code = Vancomycin AUC) 5.0 [facility]icsQbhtpueATFYVDXSW7322-77-41 07:04:00* Test Item Value Reference Range Interpretation Comme nts B/C Ratio (test code = B/C Ratio) 18 1 6-25 [facility]icsYybansmSIQGHJQGN7673-20-91 07:04:00* Test Item Value Reference Range Interpretation Comme nts Total Protein (test code = T otal Protein) 5.4 6.4-8.4 [facility]icsCvpcscaOOIQWQHJT7222-91-56 07:04:00* Test Item Value Reference Range Interpretation Comme nts Albumin Lvl (test code = Albumin Lvl) 2.1 3.5-5.0 [facility]icsOpeecotVPGHUQWOS8823-18-23 07:04:00* Test Item Value Reference Range Interpretation Comme nts Globulin (test code = Globulin) 3.3 2.7-4.2 [facility]icsZxxjtcoUPZLWOMRZ0872-66-00 07:04:00* Test Item Value Reference Range Interpretation Comme nts A/G Ratio (test code = A/G Ratio) 0.6 1 0.7-1.6 [facility]icsSippdtlUUPXQLAEL7169-18-63 07:04:00* Test Item Value Reference Range Interpretation Comme nts ALT (test code = ALT) 13 <=65 [facility]icsGnymyhuGWGZWVCFB5000-50-81 07:04:00* Test Item Value Reference Range Interpretation Comme nts AST (test code = AST) 9 <=37 [facility]icsFvrqauxNQEKONSKQ9175-44-70 07:04:00* Test Item Value Reference Range Interpretation Comme nts Alk Phos (test code = Alk Phos) 106 39-136 [facility]icsWupzhknRQTAWGHXJ2063-81-04 07:04:00* Test Item Value Reference Range Interpretation Comme nts Bili Total (test code = Bili Total) 0.3 0.2-1.3 [facility]icsGjrbrolIUEMNEOJF7258-26-22 07:04:00* Test Item Value Reference Range Interpretation Comme nts Vancomycin AUC (test code = Vancomycin AUC) 5.0 [facility]icsYptpzqkGDSYBMNYJ2153-93-26 01:13:00* Test Item Value Reference Range Interpretation Comme nts Lactic Acid Lvl (test code = Lactic Acid Lvl) 1.8 0.5-2.2 [facility]icsNiuwbqjSBZGFPQGX8381-02-07 01:13:00* Test Item Value Reference Range Interpretation Comme nts Lactic Acid Lvl (test code = Lactic Acid Lvl) 1.8 0.5-2.2 [facility]icsGxujcefLQYHBABSL0280-94-03 01:13:00* Test Item Value Reference Range Interpretation Comme nts Lactic Acid Lvl (test code = Lactic Acid Lvl) 1.8 0.5-2.2 [facility]icsVikvgwzTBBQCJQES0363-44-80 01:13:00* Test Item Value Reference Range Interpretation Comme nts Lactic Acid Lvl (test code = Lactic Acid Lvl) 1.8 0.5-2.2 [facility]icsKnamaaqGDAATOLBN9267-77-12 17:27:00* Test Item Value Reference Range Interpretation Comme nts U Amph Scr (test code = U Amph Scr) Positive *ABN*(11/18/22 12:27 PM) [facility]icsSvwjjmaQXAONMPWS7095-68-30 17:27:00* Test Item Value Reference Range Interpretation Comme nts U Alesia Scr (test code = U Alesia Scr) Negative *NA*(11/18/22 12:27 PM) [facility]icsNvajmenOHDPWEOBH4396-27-52 17:27:00* Test Item Value Reference Range Interpretation Comme nts U Benzodiaz Scr (test code = U Benzodiaz Scr) Negative *NA*(11/18/22 12:27 PM) [facility]icsFnaywycCAZPFWXUH0826-13-84 17:27:00* Test Item Value Reference Range Interpretation Comme nts U Cocaine Scr (test code = U Cocaine Scr) Negative *NA*(11/18/22 12:27 PM) [facility]icsCkiibirJEODXOMHR8975-89-06 17:27:00* Test Item Value Reference Range Interpretation Comme nts U Cannab Scr (test code = U Cannab Scr) Negative *NA*(11/18/22 12:27 PM) [facility]icsCirqdqpTNNYJYNMK6780-91-39 17:27:00* Test Item Value Reference Range Interpretation Comme nts U Opiate Scr (test code = U Opiate Scr) Negative *NA*(11/18/22 12:27 PM) [facility]icsJkqsqdlWKRQPKUKP9781-65-69 17:27:00* Test Item Value Reference Range Interpretation Comme nts U Phencyclidine Scr (test code = U Phencyclidine Scr) Negative *NA*(11/18/22 12:27 PM) [facility]icsYsluffnBOAZNSRPM8147-27-49 17:27:00* Test Item Value Reference Range Interpretation Comme nts UDS Note (test code = UDS Note) See Note 2(11/18/22 12:27 PM) [facility]icsNwuwbewOUSVVUOIJ4542-58-28 17:27:00* Test Item Value Reference Range Interpretation Comme nts U Amph Scr (test code = U Amph Scr) Positive *ABN*(11/18/22 12:27 PM) [facility]icsHjcpfekFNJWZMPYQ6034-75-33 17:27:00* Test Item Value Reference Range Interpretation Comme nts U Alesia Scr (test code = U Alesia Scr) Negative *NA*(11/18/22 12:27 PM) [facility]icsKqrpgdwDRDASHXUS5207-07-65 17:27:00* Test Item Value Reference Range Interpretation Comme nts U Benzodiaz Scr (test code = U Benzodiaz Scr) Negative *NA*(11/18/22 12:27 PM) [facility]icsPxjqrlbROHBXVZIA1552-59-48 17:27:00* Test Item Value Reference Range Interpretation Comme nts U Cocaine Scr (test code = U Cocaine Scr) Negative *NA*(11/18/22 12:27 PM) [facility]icsCnlbgnlQYARJWHJI0797-11-15 17:27:00* Test Item Value Reference Range Interpretation Comme nts U Cannab Scr (test code = U Cannab Scr) Negative *NA*(11/18/22 12:27 PM) [facility]icsUbdmkzgFLCTCDYNU5557-96-77 17:27:00* Test Item Value Reference Range Interpretation Comme nts U Opiate Scr (test code = U Opiate Scr) Negative *NA*(11/18/22 12:27 PM) [facility]icsZehwfotTHRPORKDO4319-78-33 17:27:00* Test Item Value Reference Range Interpretation Comme nts U Phencyclidine Scr (test code = U Phencyclidine Scr) Negative *NA*(11/18/22 12:27 PM) [facility]icsYvofqoiHBTBMBURG3670-44-58 17:27:00* Test Item Value Reference Range Interpretation Comme nts UDS Note (test code = UDS Note) See Note 2(11/18/22 12:27 PM) [facility]icsFbibasjRNJPTBVCR5070-89-34 17:27:00* Test Item Value Reference Range Interpretation Comme nts U Amph Scr (test code = U Amph Scr) Positive *ABN*(11/18/22 12:27 PM) [facility]icsSimuhxaARYGXVDGA4218-92-10 17:27:00* Test Item Value Reference Range Interpretation Comme nts U Alesia Scr (test code = U Alesia Scr) Negative *NA*(11/18/22 12:27 PM) [facility]icsOkuprvlMYRTOPRFR7099-81-87 17:27:00* Test Item Value Reference Range Interpretation Comme nts U Benzodiaz Scr (test code = U Benzodiaz Scr) Negative *NA*(11/18/22 12:27 PM) [facility]icsNupwgomTCPCRCNDF8607-02-88 17:27:00* Test Item Value Reference Range Interpretation Comme nts U Cocaine Scr (test code = U Cocaine Scr) Negative *NA*(11/18/22 12:27 PM) [facility]icsIwfbtcdFWXXPUBCR0792-99-98 17:27:00* Test Item Value Reference Range Interpretation Comme nts U Cannab Scr (test code = U Cannab Scr) Negative *NA*(11/18/22 12:27 PM) [facility]icsGfefgusGAGMEAJWW3668-20-90 17:27:00* Test Item Value Reference Range Interpretation Comme nts U Opiate Scr (test code = U Opiate Scr) Negative *NA*(11/18/22 12:27 PM) [facility]icsKwgiudoBBWDEOLUK4703-29-16 17:27:00* Test Item Value Reference Range Interpretation Comme nts U Phencyclidine Scr (test code = U Phencyclidine Scr) Negative *NA*(11/18/22 12:27 PM) [facility]icsZkhiwdsEOGQNHRZE3240-68-13 17:27:00* Test Item Value Reference Range Interpretation Comme nts UDS Note (test code = UDS Note) See Note 2(11/18/22 12:27 PM) [facility]icsDbbpanhAEIWHHFMY2594-08-66 17:27:00* Test Item Value Reference Range Interpretation Comme nts U Amph Scr (test code = U Amph Scr) Positive *ABN*(11/18/22 12:27 PM) [facility]icsNzvxqmqTIVPOZXCP7320-96-89 17:27:00* Test Item Value Reference Range Interpretation Comme nts U Alesia Scr (test code = U Alesia Scr) Negative *NA*(11/18/22 12:27 PM) [facility]icsYvtaozqEJYYYMUHJ8097-96-96 17:27:00* Test Item Value Reference Range Interpretation Comme nts U Benzodiaz Scr (test code = U Benzodiaz Scr) Negative *NA*(11/18/22 12:27 PM) [facility]icsVswenihACCQWAMKK8444-31-32 17:27:00* Test Item Value Reference Range Interpretation Comme nts U Cocaine Scr (test code = U Cocaine Scr) Negative *NA*(11/18/22 12:27 PM) [facility]icsEuzmlcsLVCQBTLAL1813-33-48 17:27:00* Test Item Value Reference Range Interpretation Comme nts U Cannab Scr (test code = U Cannab Scr) Negative *NA*(11/18/22 12:27 PM) [facility]icsQwycdfrYOMALCCVP1420-24-46 17:27:00* Test Item Value Reference Range Interpretation Comme nts U Opiate Scr (test code = U Opiate Scr) Negative *NA*(11/18/22 12:27 PM) Frank ReyesLfzzslhUPJZEICSE6252-50-71 17:27:00* Test Item Value Reference Range Interpretation Comme nts U Phencyclidine Scr (test code = U Phencyclidine Scr) Negative *NA*(11/18/22 12:27 PM) [facility] SwjabdcRWMHMIDTK0455-93-86 17:27:00* Test Item Value Reference Range Interpretation Comme nts UDS Note (test code = UDS Note) See Note 2(11/18/22 12:27 PM) [facility] MvztfbvIZCTZZ5686-24-24 16:42:21* Test Item Value Reference Range Interpretation Comme nts RADRPT (test code = RADRPT) PROCEDURE INFORMATION: Exam: US , Limited Exam date and time: 11/18/2022 9:22 AM Age: 32 years old Clinical indication: / eval TECHNIQUE: Imaging protocol: Real-time ultrasound of the maternal uterus with image documentation. Exam focused on the clinical indication. COMPARISON: TRAUMA CHEST/ABD/PELVIS W IV CONTRAST CT 10/06/2022 6:36 PM FINDINGS: Gestation: Single intrauterine gestation. heart rate: 143 bpm. position: Breech position. Placenta: Anterior, no evidence placenta previa. Amniotic fluid index: 15.53 cm. ANATOMY: left ventricular outflow tract: Unremarkable. kidneys: Unremarkable. Umbilical cord vessel number: Unremarkable. BIOMETRY: Gestational age (AUA): 25 weeks, 2 days. Estimated due date (AUA): 03/01/2023. Biparietal diameter (BPD): 6.48 cm. EGA 26 weeks, 1 day. Head circumference (HC): 23.37 cm. EGA 25 weeks, 4 days. Abdominal circumference (AC): 19.46 cm. EGA 24 weeks, 2 days. Femur length (FL): 4.44 cm. EGA 24 weeks, 5 days. MATERNAL: Cervix: Cervical length 3.4 cm. IMPRESSION: 1. Single intrauterine in breech position. 2. Limited evaluation of anatomy. Based upon estimated gestational age, consideration for dedicated anatomy ultrasound. Sarthak Bill MD On 11/18/2022 11:41:45; [id number] [facility] [id number] 16:42:21* Test Item Value Reference Range Interpretation Comme [facility] RADRPT (test code = RADRPT) PROCEDURE INFORMATION: Exam: US , Limited Exam date and time: 11/18/2022 9:22 AM Age: 32 years old Clinical indication: / eval TECHNIQUE: Imaging protocol: Real-time ultrasound of the maternal uterus with image documentation. Exam focused on the clinical indication. COMPARISON: TRAUMA CHEST/ABD/PELVIS W IV CONTRAST CT 10/06/2022 6:36 PM FINDINGS: Gestation: Single intrauterine gestation. heart rate: 143 bpm. position: Breech position. Placenta: Anterior, no evidence placenta previa. Amniotic fluid index: 15.53 cm. ANATOMY: left ventricular outflow tract: Unremarkable. kidneys: Unremarkable. Umbilical cord vessel number: Unremarkable. BIOMETRY: Gestational age (AUA): 25 weeks, 2 days. Estimated due date (AUA): 03/01/2023. Biparietal diameter (BPD): 6.48 cm. EGA 26 weeks, 1 day. Head circumference (HC): 23.37 cm. EGA 25 weeks, 4 days. Abdominal circumference (AC): 19.46 cm. EGA 24 weeks, 2 days. Femur length (FL): 4.44 cm. EGA 24 weeks, 5 days. MATERNAL: Cervix: Cervical length 3.4 cm. IMPRESSION: 1. Single intrauterine in breech position. 2. Limited evaluation of anatomy. Based upon estimated gestational age, consideration for dedicated anatomy ultrasound. Sarthak Bill MD On 11/18/2022 11:41:45; [id number] [facility] [id number] 16:42:21* Test Item Value Reference Range Interpretation Comme [facility] RADRPT (test code = RADRPT) PROCEDURE INFORMATION: Exam: US , Limited Exam date and time: 11/18/2022 9:22 AM Age: 32 years old Clinical indication: / eval TECHNIQUE: Imaging protocol: Real-time ultrasound of the maternal uterus with image documentation. Exam focused on the clinical indication. COMPARISON: TRAUMA CHEST/ABD/PELVIS W IV CONTRAST CT 10/06/2022 6:36 PM FINDINGS: Gestation: Single intrauterine gestation. heart rate: 143 bpm. position: Breech position. Placenta: Anterior, no evidence placenta previa. Amniotic fluid index: 15.53 cm. ANATOMY: left ventricular outflow tract: Unremarkable. kidneys: Unremarkable. Umbilical cord vessel number: Unremarkable. BIOMETRY: Gestational age (AUA): 25 weeks, 2 days. Estimated due date (AUA): 03/01/2023. Biparietal diameter (BPD): 6.48 cm. EGA 26 weeks, 1 day. Head circumference (HC): 23.37 cm. EGA 25 weeks, 4 days. Abdominal circumference (AC): 19.46 cm. EGA 24 weeks, 2 days. Femur length (FL): 4.44 cm. EGA 24 weeks, 5 days. MATERNAL: Cervix: Cervical length 3.4 cm. IMPRESSION: 1. Single intrauterine in breech position. 2. Limited evaluation of anatomy. Based upon estimated gestational age, consideration for dedicated anatomy ultrasound. Sarthak Bill MD On 11/18/2022 11:41:45; [id number] [id number] 16:42:21* Test Item Value Reference Range Interpretation Comme nts RADRPT (test code = RADRPT) PROCEDURE INFORMATION: Exam: US , Limited Exam date and time: 11/18/2022 9:22 AM Age: 32 years old Clinical indication: / eval TECHNIQUE: Imaging protocol: Real-time ultrasound of the maternal uterus with image documentation. Exam focused on the clinical indication. COMPARISON: TRAUMA CHEST/ABD/PELVIS W IV CONTRAST CT 10/06/2022 6:36 PM FINDINGS: Gestation: Single intrauterine gestation. heart rate: 143 bpm. position: Breech position. Placenta: Anterior, no evidence placenta previa. Amniotic fluid index: 15.53 cm. ANATOMY: left ventricular outflow tract: Unremarkable. kidneys: Unremarkable. Umbilical cord vessel number: Unremarkable. BIOMETRY: Gestational age (AUA): 25 weeks, 2 days. Estimated due date (AUA): 03/01/2023. Biparietal diameter (BPD): 6.48 cm. EGA 26 weeks, 1 day. Head circumference (HC): 23.37 cm. EGA 25 weeks, 4 days. Abdominal circumference (AC): 19.46 cm. EGA 24 weeks, 2 days. Femur length (FL): 4.44 cm. EGA 24 weeks, 5 days. MATERNAL: Cervix: Cervical length 3.4 cm. IMPRESSION: 1. Single intrauterine in breech position. 2. Limited evaluation of anatomy. Based upon estimated gestational age, consideration for dedicated anatomy ultrasound. Sarthak Bill MD On 11/18/2022 11:41:45; [id number] [facility] CenterRnkkpbeCYDCEN2591-88-77 15:28:34* Test Item Value Reference Range Interpretation Comme [facility] RADRPT (test code = RADRPT) PROCEDURE INFORMATION: Exam: US Duplex Left Lower Extremity Veins, Limited Exam date and time: 11/18/2022 9:43 AM Age: 32 years old Clinical indication: /leg swelling TECHNIQUE: Imaging protocol: Real-time duplex ultrasound of the left extremity with 2-D roman scale, color Doppler flow and spectral waveform analysis including responses to compression and other maneuvers (when performed) with image documentation. Limited exam focused on the left lower extremity veins. COMPARISON: US AGE [age]/18/2022 9:22 AM FINDINGS: Left deep veins: Unremarkable. The common femoral, femoral, proximal profunda femoral and popliteal veins are patent without thrombus. Normal Doppler waveforms. Normal compressibility and/or augmentation response. Superficial veins: Unremarkable. Saphenofemoral junction is patent without thrombus. Soft tissues: Ill-defined hypoechoic area in the superficial soft tissues of the left leg may represent cellulitis and phlegmonous changes; cannot exclude early abscess formation.IMPRESSION: No evidence of deep vein thrombosis. Ill-defined hypoechoic area in the superficial soft tissues of the left leg may represent cellulitis and phlegmonous changes; cannot exclude early abscess formation.Bletran Garcia MD On 11/18/2022 10:28:09; [id number] [facility] [id number] 15:28:34* Test Item Value Reference Range Interpretation Comme [facility] RADRPT (test code = RADRPT) PROCEDURE INFORMATION: Exam: US Duplex Left Lower Extremity Veins, Limited Exam date and time: 11/18/2022 9:43 AM Age: 32 years old Clinical indication: /leg swelling TECHNIQUE: Imaging protocol: Real-time duplex ultrasound of the left extremity with 2-D roman scale, color Doppler flow and spectral waveform analysis including responses to compression and other maneuvers (when performed) with image documentation. Limited exam focused on the left lower extremity veins. COMPARISON: US AGE [age]/18/2022 9:22 AM FINDINGS: Left deep veins: Unremarkable. The common femoral, femoral, proximal profunda femoral and popliteal veins are patent without thrombus. Normal Doppler waveforms. Normal compressibility and/or augmentation response. Superficial veins: Unremarkable. Saphenofemoral junction is patent without thrombus. Soft tissues: Ill-defined hypoechoic area in the superficial soft tissues of the left leg may represent cellulitis and phlegmonous changes; cannot exclude early abscess formation.IMPRESSION: No evidence of deep vein thrombosis. Ill-defined hypoechoic area in the superficial soft tissues of the left leg may represent cellulitis and phlegmonous changes; cannot exclude early abscess formation.Beltran Garcia MD On 11/18/2022 10:28:09; [id number] [id number] 15:28:34* Test Item Value Reference Range Interpretation Comme nts RADRPT (test code = RADRPT) PROCEDURE INFORMATION: Exam: US Duplex Left Lower Extremity Veins, Limited Exam date and time: 11/18/2022 9:43 AM Age: 32 years old Clinical indication: /leg swelling TECHNIQUE: Imaging protocol: Real-time duplex ultrasound of the left extremity with 2-D roman scale, color Doppler flow and spectral waveform analysis including responses to compression and other maneuvers (when performed) with image documentation. Limited exam focused on the left lower extremity veins. COMPARISON: US AGE [age]/18/2022 9:22 AM FINDINGS: Left deep veins: Unremarkable. The common femoral, femoral, proximal profunda femoral and popliteal veins are patent without thrombus. Normal Doppler waveforms. Normal compressibility and/or augmentation response. Superficial veins: Unremarkable. Saphenofemoral junction is patent without thrombus. Soft tissues: Ill-defined hypoechoic area in the superficial soft tissues of the left leg may represent cellulitis and phlegmonous changes; cannot exclude early abscess formation.IMPRESSION: No evidence of deep vein thrombosis. Ill-defined hypoechoic area in the superficial soft tissues of the left leg may represent cellulitis and phlegmonous changes; cannot exclude early abscess formation.Beltran Garcia MD On 11/18/2022 10:28:09; [id number] [facility] CenterEysjgsyLOSBHJ2217-00-23 15:28:34* Test Item Value Reference Range Interpretation Comme nts RADRPT (test code = RADRPT) PROCEDURE INFORMATION: Exam: US Duplex Left Lower Extremity Veins, Limited Exam date and time: 11/18/2022 9:43 AM Age: 32 years old Clinical indication: /leg swelling TECHNIQUE: Imaging protocol: Real-time duplex ultrasound of the left extremity with 2-D roman scale, color Doppler flow and spectral waveform analysis including responses to compression and other maneuvers (when performed) with image documentation. Limited exam focused on the left lower extremity veins. COMPARISON: US AGE [age]/18/2022 9:22 AM FINDINGS: Left deep veins: Unremarkable. The common femoral, femoral, proximal profunda femoral and popliteal veins are patent without thrombus. Normal Doppler waveforms. Normal compressibility and/or augmentation response. Superficial veins: Unremarkable. Saphenofemoral junction is patent without thrombus. Soft tissues: Ill-defined hypoechoic area in the superficial soft tissues of the left leg may represent cellulitis and phlegmonous changes; cannot exclude early abscess formation.IMPRESSION: No evidence of deep vein thrombosis. Ill-defined hypoechoic area in the superficial soft tissues of the left leg may represent cellulitis and phlegmonous changes; cannot exclude early abscess formation.Beltran Garcia MD On 11/18/2022 10:28:09; [id number] [facility] C[id number] 12:22:00* Test Item Value Reference Range Interpretation Comme nts Procalcitonin Lvl (test code = Procalcitonin Lvl) no gt <=0.10 [facility] CenterKkmhcuaUONUYEDHRP2613-53-94 12:22:00* Test Item Value Reference Range Interpretation Comme nts C-REACTIVE PROTEIN (test cod e = C-REACTIVE PROTEIN) 23.2 [facility] CenterCulture: [id number] 12:22:00* Test Item Value Reference Range Interpretation Comme nts Culture: Blood (test code = Culture: Blood) No [facility] At 5 [facility] [id number] 12:22:00* Test Item Value Reference Range Interpretation Comme nts Culture: Blood (test code = Culture: Blood) No Growth At 5 Days [facility] [id number] 12:22:00* Test Item Value Reference Range Interpretation Comme nts ABO/Rh (test code = ABO/Rh) A POS [facility] [id number] 12:22:00* Test Item Value Reference Range Interpretation Comme nts Antibody Scrn (test code = Antibody Scrn) Negative (11/18/22 7:22 AM) [facility][id number] 12:22:00* Test Item Value Reference Range Interpretation Comme nts Procalcitonin Lvl (test code = Procalcitonin Lvl) no gt <=0.10 [facility] [id number] 12:22:00* Test Item Value Reference Range Interpretation Comme nts C-REACTIVE PROTEIN (test cod e = C-REACTIVE PROTEIN) 23.2 [facility]: [id number] 12:22:00* Test Item Value Reference Range Interpretation Comme nts Culture: Blood (test code = Culture: Blood) No Growth At 5 Days [facility]: [id number] 12:22:00* Test Item Value Reference Range Interpretation Comme nts Culture: Blood (test code = Culture: Blood) No Growth At 5 Days [facility] [id number] 12:22:00* Test Item Value Reference Range Interpretation Comme nts ABO/Rh (test code = ABO/Rh) A POS [facility] [id number] 12:22:00* Test Item Value Reference Range Interpretation Comme nts Antibody Scrn (test code = Antibody Scrn) Negative (11/18/22 7:22 AM) [facility][id number] 12:22:00* Test Item Value Reference Range Interpretation Comme nts Procalcitonin Lvl (test code = Procalcitonin Lvl) no gt <=0.10 [facility] WorthRyseaewKZHFNHLPUO5944-35-08 12:22:00* Test Item Value Reference Range Interpretation Comme nts C-REACTIVE PROTEIN (test cod e = C-REACTIVE PROTEIN) 23.2 [facility]: [id number] 12:22:00* Test Item Value Reference Range Interpretation Comme nts Culture: Blood (test code = Culture: Blood) No Growth At 5 Days [facility]: [id number] 12:22:00* Test Item Value Reference Range Interpretation Comme nts Culture: Blood (test code = Culture: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 23:52:00* Test Item Value Reference Range Interpretation Comme nts Potassium Lvl (test code = P otassium Lvl) 3.5 3.5-5.1 [facility]icsGyhqbrbKHKAOGFYP9059-15-84 23:52:00* Test Item Value Reference Range Interpretation Comme nts Chloride Lvl (test code = Chloride Lvl) 109 95-109 [facility]icsOhwbubbCVHBHKRQT2972-23-44 23:52:00* Test Item Value Reference Range Interpretation Comme nts CO2 (test code = CO2) 21 24-32 [facility]icsKvnuiikNUQUPVBUR6889-02-61 23:52:00* Test Item Value Reference Range Interpretation Comme nts AGAP (test code = AGAP) 12.5 10.0-20.0 [facility] ClinicsIntabnlGZSIJMNTK2884-76-30 23:52:00* Test Item Value Reference Range Interpretation Comme nts Calcium Lvl (test code = Calcium Lvl) 8.3 8.5-10.5 [facility]icsNirehtxYKFFWBXBF1961-22-94 23:52:00* Test Item Value Reference Range Interpretation Comme nts eGFR (test code = eGFR) 134 [facility]icsFwmgqnpXAJPRJVSO4971-05-74 23:52:00* Test Item Value Reference Range Interpretation Comme nts Ethanol Lvl (test code = Ethanol Lvl) no gt [facility]icsTglnwwjBVOTJYGJP8574-87-90 23:52:00* Test Item Value Reference Range Interpretation Comme nts Etoh (%) (test code = Etoh (%)) no gt [facility] ClinicsVnsqpdvUDIKSKPMN6295-80-09 23:52:00* Test Item Value Reference Range Interpretation Comme nts Lactic Acid Lvl (test code = Lactic Acid Lvl) 1.0 0.5-2.2 [facility]icsHyeljspHEWEDLMYT4773-73-19 23:52:00* Test Item Value Reference Range Interpretation Comme nts S Preg (test code = S Preg) Positive *NA*(10/06/22 6:52 PM) [facility]icsRpvgbtmIMZGLVYJJ5387-92-78 23:52:00* Test Item Value Reference Range Interpretation Comme nts pH Joseph (test code = pH Joseph) 7.37 1 7.28-7.42 [place] 151483-08-25 23:52:00* Test Item Value Reference Range Interpretation Comme nts pCO2 Joseph (test code = pCO2 Joseph) 36 38-52 [facility] ClinicsVqyczqlSSSJVATOS2585-94-86 23:52:00* Test Item Value Reference Range Interpretation Comme nts pO2 Joseph (test code = pO2 Joseph) 79 20-49 [facility]icsSpgfkbhNDBMKSWEB8504-12-74 23:52:00* Test Item Value Reference Range Interpretation Comme nts HCO3 Joseph (test code = HCO3 Joseph) 21 22-26 [facility] ClinicsBvezlnqEFVITKWAB8295-77-22 23:52:00* Test Item Value Reference Range Interpretation Comme nts BE Joseph (test code = BE Joseph) -4 -2-2 [facility] ClinicsQyyxjcjYHJMIYDYG8120-73-81 23:52:00* Test Item Value Reference Range Interpretation Comme nts O2 Sat Joseph (calc) (test code = O2 Sat Joseph (calc)) 95.2 40.0-70.0 [facility] ClinicsLjsabcvMSMOUPOBG0083-99-77 23:52:00* Test Item Value Reference Range Interpretation Comme nts Temp Joseph (test code = Temp Joseph) 37.0 [place] 85444023-08-25 23:52:00* Test Item Value Reference Range Interpretation Comme nts S Preg (test code = S Preg) Positive *NA*(10/06/22 6:52 PM) [facility] SpringsDscxjuyOPNSCUVMPY3311-01-96 23:52:00* Test Item Value Reference Range Interpretation Comme nts WBC X 10x3 (test code = WBC X 10x3) 14.1 3.7-10.4 [facility] SpringsYegeqvdBMTESCLKLS9617-02-99 23:52:00* Test Item Value Reference Range Interpretation Comme nts RBC X 10x6 (test code = RBC X 10x6) 3.76 4.20-5.40 [facility] SpringsRzdxehhBIQABRXZDA2141-54-35 23:52:00* Test Item Value Reference Range Interpretation Comme nts Hgb (test code = Hgb) 11.2 12.0-16.0 [place] 155513-08-25 23:52:00* Test Item Value Reference Range Interpretation Comme nts Hct (test code = Hct) 32.9 36.0-48.0 [facility] SpringsMpgnyopWDFNJPMLLK7383-41-75 23:52:00* Test Item Value Reference Range Interpretation Comme nts MCV (test code = MCV) 87.6 80.0-98.0 [facility] SpringsZtqgldnULHKHMKHTH3699-75-75 23:52:00* Test Item Value Reference Range Interpretation Comme nts MCH (test code = MCH) 29.9 pg 27.0-31.0 [place] 155513-08-25 23:52:00* Test Item Value Reference Range Interpretation Comme nts MCHC (test code = MCHC) 34.1 32.0-36.0 [facility] SpringsLwfyuzbPAMPJEJWYQ1996-34-39 23:52:00* Test Item Value Reference Range Interpretation Comme nts RDW (test code = RDW) 13.4 11.5-14.5 [place] 155513-08-25 23:52:00* Test Item Value Reference Range Interpretation Comme nts Platelet (test code = Platelet) 255 133-450 [facility] SpringsDxjlluuNPGMCSVSUK2696-70-60 23:52:00* Test Item Value Reference Range Interpretation Comme nts MPV (test code = MPV) 7.9 7.4-10.4 [place] 155513-08-25 23:52:00* Test Item Value Reference Range Interpretation Comme nts ACT (TEG) Rapid (test code = ACT (TEG) Rapid) 97 s 86-118 [facility] SpringsEqsqikgBYRVIKKEUB1955-06-63 23:52:00* Test Item Value Reference Range Interpretation Comme nts [place] Rapid (test code = [place] Rapid) 0.4 min [place] 155513-08-25 23:52:00* Test Item Value Reference Range Interpretation Comme nts R-time Rapid (test code = R- time Rapid) 0.5 min 0.4-0.7 [place] 155513-08-25 23:52:00* Test Item Value Reference Range Interpretation Comme nts K-time Rapid (test code = K- time Rapid) 0.9 min 0.6-2.3 [place] 155513-08-25 23:52:00* Test Item Value Reference Range Interpretation Comme nts Angle Rapid (test code = Ang le Rapid) 79 degrees 64-80 [facility] SpringsOlxhukrVPJAWGLIZQ3203-78-09 23:52:00* Test Item Value Reference Range Interpretation Comme nts Max Amplitude Rapid (test co de = Max Amplitude Rapid) 73 mm 52-71 [facility] SpringsMisiguuCXOPOSEFSA6388-75-33 23:52:00* Test Item Value Reference Range Interpretation Comme nts G-value Rapid (test code = G -value Rapid) 13.3 5.0-11.6 [place] [address]-08-25 23:52:00* Test Item Value Reference Range Interpretation Comme nts Estimated % Lysis Rapid (betito t code = Estimated % Lysis Rapid) 0.6 <=7.5 [place] [address]-08-25 23:52:00* Test Item Value Reference Range Interpretation Comme nts Segs (test code = Segs) 80.6 45.0-75.0 [place] [address]-08-25 23:52:00* Test Item Value Reference Range Interpretation Comme nts Lymphocytes (test code = Lymphocytes) 12.2 20.0-40.0 [place] [address]-08-25 23:52:00* Test Item Value Reference Range Interpretation Comme nts Monocytes (test code = Monocytes) 6.1 2.0-12.0 [place] [address]-08-25 23:52:00* Test Item Value Reference Range Interpretation Comme nts Eosinophils (test code = Eosinophils) 0.6 <=4.0 [place] [address]-08-25 23:52:00* Test Item Value Reference Range Interpretation Comme nts Basophils (test code = Basophils) 0.5 <=1.0 [place] [address]-08-25 23:52:00* Test Item Value Reference Range Interpretation Comme nts Neutrophils # (test code = N eutrophils #) 11.3 1.5-8.1 [place] [address]-08-25 23:52:00* Test Item Value Reference Range Interpretation Comme nts Lymphocytes # (test code = L ymphocytes #) 1.7 1.0-5.5 [facility] SpringsJxiedwxCXCXBQUEDQ8407-01-11 23:52:00* Test Item Value Reference Range Interpretation Comme nts Monocytes # (test code = Monocytes #) 0.9 <=0.8 [place] 155513-08-25 23:52:00* Test Item Value Reference Range Interpretation Comme nts Eosinophils # (test code = E osinophils #) 0.1 <=0.5 [place] [address]-08-25 23:52:00* Test Item Value Reference Range Interpretation Comme nts Basophils # (test code = Basophils #) 0.1 <=0.2 [place] [address]-08-25 23:52:00* Test Item Value Reference Range Interpretation Comme nts WBC X 10x3 (test code = WBC X 10x3) 14.1 3.7-10.4 [place] 155513-08-25 23:52:00* Test Item Value Reference Range Interpretation Comme nts RBC X 10x6 (test code = RBC X 10x6) 3.76 4.20-5.40 [place] 155513-08-25 23:52:00* Test Item Value Reference Range Interpretation Comme nts Hgb (test code = Hgb) 11.2 12.0-16.0 [place] 155513-08-25 23:52:00* Test Item Value Reference Range Interpretation Comme nts Hct (test code = Hct) 32.9 36.0-48.0 [place] 155513-08-25 23:52:00* Test Item Value Reference Range Interpretation Comme nts MCV (test code = MCV) 87.6 80.0-98.0 [place] [address]-08-25 23:52:00* Test Item Value Reference Range Interpretation Comme nts MCH (test code = MCH) 29.9 pg 27.0-31.0 [place] [address]-08-25 23:52:00* Test Item Value Reference Range Interpretation Comme nts MCHC (test code = MCHC) 34.1 32.0-36.0 [place] 155513-08-25 23:52:00* Test Item Value Reference Range Interpretation Comme nts RDW (test code = RDW) 13.4 11.5-14.5 [place] 155513-08-25 23:52:00* Test Item Value Reference Range Interpretation Comme nts Platelet (test code = Platelet) 255 133-450 [facility] SpringsOnzwyoiHNJRNVNIFX6958-15-74 23:52:00* Test Item Value Reference Range Interpretation Comme nts MPV (test code = MPV) 7.9 7.4-10.4 [facility] SpringsAfndstyRPXPIODQPR6399-89-69 23:52:00* Test Item Value Reference Range Interpretation Comme nts ACT (TEG) Rapid (test code = ACT (TEG) Rapid) 97 s 86-118 [facility] SpringsWlszzmqDPMXNONBMF3634-35-87 23:52:00* Test Item Value Reference Range Interpretation Comme nts Split [place] Rapid (test code = [place] Rapid) 0.4 min [place] 155513-08-25 23:52:00* Test Item Value Reference Range Interpretation Comme nts R-time Rapid (test code = R- time Rapid) 0.5 min 0.4-0.7 [facility] SpringsLaherouSAFYTAUSAZ8959-46-29 23:52:00* Test Item Value Reference Range Interpretation Comme nts K-time Rapid (test code = K- time Rapid) 0.9 min 0.6-2.3 [facility] SpringsTskrqruCOESKMMHGC6921-20-65 23:52:00* Test Item Value Reference Range Interpretation Comme nts Angle Rapid (test code = Ang le Rapid) 79 degrees 64-80 [facility] SpringsUtdolauBATIIMOZGZ2474-53-07 23:52:00* Test Item Value Reference Range Interpretation Comme nts Max Amplitude Rapid (test co de = Max Amplitude Rapid) 73 mm 52-71 [facility] SpringsAfvkxshKEFHWHBOGG0380-32-53 23:52:00* Test Item Value Reference Range Interpretation Comme nts G-value Rapid (test code = G -value Rapid) 13.3 5.0-11.6 [facility] SpringsJqnlltnAWKIKIJSPJ6841-33-56 23:52:00* Test Item Value Reference Range Interpretation Comme nts Estimated % Lysis Rapid (betito t code = Estimated % Lysis Rapid) 0.6 <=7.5 [address]08-25 23:52:00* Test Item Value Reference Range Interpretation Comme nts Segs (test code = Segs) 80.6 45.0-75.0 [facility] SpringsYjisuyiUZPCMDCPMS1739-70-14 23:52:00* Test Item Value Reference Range Interpretation Comme nts Lymphocytes (test code = Lymphocytes) 12.2 20.0-40.0 [facility] SpringsGcairihXDDJWWMKUE1403-10-52 23:52:00* Test Item Value Reference Range Interpretation Comme nts Monocytes (test code = Monocytes) 6.1 2.0-12.0 [facility] SpringsSyahjspYENEQCZXZS8043-38-82 23:52:00* Test Item Value Reference Range Interpretation Comme nts Eosinophils (test code = Eosinophils) 0.6 <=4.0 [facility] SpringsTtztjytRTDAPLCGDL6513-21-56 23:52:00* Test Item Value Reference Range Interpretation Comme nts Basophils (test code = Basophils) 0.5 <=1.0 [facility] SpringsNcofzriIVSPLQBWOR4390-43-15 23:52:00* Test Item Value Reference Range Interpretation Comme nts Neutrophils # (test code = N eutrophils #) 11.3 1.5-8.1 [facility] SpringsVqjamltLJNPGYDSQI4635-38-77 23:52:00* Test Item Value Reference Range Interpretation Comme nts Lymphocytes # (test code = L ymphocytes #) 1.7 1.0-5.5 [facility] SpringsJrdxyrdBXKJNHAZSC2564-22-08 23:52:00* Test Item Value Reference Range Interpretation Comme nts Monocytes # (test code = Monocytes #) 0.9 <=0.8 [facility] SpringsMnxyjfrPWWLFFDUKI0235-02-03 23:52:00* Test Item Value Reference Range Interpretation Comme nts Eosinophils # (test code = E osinophils #) 0.1 <=0.5 [facility] SpringsOwvunmmVHUIHCIFIY9678-95-13 23:52:00* Test Item Value Reference Range Interpretation Comme nts Basophils # (test code = Basophils #) 0.1 <=0.2 [facility]LwfdauwZYJCOFEIQI6538-75-90 23:52:00* Test Item Value Reference Range Interpretation Comme nts Ethanol Lvl (test code = Ethanol Lvl) no gt [place] 13976023-08-25 23:52:00* Test Item Value Reference Range Interpretation Comme nts Etoh (%) (test code = Etoh (%)) no gt [facility]2023-08-25 23:52:00* Test Item Value Reference Range Interpretation Comme nts Glucose Lvl (test code = Glucose Lvl) 90 70-99 [facility]2023-08-25 23:52:00* Test Item Value Reference Range Interpretation Comme nts BUN (test code = BUN) 7 7-22 [facility]2023-08-25 23:52:00* Test Item Value Reference Range Interpretation Comme nts Creatinine Lvl (test code = Creatinine Lvl) 0.40 0.50-1.40 [place] 744013-08-25 23:52:00* Test Item Value Reference Range Interpretation Comme nts Sodium Lvl (test code = Sodium Lvl) 139 135-145 [facility]2023-08-25 23:52:00* Test Item Value Reference Range Interpretation Comme nts Potassium Lvl (test code = P otassium Lvl) 3.5 3.5-5.1 [facility]2023-08-25 23:52:00* Test Item Value Reference Range Interpretation Comme nts Chloride Lvl (test code = Chloride Lvl) 109 95-109 [facility]2023-08-25 23:52:00* Test Item Value Reference Range Interpretation Comme nts CO2 (test code = CO2) 21 24-32 [facility]2023-08-25 23:52:00* Test Item Value Reference Range Interpretation Comme nts AGAP (test code = AGAP) 12.5 10.0-20.0 [facility]2023-08-25 23:52:00* Test Item Value Reference Range Interpretation Comme nts Calcium Lvl (test code = Calcium Lvl) 8.3 8.5-10.5 [facility]2023-08-25 23:52:00* Test Item Value Reference Range Interpretation Comme nts eGFR (test code = eGFR) 134 [facility]2023-08-25 23:52:00* Test Item Value Reference Range Interpretation Comme nts Lactic Acid Lvl (test code = Lactic Acid Lvl) 1.0 0.5-2.2 [place] 151483-08-25 23:52:00* Test Item Value Reference Range Interpretation Comme nts Glucose Lvl (test code = Glucose Lvl) 90 70-99 [facility]icsSlgrhahMICJEXQXN1913-09-01 23:52:00* Test Item Value Reference Range Interpretation Comme nts BUN (test code = BUN) 7 7-22 [facility] ClinicsRiuqzszMFQRLMNFB4134-36-35 23:52:00* Test Item Value Reference Range Interpretation Comme nts Creatinine Lvl (test code = Creatinine Lvl) 0.40 0.50-1.40 [facility]icsCmlsycpWPODRBVMX5649-08-98 23:52:00* Test Item Value Reference Range Interpretation Comme nts Sodium Lvl (test code = Sodium Lvl) 139 135-145 [facility] ClinicsHytaertNUPLNEVHX4187-08-15 23:52:00* Test Item Value Reference Range Interpretation Comme nts Potassium Lvl (test code = P otassium Lvl) 3.5 3.5-5.1 [facility]icsRuvascwNQCMGBHBL4176-14-15 23:52:00* Test Item Value Reference Range Interpretation Comme nts Chloride Lvl (test code = Chloride Lvl) 109 95-109 [facility]icsAiazzldHQQJSHWBP8438-63-35 23:52:00* Test Item Value Reference Range Interpretation Comme nts CO2 (test code = CO2) 21 24-32 [facility]icsOmyjlhrVMFUQGKTI9000-89-37 23:52:00* Test Item Value Reference Range Interpretation Comme nts AGAP (test code = AGAP) 12.5 10.0-20.0 [facility]icsHkekbnyRROVVLJSH7106-77-22 23:52:00* Test Item Value Reference Range Interpretation Comme nts Calcium Lvl (test code = Calcium Lvl) 8.3 8.5-10.5 [facility]icsMkmjswkHDMJBEPWI5397-98-05 23:52:00* Test Item Value Reference Range Interpretation Comme nts eGFR (test code = eGFR) 134 [facility] ClinicsZtkqphrZKZNYIAZO4647-27-92 23:52:00* Test Item Value Reference Range Interpretation Comme nts Ethanol Lvl (test code = Ethanol Lvl) no gt [facility]icsCahdfbmBJUJYPQIK2987-44-43 23:52:00* Test Item Value Reference Range Interpretation Comme nts Etoh (%) (test code = Etoh (%)) no gt [facility]icsTyvgxjqBJMMSEPGV4337-43-65 23:52:00* Test Item Value Reference Range Interpretation Comme nts Lactic Acid Lvl (test code = Lactic Acid Lvl) 1.0 0.5-2.2 [facility]icsFbwaglgGATPGAVFR2263-69-51 23:52:00* Test Item Value Reference Range Interpretation Comme nts S Preg (test code = S Preg) Positive *NA*(10/06/22 6:52 PM) [facility]icsWffwcdfJCPWXSUKG9092-38-25 23:52:00* Test Item Value Reference Range Interpretation Comme nts pH Joseph (test code = pH Joseph) 7.37 1 7.28-7.42 [facility]icsHqsribpQNMPQOERD7028-40-78 23:52:00* Test Item Value Reference Range Interpretation Comme nts pCO2 Joseph (test code = pCO2 Joseph) 36 38-52 [facility]icsWithlstSVTSKVHMV0508-42-90 23:52:00* Test Item Value Reference Range Interpretation Comme nts pO2 Joseph (test code = pO2 Joseph) 79 20-49 [facility] ClinicsBhfhibdLEDCJIIKT3461-00-35 23:52:00* Test Item Value Reference Range Interpretation Comme nts HCO3 Joseph (test code = HCO3 Joseph) 21 22-26 [facility]icsCsxdoghVYZFKFVQS7560-57-58 23:52:00* Test Item Value Reference Range Interpretation Comme nts BE Joseph (test code = BE Joseph) -4 -2-2 [facility]icsMxfefdpDFKWKDKDL0369-33-38 23:52:00* Test Item Value Reference Range Interpretation Comme nts O2 Sat Joseph (calc) (test code = O2 Sat Joseph (calc)) 95.2 40.0-70.0 [facility]icsYwxtmpwBZODZISLN0602-28-95 23:52:00* Test Item Value Reference Range Interpretation Comme nts Temp Joseph (test code = Temp Joseph) 37.0 [place] 85444023-08-25 23:52:00* Test Item Value Reference Range Interpretation Comme nts S Preg (test code = S Preg) Positive *NA*(10/06/22 6:52 PM) [facility] SpringsEdlvjeaMTHCISXPMZ9699-07-95 23:52:00* Test Item Value Reference Range Interpretation Comme nts WBC X 10x3 (test code = WBC X 10x3) 14.1 3.7-10.4 [facility] SpringsSnnrbaxLNEPDLCSGJ3053-03-77 23:52:00* Test Item Value Reference Range Interpretation Comme nts RBC X 10x6 (test code = RBC X 10x6) 3.76 4.20-5.40 [facility] SpringsCidossfWEORUGLKSZ2440-59-55 23:52:00* Test Item Value Reference Range Interpretation Comme nts Hgb (test code = Hgb) 11.2 12.0-16.0 [facility] SpringsAfykyenXKTHTEBOXR7821-10-11 23:52:00* Test Item Value Reference Range Interpretation Comme nts Hct (test code = Hct) 32.9 36.0-48.0 [facility] SpringsBqxjyyiTOMVWOVMCH2732-63-01 23:52:00* Test Item Value Reference Range Interpretation Comme nts MCV (test code = MCV) 87.6 80.0-98.0 [facility] SpringsIxbxeblVZHEFFRJTE8426-78-59 23:52:00* Test Item Value Reference Range Interpretation Comme nts MCH (test code = MCH) 29.9 pg 27.0-31.0 [facility] SpringsDyoruykQSVHIYQXZY2758-11-11 23:52:00* Test Item Value Reference Range Interpretation Comme nts MCHC (test code = MCHC) 34.1 32.0-36.0 [facility] SpringsQydgccjFZLJFEWVEB7740-48-53 23:52:00* Test Item Value Reference Range Interpretation Comme nts RDW (test code = RDW) 13.4 11.5-14.5 [facility] SpringsLmzobfuYJFFXARCXL5328-49-23 23:52:00* Test Item Value Reference Range Interpretation Comme nts Platelet (test code = Platelet) 255 133-450 [facility] SpringsRvgbybfRFZODYUIAA7869-16-20 23:52:00* Test Item Value Reference Range Interpretation Comme nts MPV (test code = MPV) 7.9 7.4-10.4 [facility] SpringsKhjbizmQZUQCSQFRV2172-23-64 23:52:00* Test Item Value Reference Range Interpretation Comme nts ACT (TEG) Rapid (test code = ACT (TEG) Rapid) 97 s 86-118 [facility] SpringsZfuyjuwQONCYPOJYO9812-33-12 23:52:00* Test Item Value Reference Range Interpretation Comme nts [place] Rapid (test code = [place] Rapid) 0.4 min [facility] SpringsKumqkooGMCWIABGTA9048-52-39 23:52:00* Test Item Value Reference Range Interpretation Comme nts R-time Rapid (test code = R- time Rapid) 0.5 min 0.4-0.7 [place] 155513-08-25 23:52:00* Test Item Value Reference Range Interpretation Comme nts K-time Rapid (test code = K- time Rapid) 0.9 min 0.6-2.3 [facility] SpringsOpaxfdiOYWIYMGQEH7061-47-27 23:52:00* Test Item Value Reference Range Interpretation Comme nts Angle Rapid (test code = Ang le Rapid) 79 degrees 64-80 [facility] SpringsSwwibmqOTSDSLTEDB8262-26-89 23:52:00* Test Item Value Reference Range Interpretation Comme nts Max Amplitude Rapid (test co de = Max Amplitude Rapid) 73 mm 52-71 [facility] SpringsNtefigpIFSLMCQMHQ5295-71-44 23:52:00* Test Item Value Reference Range Interpretation Comme nts G-value Rapid (test code = G -value Rapid) 13.3 5.0-11.6 [place] [address]-08-25 23:52:00* Test Item Value Reference Range Interpretation Comme nts Estimated % Lysis Rapid (betito t code = Estimated % Lysis Rapid) 0.6 <=7.5 [facility] SpringsAwleamtZLPKSKKCAV7959-04-74 23:52:00* Test Item Value Reference Range Interpretation Comme nts Segs (test code = Segs) 80.6 45.0-75.0 [place] 155513-08-25 23:52:00* Test Item Value Reference Range Interpretation Comme nts Lymphocytes (test code = Lymphocytes) 12.2 20.0-40.0 [place] 155513-08-25 23:52:00* Test Item Value Reference Range Interpretation Comme nts Monocytes (test code = Monocytes) 6.1 2.0-12.0 [place] [address]-08-25 23:52:00* Test Item Value Reference Range Interpretation Comme nts Eosinophils (test code = Eosinophils) 0.6 <=4.0 [place] [address]-08-25 23:52:00* Test Item Value Reference Range Interpretation Comme nts Basophils (test code = Basophils) 0.5 <=1.0 [place] [address]-08-25 23:52:00* Test Item Value Reference Range Interpretation Comme nts Neutrophils # (test code = N eutrophils #) 11.3 1.5-8.1 [facility] SpringsVbsouysGDWQAFSSGZ3474-17-17 23:52:00* Test Item Value Reference Range Interpretation Comme nts Lymphocytes # (test code = L ymphocytes #) 1.7 1.0-5.5 [facility] SpringsVydlweuUUVIQRMZOD8770-86-35 23:52:00* Test Item Value Reference Range Interpretation Comme nts Monocytes # (test code = Monocytes #) 0.9 <=0.8 [place] 155513-08-25 23:52:00* Test Item Value Reference Range Interpretation Comme nts Eosinophils # (test code = E osinophils #) 0.1 <=0.5 [facility] SpringsEreuplsSJYRBUNXGN4967-62-53 23:52:00* Test Item Value Reference Range Interpretation Comme nts Basophils # (test code = Basophils #) 0.1 <=0.2 [facility] SpringsYpgsskhKZUBUMJTBT4899-13-61 23:52:00* Test Item Value Reference Range Interpretation Comme nts WBC X 10x3 (test code = WBC X 10x3) 14.1 3.7-10.4 [facility] SpringsAtjqpxzWMZDONWIWR6442-04-43 23:52:00* Test Item Value Reference Range Interpretation Comme nts RBC X 10x6 (test code = RBC X 10x6) 3.76 4.20-5.40 [facility] SpringsJtkelzaUNENRZMYEB3217-87-99 23:52:00* Test Item Value Reference Range Interpretation Comme nts Hgb (test code = Hgb) 11.2 12.0-16.0 [place] 155513-08-25 23:52:00* Test Item Value Reference Range Interpretation Comme nts Hct (test code = Hct) 32.9 36.0-48.0 [facility] SpringsYhzlvbeQTQZQHLUIO9708-44-79 23:52:00* Test Item Value Reference Range Interpretation Comme nts MCV (test code = MCV) 87.6 80.0-98.0 [facility] SpringsBcawsydDGKJMSDQKK6863-35-50 23:52:00* Test Item Value Reference Range Interpretation Comme nts MCH (test code = MCH) 29.9 pg 27.0-31.0 [facility] SpringsWlwxrkgJJQYTYVICZ6992-41-55 23:52:00* Test Item Value Reference Range Interpretation Comme nts MCHC (test code = MCHC) 34.1 32.0-36.0 [facility] SpringsNcqjtauJGJPBZNTHS6229-95-12 23:52:00* Test Item Value Reference Range Interpretation Comme nts RDW (test code = RDW) 13.4 11.5-14.5 [place] 155513-08-25 23:52:00* Test Item Value Reference Range Interpretation Comme nts Platelet (test code = Platelet) 255 133-450 [facility] SpringsIijnzdgOGTHBXCMIA9198-26-25 23:52:00* Test Item Value Reference Range Interpretation Comme nts MPV (test code = MPV) 7.9 7.4-10.4 [place] [address]-08-25 23:52:00* Test Item Value Reference Range Interpretation Comme nts ACT (TEG) Rapid (test code = ACT (TEG) Rapid) 97 s 86-118 [facility] SpringsPgeieexDNPOHUWBRN4339-37-94 23:52:00* Test Item Value Reference Range Interpretation Comme nts [place] Rapid (test code = [place] Rapid) 0.4 min [place] 155513-08-25 23:52:00* Test Item Value Reference Range Interpretation Comme nts R-time Rapid (test code = R- time Rapid) 0.5 min 0.4-0.7 [place] [address]-08-25 23:52:00* Test Item Value Reference Range Interpretation Comme nts K-time Rapid (test code = K- time Rapid) 0.9 min 0.6-2.3 [facility] SpringsIabozxaZQKHRMBEKT6038-78-16 23:52:00* Test Item Value Reference Range Interpretation Comme nts Angle Rapid (test code = Ang le Rapid) 79 degrees 64-80 [facility] SpringsPkbzxalSPFKMWZGAT4607-16-68 23:52:00* Test Item Value Reference Range Interpretation Comme nts Max Amplitude Rapid (test co de = Max Amplitude Rapid) 73 mm 52-71 [place] 155513-08-25 23:52:00* Test Item Value Reference Range Interpretation Comme nts G-value Rapid (test code = G -value Rapid) 13.3 5.0-11.6 [place] 155513-08-25 23:52:00* Test Item Value Reference Range Interpretation Comme nts Estimated % Lysis Rapid (betito t code = Estimated % Lysis Rapid) 0.6 <=7.5 [facility]RmunmzaLEKDKPKHBI7086-81-23 23:52:00* Test Item Value Reference Range Interpretation Comme nts Segs (test code = Segs) 80.6 45.0-75.0 [facility] SpringsYbamzedAKAITMPWIF9675-34-65 23:52:00* Test Item Value Reference Range Interpretation Comme nts Lymphocytes (test code = Lymphocytes) 12.2 20.0-40.0 [facility] SpringsYehknzuFXGTQQNBVS3143-38-63 23:52:00* Test Item Value Reference Range Interpretation Comme nts Monocytes (test code = Monocytes) 6.1 2.0-12.0 [facility] SpringsBpikuskOSMXHRGPWL2775-15-61 23:52:00* Test Item Value Reference Range Interpretation Comme nts Eosinophils (test code = Eosinophils) 0.6 <=4.0 [facility] SpringsBvoixpjOKJGFTSGTO6797-47-33 23:52:00* Test Item Value Reference Range Interpretation Comme nts Basophils (test code = Basophils) 0.5 <=1.0 [facility] SpringsXgltdubEVHTBGOMSN4204-48-34 23:52:00* Test Item Value Reference Range Interpretation Comme nts Neutrophils # (test code = N eutrophils #) 11.3 1.5-8.1 [facility]NwsuwlpIHIBYFLQAO9431-94-37 23:52:00* Test Item Value Reference Range Interpretation Comme nts Lymphocytes # (test code = L ymphocytes #) 1.7 1.0-5.5 [facility] SpringsNgyvygsBSBAMREKTD1615-81-38 23:52:00* Test Item Value Reference Range Interpretation Comme nts Monocytes # (test code = Monocytes #) 0.9 <=0.8 [facility] HospitalQtmtpsfCRQVDIOPXI3361-83-73 23:52:00* Test Item Value Reference Range Interpretation Comme nts Eosinophils # (test code = E osinophils #) 0.1 <=0.5 [facility] SpringsQxsuukkRLMZEJHQVR0297-23-14 23:52:00* Test Item Value Reference Range Interpretation Comme nts Basophils # (test code = Basophils #) 0.1 <=0.2 [facility] CenterDmqsvcwKRFANBVEWB9324-54-28 23:52:00* Test Item Value Reference Range Interpretation Comme nts Ethanol Lvl (test code = Ethanol Lvl) no gt [facility]BlqauzxJUHJDXRTNO9296-22-30 23:52:00* Test Item Value Reference Range Interpretation Comme nts Etoh (%) (test code = Etoh (%)) no gt [facility]2023-08-25 23:52:00* Test Item Value Reference Range Interpretation Comme nts Glucose Lvl (test code = Glucose Lvl) 90 70-99 [facility]2023-08-25 23:52:00* Test Item Value Reference Range Interpretation Comme nts BUN (test code = BUN) 7 7-22 [facility]2023-08-25 23:52:00* Test Item Value Reference Range Interpretation Comme nts Creatinine Lvl (test code = Creatinine Lvl) 0.40 0.50-1.40 [facility]2023-08-25 23:52:00* Test Item Value Reference Range Interpretation Comme nts Sodium Lvl (test code = Sodium Lvl) 139 135-145 [facility]2023-08-25 23:52:00* Test Item Value Reference Range Interpretation Comme nts Potassium Lvl (test code = P otassium Lvl) 3.5 3.5-5.1 [facility]2023-08-25 23:52:00* Test Item Value Reference Range Interpretation Comme nts Chloride Lvl (test code = Chloride Lvl) 109 95-109 [facility]2023-08-25 23:52:00* Test Item Value Reference Range Interpretation Comme nts CO2 (test code = CO2) 21 24-32 [facility]2023-08-25 23:52:00* Test Item Value Reference Range Interpretation Comme nts AGAP (test code = AGAP) 12.5 10.0-20.0 [facility]2023-08-25 23:52:00* Test Item Value Reference Range Interpretation Comme nts Calcium Lvl (test code = Calcium Lvl) 8.3 8.5-10.5 [facility]2023-08-25 23:52:00* Test Item Value Reference Range Interpretation Comme nts eGFR (test code = eGFR) 134 [facility]2023-08-25 23:52:00* Test Item Value Reference Range Interpretation Comme nts Lactic Acid Lvl (test code = Lactic Acid Lvl) 1.0 0.5-2.2 [facility]icsGfnaealGUJCRLXQH8160-23-51 23:52:00* Test Item Value Reference Range Interpretation Comme nts Glucose Lvl (test code = Glucose Lvl) 90 70-99 [facility]icsSwimwfyQGMVCPHFN3127-64-78 23:52:00* Test Item Value Reference Range Interpretation Comme nts BUN (test code = BUN) 7 7-22 [facility]icsTulnnqfTCZWBEWSA7946-37-76 23:52:00* Test Item Value Reference Range Interpretation Comme nts Creatinine Lvl (test code = Creatinine Lvl) 0.40 0.50-1.40 [facility]icsJxcezeeJSXSAQDRY8926-37-28 23:52:00* Test Item Value Reference Range Interpretation Comme nts Sodium Lvl (test code = Sodium Lvl) 139 135-145 [facility] ClinicsNxusenxLFQFIRTCS9533-35-66 23:52:00* Test Item Value Reference Range Interpretation Comme nts Potassium Lvl (test code = P otassium Lvl) 3.5 3.5-5.1 [facility]icsTlwlhtqAWQHEMKKD1779-21-45 23:52:00* Test Item Value Reference Range Interpretation Comme nts Chloride Lvl (test code = Chloride Lvl) 109 95-109 [facility] ClinicsNeuakzrKLXVVRFTT0957-72-50 23:52:00* Test Item Value Reference Range Interpretation Comme nts CO2 (test code = CO2) 21 24-32 [facility]icsWsdxzwcLFUIZYZAE6320-80-36 23:52:00* Test Item Value Reference Range Interpretation Comme nts AGAP (test code = AGAP) 12.5 10.0-20.0 [facility] ClinicsWzhovadWQKQIETWI4434-47-66 23:52:00* Test Item Value Reference Range Interpretation Comme nts Calcium Lvl (test code = Calcium Lvl) 8.3 8.5-10.5 [facility]icsMshoizlSLGAJCOJL2531-43-36 23:52:00* Test Item Value Reference Range Interpretation Comme nts eGFR (test code = eGFR) 134 [facility] ClinicsUobcvpyPFQDOLUHF7309-45-72 23:52:00* Test Item Value Reference Range Interpretation Comme nts Ethanol Lvl (test code = Ethanol Lvl) no gt [facility] ClinicsNoafinfKIJARMOKV1107-28-16 23:52:00* Test Item Value Reference Range Interpretation Comme nts Etoh (%) (test code = Etoh (%)) no gt [facility]icsMkcyvlmKHOQNEGIH3343-79-14 23:52:00* Test Item Value Reference Range Interpretation Comme nts Lactic Acid Lvl (test code = Lactic Acid Lvl) 1.0 0.5-2.2 [facility] ClinicsHkivcqbSQDXMHUVP4715-85-88 23:52:00* Test Item Value Reference Range Interpretation Comme nts S Preg (test code = S Preg) Positive *NA*(10/06/22 6:52 PM) [facility]icsGosnvwaIBTWUWNCW8051-27-95 23:52:00* Test Item Value Reference Range Interpretation Comme nts pH Joseph (test code = pH Joseph) 7.37 1 7.28-7.42 [facility]icsWrclexyYERTSKOUG6692-93-60 23:52:00* Test Item Value Reference Range Interpretation Comme nts pCO2 Joseph (test code = pCO2 Joseph) 36 38-52 [facility]icsOohgzrkUUFLNXTYF8197-10-70 23:52:00* Test Item Value Reference Range Interpretation Comme nts pO2 Joseph (test code = pO2 Joseph) 79 20-49 [facility]icsNeyrqliEKQMSFCPH9012-94-02 23:52:00* Test Item Value Reference Range Interpretation Comme nts HCO3 Joseph (test code = HCO3 Joseph) 21 22-26 [facility]icsVsbjwooOEFXSHQGP5945-80-23 23:52:00* Test Item Value Reference Range Interpretation Comme nts BE Joseph (test code = BE Joseph) -4 -2-2 [facility]icsFshyrcbWXDPAEACO6635-69-30 23:52:00* Test Item Value Reference Range Interpretation Comme nts O2 Sat Joseph (calc) (test code = O2 Sat Joseph (calc)) 95.2 40.0-70.0 [facility]icsKepkihoSDLIBCVMH5381-06-22 23:52:00* Test Item Value Reference Range Interpretation Comme nts Temp Joseph (test code = Temp Joseph) 37.0 [facility] CenterDkhcexcXHCREHWWJSSNN8127-06-42 23:52:00* Test Item Value Reference Range Interpretation Comme nts S Preg (test code = S Preg) Positive *NA*(10/06/22 6:52 PM) [facility] SpringsCdcazafMDOOEPNXIZ7473-24-09 23:52:00* Test Item Value Reference Range Interpretation Comme nts WBC X 10x3 (test code = WBC X 10x3) 14.1 3.7-10.4 [facility] SpringsBqwrxjaNOTCZTNBEW5121-30-18 23:52:00* Test Item Value Reference Range Interpretation Comme nts RBC X 10x6 (test code = RBC X 10x6) 3.76 4.20-5.40 [facility] SpringsTfmocokQIFUDLUZLX5557-90-43 23:52:00* Test Item Value Reference Range Interpretation Comme nts Hgb (test code = Hgb) 11.2 12.0-16.0 [facility] SpringsVlnwbetUUMLXCZPIQ0605-03-59 23:52:00* Test Item Value Reference Range Interpretation Comme nts Hct (test code = Hct) 32.9 36.0-48.0 [facility] SpringsBqeemjuIYYUECKVBT8075-07-00 23:52:00* Test Item Value Reference Range Interpretation Comme nts MCV (test code = MCV) 87.6 80.0-98.0 [facility] SpringsKcwmnnvWDUMTLJXXV8542-26-59 23:52:00* Test Item Value Reference Range Interpretation Comme nts MCH (test code = MCH) 29.9 pg 27.0-31.0 [facility] SpringsGahrlmiBQDWUYYESU7143-94-96 23:52:00* Test Item Value Reference Range Interpretation Comme nts MCHC (test code = MCHC) 34.1 32.0-36.0 [facility] SpringsQcmuceiDSIRPFQABN2651-87-04 23:52:00* Test Item Value Reference Range Interpretation Comme nts RDW (test code = RDW) 13.4 11.5-14.5 [facility] SpringsIvcthupIOGNLPPNNT8119-37-07 23:52:00* Test Item Value Reference Range Interpretation Comme nts Platelet (test code = Platelet) 255 133-450 [facility] SpringsRyqkexcMCYKXAZZAL9575-79-80 23:52:00* Test Item Value Reference Range Interpretation Comme nts MPV (test code = MPV) 7.9 7.4-10.4 [facility] SpringsRcjnzfcXLTXUGYSUF1462-89-01 23:52:00* Test Item Value Reference Range Interpretation Comme nts ACT (TEG) Rapid (test code = ACT (TEG) Rapid) 97 s 86-118 [facility] SpringsRszvapdRNYKNGCTQT4122-53-27 23:52:00* Test Item Value Reference Range Interpretation Comme nts Split [place] Rapid (test code = Split [place] Rapid) 0.4 min [facility] SpringsVsrlzimCZKMXIKFDA8173-16-25 23:52:00* Test Item Value Reference Range Interpretation Comme nts R-time Rapid (test code = R- time Rapid) 0.5 min 0.4-0.7 [place] 155513-08-25 23:52:00* Test Item Value Reference Range Interpretation Comme nts K-time Rapid (test code = K- time Rapid) 0.9 min 0.6-2.3 [facility] SpringsGslehsoDAQMWRBRVP1260-32-55 23:52:00* Test Item Value Reference Range Interpretation Comme nts Angle Rapid (test code = Ang le Rapid) 79 degrees 64-80 [facility] SpringsUzovghjVSGOKVAXPL3151-68-09 23:52:00* Test Item Value Reference Range Interpretation Comme nts Max Amplitude Rapid (test co de = Max Amplitude Rapid) 73 mm 52-71 [facility] SpringsHyipnoyOHYXOMTBCK3456-28-38 23:52:00* Test Item Value Reference Range Interpretation Comme nts G-value Rapid (test code = G -value Rapid) 13.3 5.0-11.6 [place] [address]-08-25 23:52:00* Test Item Value Reference Range Interpretation Comme nts Estimated % Lysis Rapid (betito t code = Estimated % Lysis Rapid) 0.6 <=7.5 [place] [address]-08-25 23:52:00* Test Item Value Reference Range Interpretation Comme nts Segs (test code = Segs) 80.6 45.0-75.0 [facility] SpringsUhjvqqkHHDKEOUHCB9841-34-10 23:52:00* Test Item Value Reference Range Interpretation Comme nts Lymphocytes (test code = Lymphocytes) 12.2 20.0-40.0 [place] [address]-08-25 23:52:00* Test Item Value Reference Range Interpretation Comme nts Monocytes (test code = Monocytes) 6.1 2.0-12.0 [place] [address]-08-25 23:52:00* Test Item Value Reference Range Interpretation Comme nts Eosinophils (test code = Eosinophils) 0.6 <=4.0 [place] [address]-08-25 23:52:00* Test Item Value Reference Range Interpretation Comme nts Basophils (test code = Basophils) 0.5 <=1.0 [place] [address]-08-25 23:52:00* Test Item Value Reference Range Interpretation Comme nts Neutrophils # (test code = N eutrophils #) 11.3 1.5-8.1 [facility] SpringsHhhtnrkWGSRGKUFYA0104-15-70 23:52:00* Test Item Value Reference Range Interpretation Comme nts Lymphocytes # (test code = L ymphocytes #) 1.7 1.0-5.5 [facility] SpringsFlkpuplBEOIUSMHCA9534-77-47 23:52:00* Test Item Value Reference Range Interpretation Comme nts Monocytes # (test code = Monocytes #) 0.9 <=0.8 [place] 155513-08-25 23:52:00* Test Item Value Reference Range Interpretation Comme nts Eosinophils # (test code = E osinophils #) 0.1 <=0.5 [place] 155513-08-25 23:52:00* Test Item Value Reference Range Interpretation Comme nts Basophils # (test code = Basophils #) 0.1 <=0.2 [place] 155513-08-25 23:52:00* Test Item Value Reference Range Interpretation Comme nts WBC X 10x3 (test code = WBC X 10x3) 14.1 3.7-10.4 [facility] SpringsFbjzbnyZJCKMERFZW4048-06-14 23:52:00* Test Item Value Reference Range Interpretation Comme nts RBC X 10x6 (test code = RBC X 10x6) 3.76 4.20-5.40 [facility] SpringsFptvkliRZYOJSWGPI7004-39-62 23:52:00* Test Item Value Reference Range Interpretation Comme nts Hgb (test code = Hgb) 11.2 12.0-16.0 [place] [address]-08-25 23:52:00* Test Item Value Reference Range Interpretation Comme nts Hct (test code = Hct) 32.9 36.0-48.0 [facility] SpringsJgwerfcMKCLYDIQFA0152-08-60 23:52:00* Test Item Value Reference Range Interpretation Comme nts MCV (test code = MCV) 87.6 80.0-98.0 [place] [address]-08-25 23:52:00* Test Item Value Reference Range Interpretation Comme nts MCH (test code = MCH) 29.9 pg 27.0-31.0 [place] 155513-08-25 23:52:00* Test Item Value Reference Range Interpretation Comme nts MCHC (test code = MCHC) 34.1 32.0-36.0 [facility] SpringsIkqrulgPXXSPVLNZI3766-78-23 23:52:00* Test Item Value Reference Range Interpretation Comme nts RDW (test code = RDW) 13.4 11.5-14.5 [facility] SpringsAoujcqlYOVXDONQSM1275-09-24 23:52:00* Test Item Value Reference Range Interpretation Comme nts Platelet (test code = Platelet) 255 133-450 [facility] SpringsIihbojcFHXWZUDEDO1309-66-06 23:52:00* Test Item Value Reference Range Interpretation Comme nts MPV (test code = MPV) 7.9 7.4-10.4 [place] 155513-08-25 23:52:00* Test Item Value Reference Range Interpretation Comme nts ACT (TEG) Rapid (test code = ACT (TEG) Rapid) 97 s 86-118 [facility] SpringsJicunhwXGLTZDZTVQ7394-05-84 23:52:00* Test Item Value Reference Range Interpretation Comme nts Split Point Rapid (test code = Split [place] Rapid) 0.4 min [facility] SpringsCkanjgyZPEVOZHIQS4231-71-11 23:52:00* Test Item Value Reference Range Interpretation Comme nts R-time Rapid (test code = R- time Rapid) 0.5 min 0.4-0.7 [facility] SpringsRfllykkYZKEKYBWKZ0624-11-57 23:52:00* Test Item Value Reference Range Interpretation Comme nts K-time Rapid (test code = K- time Rapid) 0.9 min 0.6-2.3 [facility] SpringsNuprgvfBBPXVGBNYG0988-02-36 23:52:00* Test Item Value Reference Range Interpretation Comme nts Angle Rapid (test code = Ang le Rapid) 79 degrees 64-80 [facility] SpringsKgzyhaiXNVTOUDZXZ2249-36-33 23:52:00* Test Item Value Reference Range Interpretation Comme nts Max Amplitude Rapid (test co de = Max Amplitude Rapid) 73 mm 52-71 [facility] SpringsCmndbzyKYGVPJUUSC2660-41-68 23:52:00* Test Item Value Reference Range Interpretation Comme nts G-value Rapid (test code = G -value Rapid) 13.3 5.0-11.6 [facility] SpringsSnoqvxrTZEZHCAAMS6682-53-52 23:52:00* Test Item Value Reference Range Interpretation Comme nts Estimated % Lysis Rapid (betito t code = Estimated % Lysis Rapid) 0.6 <=7.5 [facility] SpringsNwzlcmeBXDOEJEPJD5179-85-85 23:52:00* Test Item Value Reference Range Interpretation Comme nts Segs (test code = Segs) 80.6 45.0-75.0 [facility] SpringsBhfhwixJTWLPOWKVZ5339-64-60 23:52:00* Test Item Value Reference Range Interpretation Comme nts Lymphocytes (test code = Lymphocytes) 12.2 20.0-40.0 [facility] SpringsPzcxrobZJHBDUGNKB3901-57-79 23:52:00* Test Item Value Reference Range Interpretation Comme nts Monocytes (test code = Monocytes) 6.1 2.0-12.0 [facility] SpringsCscvtdpZQLGZFAGKP3607-71-78 23:52:00* Test Item Value Reference Range Interpretation Comme nts Eosinophils (test code = Eosinophils) 0.6 <=4.0 [facility] SpringsIfzuruqDHGXVRHESL6752-78-60 23:52:00* Test Item Value Reference Range Interpretation Comme nts Basophils (test code = Basophils) 0.5 <=1.0 [facility] SpringsRabuzjoLVPIKHIKPA5897-02-01 23:52:00* Test Item Value Reference Range Interpretation Comme nts Neutrophils # (test code = N eutrophils #) 11.3 1.5-8.1 [facility] SpringsKymanoxWLTCFEDWHQ7320-10-74 23:52:00* Test Item Value Reference Range Interpretation Comme nts Lymphocytes # (test code = L ymphocytes #) 1.7 1.0-5.5 [facility] SpringsLhycuywWCKTTVAXUV0190-63-68 23:52:00* Test Item Value Reference Range Interpretation Comme nts Monocytes # (test code = Monocytes #) 0.9 <=0.8 [facility] SpringsSgguzicNCWFJOOFKT6348-62-74 23:52:00* Test Item Value Reference Range Interpretation Comme nts Eosinophils # (test code = E osinophils #) 0.1 <=0.5 [facility] SpringsKsveowaJZURFBKIIM8960-85-88 23:52:00* Test Item Value Reference Range Interpretation Comme nts Basophils # (test code = Basophils #) 0.1 <=0.2 [facility] CenterMavxbyiKHBENLVTNJ6882-56-05 23:52:00* Test Item Value Reference Range Interpretation Comme nts Ethanol Lvl (test code = Ethanol Lvl) no gt [facility] CenterDmipaniHOQKRFVZMX4243-15-58 23:52:00* Test Item Value Reference Range Interpretation Comme nts Etoh (%) (test code = Etoh (%)) no gt [facility]2023-08-25 23:52:00* Test Item Value Reference Range Interpretation Comme nts Glucose Lvl (test code = Glucose Lvl) 90 70-99 [facility]2023-08-25 23:52:00* Test Item Value Reference Range Interpretation Comme nts BUN (test code = BUN) 09-02 [facility]2023-08-25 23:52:00* Test Item Value Reference Range Interpretation Comme nts Glucose Lvl (test code = Glucose Lvl) - [facility]2023-08-25 23:52:00* Test Item Value Reference Range Interpretation Comme nts BUN (test code = BUN) 09-02 [facility]2023-08-25 23:52:00* Test Item Value Reference Range Interpretation Comme nts Creatinine Lvl (test code = Creatinine Lvl) 0.40 0.50-1.40 [facility]2023-08-25 23:52:00* Test Item Value Reference Range Interpretation Comme nts Sodium Lvl (test code = Sodium Lvl) 139 135-145 [facility]2023-08-25 23:52:00* Test Item Value Reference Range Interpretation Comme nts Creatinine Lvl (test code = Creatinine Lvl) 0.40 0.50-1.40 [facility]2023-08-25 23:52:00* Test Item Value Reference Range Interpretation Comme nts Potassium Lvl (test code = P otassium Lvl) 3.5 3.5-5.1 [facility]2023-08-25 23:52:00* Test Item Value Reference Range Interpretation Comme nts Chloride Lvl (test code = Chloride Lvl) 109 95-109 [facility]2023-08-25 23:52:00* Test Item Value Reference Range Interpretation Comme nts CO2 (test code = CO2) 21 24-32 [facility]2023-08-25 23:52:00* Test Item Value Reference Range Interpretation Comme nts AGAP (test code = AGAP) 12.5 10.0-20.0 [facility]2023-08-25 23:52:00* Test Item Value Reference Range Interpretation Comme nts Calcium Lvl (test code = Calcium Lvl) 8.3 8.5-10.5 [facility]2023-08-25 23:52:00* Test Item Value Reference Range Interpretation Comme nts eGFR (test code = eGFR) 134 [facility]2023-08-25 23:52:00* Test Item Value Reference Range Interpretation Comme nts Lactic Acid Lvl (test code = Lactic Acid Lvl) 1.0 0.5-2.2 [place] [address]-08-25 23:52:00* Test Item Value Reference Range Interpretation Comme nts Glucose Lvl (test code = Glucose Lvl) 90 70-99 [place] [address]-08-25 23:52:00* Test Item Value Reference Range Interpretation Comme nts BUN (test code = BUN) 7 7-22 [place] [address]-08-25 23:52:00* Test Item Value Reference Range Interpretation Comme nts Creatinine Lvl (test code = Creatinine Lvl) 0.40 0.50-1.40 [facility]2023-08-25 23:52:00* Test Item Value Reference Range Interpretation Comme nts Sodium Lvl (test code = Sodium Lvl) 139 135-145 [place] [address]-08-25 23:52:00* Test Item Value Reference Range Interpretation Comme nts Sodium Lvl (test code = Sodium Lvl) 139 135-145 [place] [address]-08-25 23:52:00* Test Item Value Reference Range Interpretation Comme nts Potassium Lvl (test code = P otassium Lvl) 3.5 3.5-5.1 [place] [address]-08-25 23:52:00* Test Item Value Reference Range Interpretation Comme nts Chloride Lvl (test code = Chloride Lvl) 109 95-109 [place] 151483-08-25 23:52:00* Test Item Value Reference Range Interpretation Comme nts CO2 (test code = CO2) 21 24-32 [place] [address]-08-25 23:52:00* Test Item Value Reference Range Interpretation Comme nts AGAP (test code = AGAP) 12.5 10.0-20.0 [facility]icsBhsddohZMJCADNIB3266-63-76 23:52:00* Test Item Value Reference Range Interpretation Comme nts Calcium Lvl (test code = Calcium Lvl) 8.3 8.5-10.5 [facility]icsUsrumkfOPLAKEWHJ0230-81-17 23:52:00* Test Item Value Reference Range Interpretation Comme nts eGFR (test code = eGFR) 134 [facility]icsYmxscfwQDSSHPVRS6258-13-40 23:52:00* Test Item Value Reference Range Interpretation Comme nts Ethanol Lvl (test code = Ethanol Lvl) no gt [facility]icsLpnoetfRSNMITHSV3154-92-23 23:52:00* Test Item Value Reference Range Interpretation Comme nts Etoh (%) (test code = Etoh (%)) no gt [facility]icsDtfbjujGZPNBSDTU9092-25-11 23:52:00* Test Item Value Reference Range Interpretation Comme nts Lactic Acid Lvl (test code = Lactic Acid Lvl) 1.0 0.5-2.2 [facility]2023-08-25 23:52:00* Test Item Value Reference Range Interpretation Comme nts Potassium Lvl (test code = P otassium Lvl) 3.5 3.5-5.1 [facility]icsUgipegwUFWMAZTAM6067-48-05 23:52:00* Test Item Value Reference Range Interpretation Comme nts S Preg (test code = S Preg) Positive *NA*(10/06/22 6:52 PM) [facility]icsExxpyltNISJINLFS0325-39-76 23:52:00* Test Item Value Reference Range Interpretation Comme nts pH Joseph (test code = pH Joseph) 7.37 1 7.28-7.42 [facility]icsCnsaktzJUPZMMFMU3007-58-29 23:52:00* Test Item Value Reference Range Interpretation Comme nts pCO2 Joseph (test code = pCO2 Joseph) 36 38-52 [facility]icsWjgbburMYLFMLOYT7201-31-55 23:52:00* Test Item Value Reference Range Interpretation Comme nts pO2 Joseph (test code = pO2 Joseph) 79 20-49 [facility]icsAjfatpoTDNEWACPQ9436-58-49 23:52:00* Test Item Value Reference Range Interpretation Comme nts HCO3 Joseph (test code = HCO3 Joseph) 21 22-26 [place] 151483-08-25 23:52:00* Test Item Value Reference Range Interpretation Comme nts BE Joseph (test code = BE Joseph) -4 -2-2 [facility]icsOxynseiGUUDOZVQT4915-62-54 23:52:00* Test Item Value Reference Range Interpretation Comme nts O2 Sat Joseph (calc) (test code = O2 Sat Joseph (calc)) 95.2 40.0-70.0 [facility]icsQsjjgasJKWJZSGSO6478-64-61 23:52:00* Test Item Value Reference Range Interpretation Comme nts Temp Joseph (test code = Temp Joseph) 37.0 [facility]QwxiuuxIVKVHNBIXRCPR2514-01-63 23:52:00* Test Item Value Reference Range Interpretation Comme nts S Preg (test code = S Preg) Positive *NA*(10/06/22 6:52 PM) [facility] SpringsRalzmrzXCEVEQYHLH7722-65-91 23:52:00* Test Item Value Reference Range Interpretation Comme nts WBC X 10x3 (test code = WBC X 10x3) 14.1 3.7-10.4 [facility]2023-08-25 23:52:00* Test Item Value Reference Range Interpretation Comme nts Chloride Lvl (test code = Chloride Lvl) 109 95-109 [facility] SpringsQpvugoeEVQLHVDRRU7289-07-70 23:52:00* Test Item Value Reference Range Interpretation Comme nts RBC X 10x6 (test code = RBC X 10x6) 3.76 4.20-5.40 [facility] SpringsImwniklKPONUKXFZU1435-38-70 23:52:00* Test Item Value Reference Range Interpretation Comme nts Hgb (test code = Hgb) 11.2 12.0-16.0 [facility] SpringsBfwjkpwUJJOMBWXRU7430-44-77 23:52:00* Test Item Value Reference Range Interpretation Comme nts Hct (test code = Hct) 32.9 36.0-48.0 [facility] SpringsIprjcuaAYMUXMVEVN4254-73-61 23:52:00* Test Item Value Reference Range Interpretation Comme nts MCV (test code = MCV) 87.6 80.0-98.0 [facility] SpringsWogzywfNRYTAFCVQK6931-50-35 23:52:00* Test Item Value Reference Range Interpretation Comme nts MCH (test code = MCH) 29.9 pg 27.0-31.0 [place] 155513-08-25 23:52:00* Test Item Value Reference Range Interpretation Comme nts MCHC (test code = MCHC) 34.1 32.0-36.0 [place] 155513-08-25 23:52:00* Test Item Value Reference Range Interpretation Comme nts RDW (test code = RDW) 13.4 11.5-14.5 [place] [address]-08-25 23:52:00* Test Item Value Reference Range Interpretation Comme nts Platelet (test code = Platelet) 255 133-450 [facility] SpringsXcqapcsAHIKRIPGLZ9716-75-81 23:52:00* Test Item Value Reference Range Interpretation Comme nts MPV (test code = MPV) 7.9 7.4-10.4 [place] [address]-08-25 23:52:00* Test Item Value Reference Range Interpretation Comme nts ACT (TEG) Rapid (test code = ACT (TEG) Rapid) 97 s 86-118 [facility]2023-08-25 23:52:00* Test Item Value Reference Range Interpretation Comme nts CO2 (test code = CO2) 21 24-32 [facility] SpringsPqqsupjPYHBDMFHDI3987-29-12 23:52:00* Test Item Value Reference Range Interpretation Comme nts Split [place] Rapid (test code = [place] Rapid) 0.4 min [place] [address]-08-25 23:52:00* Test Item Value Reference Range Interpretation Comme nts R-time Rapid (test code = R- time Rapid) 0.5 min 0.4-0.7 [place] [address]-08-25 23:52:00* Test Item Value Reference Range Interpretation Comme nts K-time Rapid (test code = K- time Rapid) 0.9 min 0.6-2.3 [place] 155513-08-25 23:52:00* Test Item Value Reference Range Interpretation Comme nts Angle Rapid (test code = Ang le Rapid) 79 degrees 64-80 [facility] SpringsMnidsmqDJDFUDCZHE1189-30-38 23:52:00* Test Item Value Reference Range Interpretation Comme nts Max Amplitude Rapid (test co de = Max Amplitude Rapid) 73 mm 52-71 [facility] SpringsJehesweEBBVKYQBJT7364-58-07 23:52:00* Test Item Value Reference Range Interpretation Comme nts G-value Rapid (test code = G -value Rapid) 13.3 5.0-11.6 [facility] SpringsArobaxiGPVQNXUWNP5679-37-61 23:52:00* Test Item Value Reference Range Interpretation Comme nts Estimated % Lysis Rapid (betito t code = Estimated % Lysis Rapid) 0.6 <=7.5 [place] 155513-08-25 23:52:00* Test Item Value Reference Range Interpretation Comme nts Segs (test code = Segs) 80.6 45.0-75.0 [place] 155513-08-25 23:52:00* Test Item Value Reference Range Interpretation Comme nts Lymphocytes (test code = Lymphocytes) 12.2 20.0-40.0 [place] 155513-08-25 23:52:00* Test Item Value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 Item Value Reference Range Interpretation Comme nts U Opiate Scr (test code = U Opiate Scr) Negative *NA*(10/06/22 6:12 PM) [facility] ClinicsGvlhbehRJBNUKODZ8115-66-45 23:12:00* Test Item Value Reference Range Interpretation Comme nts U Phencyclidine Scr (test code = U Phencyclidine Scr) Negative *NA*(10/06/22 6:12 PM) [facility] ClinicsBpluwzcGYVNDKCBI4242-51-60 23:12:00* Test Item Value Reference Range Interpretation Comme nts UDS Note (test code = UDS Note) See Note 2(10/06/22 6:12 PM) [facility] [facility] [id number] 23:12:00* Test Item Value Reference Range Interpretation Comme nts U Amph Scr (test code = U Amph Scr) Positive *ABN*(10/06/22 6:12 PM) [facility] [id number] 23:12:00* Test Item Value Reference Range Interpretation Comme nts U Alesia Scr (test code = U Alesia Scr) Negative *NA*(10/06/22 6:12 PM) [facility] [id number] 23:12:00* Test Item Value Reference Range Interpretation Comme nts U Benzodiaz Scr (test code = U Benzodiaz Scr) Negative *NA*(10/06/22 6:12 PM) [facility] [id number] 23:12:00* Test Item Value Reference Range Interpretation Comme nts U Cocaine Scr (test code = U Cocaine Scr) Negative *NA*(10/06/22 6:12 PM) [facility] [id number] 23:12:00* Test Item Value Reference Range Interpretation Comme nts U Cannab Scr (test code = U Cannab Scr) Positive *ABN*(10/06/22 6:12 PM) [facility] [id number] 23:12:00* Test Item Value Reference Range Interpretation Comme nts U Opiate Scr (test code = U Opiate Scr) Negative *NA*(10/06/22 6:12 PM) [facility] [id number] 23:12:00* Test Item Value Reference Range Interpretation Comme nts U Phencyclidine Scr (test code = U Phencyclidine Scr) Negative *NA*(10/06/22 6:12 PM) [facility] [id number] 23:12:00* Test Item Value Reference Range Interpretation Comme nts UDS Note (test code = UDS Note) See Note 3(10/06/22 6:12 PM) [facility] C[id number] 23:12:00* Test Item Value Reference Range Interpretation Comme nts S Preg (test code = S Preg) Positive *NA*(10/06/22 6:12 PM) [facility] [id number] 23:12:00* Test Item Value Reference Range Interpretation Comme nts Coronavirus (COVID-19) FRANCO (test code = Coronavirus (COVID-19) FRANCO) Not Detected 7(10/06/22 6:12 PM) [id number] 23:12:00* Test Item Value Reference Range Interpretation Comme nts Coronavirus (COVID-19) FRANCO (test code = Coronavirus (COVID-19) FRANCO) Not Detected 11(10/06/22 6:12 PM) [facility] C[id number] 23:12:00* Test Item Value Reference Range Interpretation Comme nts Ethanol Lvl (test code = Ethanol Lvl) no gt [facility] [id number] 23:12:00* Test Item Value Reference Range Interpretation Comme nts Etoh (%) (test code = Etoh (%)) no gt [facility] [id number] 23:12:00* Test Item Value Reference Range Interpretation Comme nts UA Color (test code = UA Color) Yellow (10/06/22 6:12 PM) [facility] AND [id number] 23:12:00* Test Item Value Reference Range Interpretation Comme nts UA Turbidity (test code = UA Turbidity) Marked *ABN*(10/06/22 6:12 PM) [facility] AND [id number] 23:12:00* Test Item Value Reference Range Interpretation Comme nts UA Spec Grav (test code = UA Spec Grav) 1.025 1 [facility] AND [id number] 23:12:00* Test Item Value Reference Range Interpretation Comme nts UA pH (test code = UA pH) 5.0 1 5.0-8.0 [facility] AND [id number] 23:12:00* Test Item Value Reference Range Interpretation Comme nts UA Protein (test code = UA Protein) 100 mg/dL [facility] AND [id number] 23:12:00* Test Item Value Reference Range Interpretation Comme nts UA Glucose (test code = UA Glucose) Negative mg/dL [facility] AND [id number] 23:12:00* Test Item Value Reference Range Interpretation Comme nts UA Ketones (test code = UA Ketones) Negative mg/dL [facility] AND [id number] 23:12:00* Test Item Value Reference Range Interpretation Comme nts UA Bili (test code = UA Bili) Negative *NA*(10/06/22 6:12 PM) [facility] AND [id number] 23:12:00* Test Item Value Reference Range Interpretation Comme nts UA Blood (test code = UA Blood) Large *ABN*(10/06/22 6:12 PM) [facility] [id number] 23:12:00* Test Item Value Reference Range Interpretation Comme nts UA Urobilinogen (test code = UA Urobilinogen) 2.0 0.1-1.0 [facility] [id number] 23:12:00* Test Item Value Reference Range Interpretation Comme nts UA Nitrite (test code = UA Nitrite) Negative (10/06/22 6:12 PM) [facility] [id number] 23:12:00* Test Item Value Reference Range Interpretation Comme nts UA Leuk Est (test code = UA Leuk Est) Negative (10/06/22 6:12 PM) [facility] [id number] 23:12:00* Test Item Value Reference Range Interpretation Comme nts UA Ascorbic Acid (test code = UA Ascorbic Acid) Negative 6*NA*(10/06/22 6:12 PM) [facility] [id number] 23:12:00* Test Item Value Reference Range Interpretation Comme nts UA Sq Epi (test code = UA Sq Epi) Many /LPF [facility] [id number] 23:12:00* Test Item Value Reference Range Interpretation Comme nts UA WBC (test code = UA WBC) 1 <=5 [facility] [id number] 23:12:00* Test Item Value Reference Range Interpretation Comme nts UA RBC (test code = UA RBC) no gt <=2 [facility] [id number] 23:12:00* Test Item Value Reference Range Interpretation Comme nts UA Bacteria (test code = UA Bacteria) Few /HPF [facility] [id number] 23:12:00* Test Item Value Reference Range Interpretation Comme nts UA Mucus (test code = UA Mucus) Few /LPF [facility] [id number] 23:12:00* Test Item Value Reference Range Interpretation Comme nts UA CaOx [place]orena (test code = UA CaOx [place]) Occasional /HPF [facility] [id number] 23:12:00* Test Item Value Reference Range Interpretation Comme nts UA Hyal Cast (test code = UA Hyal Cast) 9 <=2 [facility] [id number] 23:12:00* Test Item Value Reference Range Interpretation Comme nts UA Color (test code = UA Color) Yellow (10/06/22 6:12 PM) [facility] AND [id number] 23:12:00* Test Item Value Reference Range Interpretation Comme nts UA Turbidity (test code = UA Turbidity) Marked *ABN*(10/06/22 6:12 PM) [facility] AND [id number] 23:12:00* Test Item Value Reference Range Interpretation Comme nts UA Spec Grav (test code = UA Spec Grav) 1.025 1 [facility] AND [id number] 23:12:00* Test Item Value Reference Range Interpretation Comme nts UA pH (test code = UA pH) 5.0 1 5.0-8.0 [facility] AND [id number] 23:12:00* Test Item Value Reference Range Interpretation Comme nts UA Protein (test code = UA Protein) 100 mg/dL [facility] AND [id number] 23:12:00* Test Item Value Reference Range Interpretation Comme nts UA Glucose (test code = UA Glucose) Negative mg/dL [facility] AND [id number] 23:12:00* Test Item Value Reference Range Interpretation Comme nts UA Ketones (test code = UA Ketones) Negative mg/dL [facility] AND [id number] 23:12:00* Test Item Value Reference Range Interpretation Comme nts UA Bili (test code = UA Bili) Negative *NA*(10/06/22 6:12 PM) [facility] AND [id number] 23:12:00* Test Item Value Reference Range Interpretation Comme nts UA Blood (test code = UA Blood) Large *ABN*(10/06/22 6:12 PM) [facility] AND [id number] 23:12:00* Test Item Value Reference Range Interpretation Comme nts UA Urobilinogen (test code = UA Urobilinogen) 2.0 0.1-1.0 [facility] AND [id number] 23:12:00* Test Item Value Reference Range Interpretation Comme nts UA Nitrite (test code = UA Nitrite) Negative (10/06/22 6:12 PM) [facility] [id number] 23:12:00* Test Item Value Reference Range Interpretation Comme nts UA Leuk Est (test code = UA Leuk Est) Negative (10/06/22 6:12 PM) [facility] [id number] 23:12:00* Test Item Value Reference Range Interpretation Comme nts UA Ascorbic Acid (test code = UA Ascorbic Acid) Negative 10*NA*(10/06/22 6:12 PM) [facility] [id number] 23:12:00* Test Item Value Reference Range Interpretation Comme nts UA Sq Epi (test code = UA Sq Epi) Many /LPF [facility] [id number] 23:12:00* Test Item Value Reference Range Interpretation Comme nts UA WBC (test code = UA WBC) 1 <=5 [facility] [id number] 23:12:00* Test Item Value Reference Range Interpretation Comme nts UA RBC (test code = UA RBC) no gt <=2 [facility] [id number] 23:12:00* Test Item Value Reference Range Interpretation Comme nts UA Bacteria (test code = UA Bacteria) Few /HPF [facility] [id number] 23:12:00* Test Item Value Reference Range Interpretation Comme nts UA Mucus (test code = UA Mucus) Few /LPF [facility] [id number] 23:12:00* Test Item Value Reference Range Interpretation Comme nts UA CaOx [place]ore[place] (test code = UA CaOx [place]) Occasional /HPF [facility] [id number] 23:12:00* Test Item Value Reference Range Interpretation Comme nts UA Hyal Cast (test code = UA Hyal Cast) 9 <=2 [facility] [id number] 23:12:00* Test Item Value Reference Range Interpretation Comme nts Glucose Lvl (test code = Glucose Lvl) 106 70-99 [facility] [id number] 23:12:00* Test Item Value Reference Range Interpretation Comme nts BUN (test code = BUN) 7 7-22 [facility] [id number] 23:12:00* Test Item Value Reference Range Interpretation Comme nts Creatinine Lvl (test code = Creatinine Lvl) 0.59 0.50-1.40 [facility]2023-08-25 23:12:00* Test Item Value Reference Range Interpretation Comme nts Sodium Lvl (test code = Sodium Lvl) 140 135-145 [facility]2023-08-25 23:12:00* Test Item Value Reference Range Interpretation Comme nts Potassium Lvl (test code = P otassium Lvl) 3.7 3.5-5.1 [facility]2023-08-25 23:12:00* Test Item Value Reference Range Interpretation Comme nts Chloride Lvl (test code = Chloride Lvl) 109 95-109 [facility]2023-08-25 23:12:00* Test Item Value Reference Range Interpretation Comme nts CO2 (test code = CO2) 19 24-32 [facility]2023-08-25 23:12:00* Test Item Value Reference Range Interpretation Comme nts Calcium Lvl (test code = Calcium Lvl) 9.0 8.5-10.5 [facility]2023-08-25 23:12:00* Test Item Value Reference Range Interpretation Comme nts AGAP (test code = AGAP) 15.7 10.0-20.0 [facility]2023-08-25 23:12:00* Test Item Value Reference Range Interpretation Comme nts eGFR (test code = eGFR) 70 [id number] 23:12:00* Test Item Value Reference Range Interpretation Comme nts U Amph Scr (test code = U Amph Scr) Positive *ABN*(10/06/22 6:12 PM) [id number] 23:12:00* Test Item Value Reference Range Interpretation Comme nts U Alesia Scr (test code = U Alesia Scr) Negative *NA*(10/06/22 6:12 PM) [id number] 23:12:00* Test Item Value Reference Range Interpretation Comme nts U Benzodiaz Scr (test code = U Benzodiaz Scr) Negative *NA*(10/06/22 6:12 PM) [id number] 23:12:00* Test Item Value Reference Range Interpretation Comme nts U Cocaine Scr (test code = U Cocaine Scr) Negative *NA*(10/06/22 6:12 PM) [facility] [id number] 23:12:00* Test Item Value Reference Range Interpretation Comme nts U Cannab Scr (test code = U Cannab Scr) Positive *ABN*(10/06/22 6:12 PM) [facility] [id number] 23:12:00* Test Item Value Reference Range Interpretation Comme nts U Opiate Scr (test code = U Opiate Scr) Negative *NA*(10/06/22 6:12 PM) [facility] Hospi[id number] 23:12:00* Test Item Value Reference Range Interpretation Comme nts U Phencyclidine Scr (test code = U Phencyclidine Scr) Negative *NA*(10/06/22 6:12 PM) [facility] [id number] 23:12:00* Test Item Value Reference Range Interpretation Comme nts UDS Note (test code = UDS Note) See Note 2(10/06/22 6:12 PM) [facility] [id number] 23:12:00* Test Item Value Reference Range Interpretation Comme nts U Amph Scr (test code = U Amph Scr) Positive *ABN*(10/06/22 6:12 PM) [facility] [id number] 23:12:00* Test Item Value Reference Range Interpretation Comme nts U Alesia Scr (test code = U Alesia Scr) Negative *NA*(10/06/22 6:12 PM) [facility] [id number] 23:12:00* Test Item Value Reference Range Interpretation Comme nts U Benzodiaz Scr (test code = U Benzodiaz Scr) Negative *NA*(10/06/22 6:12 PM) [facility] [id number] 23:12:00* Test Item Value Reference Range Interpretation Comme nts U Cocaine Scr (test code = U Cocaine Scr) Negative *NA*(10/06/22 6:12 PM) [facility] [id number] 23:12:00* Test Item Value Reference Range Interpretation Comme nts U Cannab Scr (test code = U Cannab Scr) Positive *ABN*(10/06/22 6:12 PM) [facility] [id number] 23:12:00* Test Item Value Reference Range Interpretation Comme nts U Opiate Scr (test code = U Opiate Scr) Negative *NA*(10/06/22 6:12 PM) [facility] [id number] 23:12:00* Test Item Value Reference Range Interpretation Comme nts U Phencyclidine Scr (test code = U Phencyclidine Scr) Negative *NA*(10/06/22 6:12 PM) [facility] [id number] 23:12:00* Test Item Value Reference Range Interpretation Comme nts UDS Note (test code = UDS Note) See Note 3(10/06/22 6:12 PM) [facility] Ce[id number] 23:12:00* Test Item Value Reference Range Interpretation Comme nts S Preg (test code = S Preg) Positive *NA*(10/06/22 6:12 PM) [facility] [id number] 23:12:00* Test Item Value Reference Range Interpretation Comme nts Coronavirus (COVID-19) FRANCO (test code = Coronavirus (COVID-19) FRANCO) Not Detected 7(10/06/22 6:12 PM) [facility] [id number] 23:12:00* Test Item Value Reference Range Interpretation Comme nts Coronavirus (COVID-19) FRANCO (test code = Coronavirus (COVID-19) FRANCO) Not Detected 11(10/06/22 6:12 PM) [facility] H[id number] 23:12:00* Test Item Value Reference Range Interpretation Comme nts Ethanol Lvl (test code = Ethanol Lvl) no gt [facility] HospitalKypodlmSOIEDTOTWF4620-69-01 23:12:00* Test Item Value Reference Range Interpretation Comme nts Etoh (%) (test code = Etoh (%)) no gt [facility] [id number] 23:12:00* Test Item Value Reference Range Interpretation Comme nts UA Color (test code = UA Color) Yellow (10/06/22 6:12 PM) [facility] [id number] 23:12:00* Test Item Value Reference Range Interpretation Comme nts UA Turbidity (test code = UA Turbidity) Marked *ABN*(10/06/22 6:12 PM) [facility] AND [id number] 23:12:00* Test Item Value Reference Range Interpretation Comme nts UA Spec Grav (test code = UA Spec Grav) 1.025 1 [facility] AND [id number] 23:12:00* Test Item Value Reference Range Interpretation Comme nts UA pH (test code = UA pH) 5.0 1 5.0-8.0 [facility] AND [id number] 23:12:00* Test Item Value Reference Range Interpretation Comme nts UA Protein (test code = UA Protein) 100 mg/dL [facility] AND [id number] 23:12:00* Test Item Value Reference Range Interpretation Comme nts UA Glucose (test code = UA Glucose) Negative mg/dL [facility] AND [id number] 23:12:00* Test Item Value Reference Range Interpretation Comme nts UA Ketones (test code = UA Ketones) Negative mg/dL [facility] AND [id number] 23:12:00* Test Item Value Reference Range Interpretation Comme nts UA Bili (test code = UA Bili) Negative *NA*(10/06/22 6:12 PM) [facility] AND [id number] 23:12:00* Test Item Value Reference Range Interpretation Comme nts UA Blood (test code = UA Blood) Large *ABN*(10/06/22 6:12 PM) [facility] AND [id number] 23:12:00* Test Item Value Reference Range Interpretation Comme nts UA Urobilinogen (test code = UA Urobilinogen) 2.0 0.1-1.0 [facility] AND [id number] 23:12:00* Test Item Value Reference Range Interpretation Comme nts UA Nitrite (test code = UA Nitrite) Negative (10/06/22 6:12 PM) [facility] [id number] 23:12:00* Test Item Value Reference Range Interpretation Comme nts UA Leuk Est (test code = UA Leuk Est) Negative (10/06/22 6:12 PM) [facility] [id number] 23:12:00* Test Item Value Reference Range Interpretation Comme nts UA Ascorbic Acid (test code = UA Ascorbic Acid) Negative 6*NA*(10/06/22 6:12 PM) [facility] [id number] 23:12:00* Test Item Value Reference Range Interpretation Comme nts UA Sq Epi (test code = UA Sq Epi) Many /LPF [facility] [id number] 23:12:00* Test Item Value Reference Range Interpretation Comme nts UA WBC (test code = UA WBC) 1 <=5 [facility] [id number] 23:12:00* Test Item Value Reference Range Interpretation Comme nts UA RBC (test code = UA RBC) no gt <=2 [facility] [id number] 23:12:00* Test Item Value Reference Range Interpretation Comme nts UA Bacteria (test code = UA Bacteria) Few /HPF [facility] [id number] 23:12:00* Test Item Value Reference Range Interpretation Comme nts UA Mucus (test code = UA Mucus) Few /LPF [facility] [id number] 23:12:00* Test Item Value Reference Range Interpretation Comme nts UA CaOx [place]ore[place] (test code = UA CaOx [place]) Occasional /HPF [facility] [id number] 23:12:00* Test Item Value Reference Range Interpretation Comme nts UA Hyal Cast (test code = UA Hyal Cast) 9 <=2 [facility] [id number] 23:12:00* Test Item Value Reference Range Interpretation Comme nts UA Color (test code = UA Color) Yellow (10/06/22 6:12 PM) [facility] [id number] 23:12:00* Test Item Value Reference Range Interpretation Comme nts UA Turbidity (test code = UA Turbidity) Marked *ABN*(10/06/22 6:12 PM) [facility] [id number] 23:12:00* Test Item Value Reference Range Interpretation Comme nts UA Spec Grav (test code = UA Spec Grav) 1.025 1 [facility] [id number] 23:12:00* Test Item Value Reference Range Interpretation Comme nts UA pH (test code = UA pH) 5.0 1 5.0-8.0 [facility] AND [id number] 23:12:00* Test Item Value Reference Range Interpretation Comme nts UA Protein (test code = UA Protein) 100 mg/dL [facility] AND [id number] 23:12:00* Test Item Value Reference Range Interpretation Comme nts UA Glucose (test code = UA Glucose) Negative mg/dL [facility] AND [id number] 23:12:00* Test Item Value Reference Range Interpretation Comme nts UA Ketones (test code = UA Ketones) Negative mg/dL [facility] AND [id number] 23:12:00* Test Item Value Reference Range Interpretation Comme nts UA Bili (test code = UA Bili) Negative *NA*(10/06/22 6:12 PM) [facility] AND [id number] 23:12:00* Test Item Value Reference Range Interpretation Comme nts UA Blood (test code = UA Blood) Large *ABN*(10/06/22 6:12 PM) [facility] AND [id number] 23:12:00* Test Item Value Reference Range Interpretation Comme nts UA Urobilinogen (test code = UA Urobilinogen) 2.0 0.1-1.0 [facility] AND [id number] 23:12:00* Test Item Value Reference Range Interpretation Comme nts UA Nitrite (test code = UA Nitrite) Negative (10/06/22 6:12 PM) [facility] AND [id number] 23:12:00* Test Item Value Reference Range Interpretation Comme nts UA Leuk Est (test code = UA Leuk Est) Negative (10/06/22 6:12 PM) [facility] AND [id number] 23:12:00* Test Item Value Reference Range Interpretation Comme nts UA Ascorbic Acid (test code = UA Ascorbic Acid) Negative 10*NA*(10/06/22 6:12 PM) [facility] AND [id number] 23:12:00* Test Item Value Reference Range Interpretation Comme nts UA Sq Epi (test code = UA Sq Epi) Many /LPF [facility] [id number] 23:12:00* Test Item Value Reference Range Interpretation Comme nts UA WBC (test code = UA WBC) 1 <=5 [facility] [id number] 23:12:00* Test Item Value Reference Range Interpretation Comme nts UA RBC (test code = UA RBC) no gt <=2 [facility] AND [id number] 23:12:00* Test Item Value Reference Range Interpretation Comme nts UA Bacteria (test code = UA Bacteria) Few /HPF [facility] AND [id number] 23:12:00* Test Item Value Reference Range Interpretation Comme nts UA Mucus (test code = UA Mucus) Few /LPF [facility] AND [id number] 23:12:00* Test Item Value Reference Range Interpretation Comme nts UA CaOx [place] (test code = UA CaOx [place]) Occasional /HPF [facility] AND [id number] 23:12:00* Test Item Value Reference Range Interpretation Comme nts UA Hyal Cast (test code = UA Hyal Cast) 9 <=2 [facility]2023-08-25 23:12:00* Test Item Value Reference Range Interpretation Comme nts Glucose Lvl (test code = Glucose Lvl) 106 70-99 [facility]2023-08-25 23:12:00* Test Item Value Reference Range Interpretation Comme nts BUN (test code = BUN) 7 7-22 [facility]2023-08-25 23:12:00* Test Item Value Reference Range Interpretation Comme nts Creatinine Lvl (test code = Creatinine Lvl) 0.59 0.50-1.40 [facility]2023-08-25 23:12:00* Test Item Value Reference Range Interpretation Comme nts Sodium Lvl (test code = Sodium Lvl) 140 135-145 [facility]2023-08-25 23:12:00* Test Item Value Reference Range Interpretation Comme nts Potassium Lvl (test code = P otassium Lvl) 3.7 3.5-5.1 [facility]2023-08-25 23:12:00* Test Item Value Reference Range Interpretation Comme nts Chloride Lvl (test code = Chloride Lvl) 109 95-109 [facility]2023-08-25 23:12:00* Test Item Value Reference Range Interpretation Comme nts CO2 (test code = CO2) 19 24-32 [facility]2023-08-25 23:12:00* Test Item Value Reference Range Interpretation Comme nts Calcium Lvl (test code = Calcium Lvl) 9.0 8.5-10.5 [facility]2023-08-25 23:12:00* Test Item Value Reference Range Interpretation Comme nts AGAP (test code = AGAP) 15.7 10.0-20.0 [facility] [place]2023-08-25 23:12:00* Test Item Value Reference Range Interpretation Comme nts eGFR (test code = eGFR) 70 [id number] 23:12:00* Test Item Value Reference Range Interpretation Comme nts U Amph Scr (test code = U Amph Scr) Positive *ABN*(10/06/22 6:12 PM) [facility]icsJrvntzcQFXRGCCRI6832-09-83 23:12:00* Test Item Value Reference Range Interpretation Comme nts U Alesia Scr (test code = U Alesia Scr) Negative *NA*(10/06/22 6:12 PM) [facility][id number] 23:12:00* Test Item Value Reference Range Interpretation Comme nts U Benzodiaz Scr (test code = U Benzodiaz Scr) Negative *NA*(10/06/22 6:12 PM) [facility][id number] 23:12:00* Test Item Value Reference Range Interpretation Comme nts U Cocaine Scr (test code = U Cocaine Scr) Negative *NA*(10/06/22 6:12 PM) [facility][id number] 23:12:00* Test Item Value Reference Range Interpretation Comme nts U Cannab Scr (test code = U Cannab Scr) Positive *ABN*(10/06/22 6:12 PM) [facility]icsJaxocdaNWCXSGVND0787-05-05 23:12:00* Test Item Value Reference Range Interpretation Comme nts U Opiate Scr (test code = U Opiate Scr) Negative *NA*(10/06/22 6:12 PM) [facility]icsNhwskrcTFFGENSHE8708-15-16 23:12:00* Test Item Value Reference Range Interpretation Comme nts U Phencyclidine Scr (test code = U Phencyclidine Scr) Negative *NA*(10/06/22 6:12 PM) [facility]tqwyBXCUZAHLZ2957-06-62 23:12:00* Test Item Value Reference Range Interpretation Comme nts UDS Note (test code = UDS Note) See Note 2(10/06/22 6:12 PM) [facility] [id number] 23:12:00* Test Item Value Reference Range Interpretation Comme nts U Amph Scr (test code = U Amph Scr) Positive *ABN*(10/06/22 6:12 PM) [facility] [id number] 23:12:00* Test Item Value Reference Range Interpretation Comme nts U Alesia Scr (test code = U Alesia Scr) Negative *NA*(10/06/22 6:12 PM) [facility] [id number] 23:12:00* Test Item Value Reference Range Interpretation Comme nts U Benzodiaz Scr (test code = U Benzodiaz Scr) Negative *NA*(10/06/22 6:12 PM) [facility] [id number] 23:12:00* Test Item Value Reference Range Interpretation Comme nts U Cocaine Scr (test code = U Cocaine Scr) Negative *NA*(10/06/22 6:12 PM) [facility] [id number] 23:12:00* Test Item Value Reference Range Interpretation Comme nts U Cannab Scr (test code = U Cannab Scr) Positive *ABN*(10/06/22 6:12 PM) [facility] [id number] 23:12:00* Test Item Value Reference Range Interpretation Comme nts U Opiate Scr (test code = U Opiate Scr) Negative *NA*(10/06/22 6:12 PM) [facility] [id number] 23:12:00* Test Item Value Reference Range Interpretation Comme nts U Phencyclidine Scr (test code = U Phencyclidine Scr) Negative *NA*(10/06/22 6:12 PM) [facility] [id number] 23:12:00* Test Item Value Reference Range Interpretation Comme nts UDS Note (test code = UDS Note) See Note 3(10/06/22 6:12 PM) [place] [id number] 23:12:00* Test Item Value Reference Range Interpretation Comme nts S Preg (test code = S Preg) Positive *NA*(10/06/22 6:12 PM) [facility] HospitalNsmlkedNNLXNHXGFM6330-30-59 23:12:00* Test Item Value Reference Range Interpretation Comme nts Coronavirus (COVID-19) FRANCO (test code = Coronavirus (COVID-19) FRANCO) Not Detected 7(10/06/22 6:12 PM) [facility] HospitalXhxpueeTMUOMZARDR0064-81-73 23:12:00* Test Item Value Reference Range Interpretation Comme nts Coronavirus (COVID-19) FRANCO (test code = Coronavirus (COVID-19) FRANCO) Not Detected 11(10/06/22 6:12 PM) [facility] HospitalJrbilqsQKZVZTDQJJ8641-57-44 23:12:00* Test Item Value Reference Range Interpretation Comme nts Ethanol Lvl (test code = Ethanol Lvl) [facility] gt [facility] CenterOcohzoqICHDKJDDPW9033-63-70 23:12:00* Test Item Value Reference Range Interpretation Comme nts Etoh (%) (test code = Etoh (%)) no gt [facility] [id number] 23:12:00* Test Item Value Reference Range Interpretation Comme nts UA Color (test code = UA Color) Yellow (10/06/22 6:12 PM) [facility] [id number] 23:12:00* Test Item Value Reference Range Interpretation Comme nts UA Turbidity (test code = UA Turbidity) Marked *ABN*(10/06/22 6:12 PM) [facility] [id number] 23:12:00* Test Item Value Reference Range Interpretation Comme nts UA Spec Grav (test code = UA Spec Grav) 1.025 1 [facility] [id number] 23:12:00* Test Item Value Reference Range Interpretation Comme nts UA pH (test code = UA pH) 5.0 1 5.0-8.0 [facility] [id number] 23:12:00* Test Item Value Reference Range Interpretation Comme nts UA Protein (test code = UA Protein) 100 mg/dL [facility] AND [id number] 23:12:00* Test Item Value Reference Range Interpretation Comme nts UA Glucose (test code = UA Glucose) Negative mg/dL [facility] AND [id number] 23:12:00* Test Item Value Reference Range Interpretation Comme nts UA Ketones (test code = UA Ketones) Negative mg/dL [facility] AND [id number] 23:12:00* Test Item Value Reference Range Interpretation Comme nts UA Bili (test code = UA Bili) Negative *NA*(10/06/22 6:12 PM) [facility] AND [id number] 23:12:00* Test Item Value Reference Range Interpretation Comme nts UA Blood (test code = UA Blood) Large *ABN*(10/06/22 6:12 PM) [facility] AND [id number] 23:12:00* Test Item Value Reference Range Interpretation Comme nts UA Urobilinogen (test code = UA Urobilinogen) 2.0 0.1-1.0 [facility] AND [id number] 23:12:00* Test Item Value Reference Range Interpretation Comme nts UA Nitrite (test code = UA Nitrite) Negative (10/06/22 6:12 PM) [facility] AND [id number] 23:12:00* Test Item Value Reference Range Interpretation Comme nts UA Leuk Est (test code = UA Leuk Est) Negative (10/06/22 6:12 PM) [facility] AND [id number] 23:12:00* Test Item Value Reference Range Interpretation Comme nts UA Ascorbic Acid (test code = UA Ascorbic Acid) Negative 6*NA*(10/06/22 6:12 PM) [facility] AND [id number] 23:12:00* Test Item Value Reference Range Interpretation Comme nts UA Sq Epi (test code = UA Sq Epi) Many /LPF [facility] AND [id number] 23:12:00* Test Item Value Reference Range Interpretation Comme nts UA WBC (test code = UA WBC) 1 <=5 [facility] AND [id number] 23:12:00* Test Item Value Reference Range Interpretation Comme nts UA RBC (test code = UA RBC) no gt <=2 [facility] AND [id number] 23:12:00* Test Item Value Reference Range Interpretation Comme nts UA Bacteria (test code = UA Bacteria) Few /HPF [facility] [id number] 23:12:00* Test Item Value Reference Range Interpretation Comme nts UA Mucus (test code = UA Mucus) Few /LPF [facility] AND [id number] 23:12:00* Test Item Value Reference Range Interpretation Comme nts UA CaOx Lorena (test code = UA CaOx [place]ore[place]) Occasional /HPF [facility] AND [id number] 23:12:00* Test Item Value Reference Range Interpretation Comme nts UA Hyal Cast (test code = UA Hyal Cast) 9 <=2 [facility] AND [id number] 23:12:00* Test Item Value Reference Range Interpretation Comme nts UA Color (test code = UA Color) Yellow (10/06/22 6:12 PM) [facility] AND [id number] 23:12:00* Test Item Value Reference Range Interpretation Comme nts UA Turbidity (test code = UA Turbidity) Marked *ABN*(10/06/22 6:12 PM) [facility] AND [id number] 23:12:00* Test Item Value Reference Range Interpretation Comme nts UA Spec Grav (test code = UA Spec Grav) 1.025 1 [facility] AND [id number] 23:12:00* Test Item Value Reference Range Interpretation Comme nts UA pH (test code = UA pH) 5.0 1 5.0-8.0 [facility] AND [id number] 23:12:00* Test Item Value Reference Range Interpretation Comme nts UA Protein (test code = UA Protein) 100 mg/dL [facility] AND [id number] 23:12:00* Test Item Value Reference Range Interpretation Comme nts UA Glucose (test code = UA Glucose) Negative mg/dL [facility] AND [id number] 23:12:00* Test Item Value Reference Range Interpretation Comme nts UA Ketones (test code = UA Ketones) Negative mg/dL [facility] [id number] 23:12:00* Test Item Value Reference Range Interpretation Comme nts UA Bili (test code = UA Bili) Negative *NA*(10/06/22 6:12 PM) [facility] [id number] 23:12:00* Test Item Value Reference Range Interpretation Comme nts UA Blood (test code = UA Blood) Large *ABN*(10/06/22 6:12 PM) [facility] [id number] 23:12:00* Test Item Value Reference Range Interpretation Comme nts UA Urobilinogen (test code = UA Urobilinogen) 2.0 0.1-1.0 [facility] [id number] 23:12:00* Test Item Value Reference Range Interpretation Comme nts UA Nitrite (test code = UA Nitrite) Negative (10/06/22 6:12 PM) [facility] [id number] 23:12:00* Test Item Value Reference Range Interpretation Comme nts UA Leuk Est (test code = UA Leuk Est) Negative (10/06/22 6:12 PM) [facility] [id number] 23:12:00* Test Item Value Reference Range Interpretation Comme nts UA Ascorbic Acid (test code = UA Ascorbic Acid) Negative 10*NA*(10/06/22 6:12 PM) [facility] [id number] 23:12:00* Test Item Value Reference Range Interpretation Comme nts UA Sq Epi (test code = UA Sq Epi) Many /LPF [facility] [id number] 23:12:00* Test Item Value Reference Range Interpretation Comme nts UA WBC (test code = UA WBC) 1 <=5 [facility] [id number] 23:12:00* Test Item Value Reference Range Interpretation Comme nts UA RBC (test code = UA RBC) no gt <=2 [facility] [id number] 23:12:00* Test Item Value Reference Range Interpretation Comme nts UA Bacteria (test code = UA Bacteria) Few /HPF [facility] [id number] 23:12:00* Test Item Value Reference Range Interpretation Comme nts UA Mucus (test code = UA Mucus) Few /LPF [facility] AND [id number] 23:12:00* Test Item Value Reference Range Interpretation Comme nts UA CaOx [place]orena (test code = UA CaOx [place]) Occasional /HPF [facility] AND [id number] 23:12:00* Test Item Value Reference Range Interpretation Comme nts UA Hyal Cast (test code = UA Hyal Cast) 9 <=2 [facility] [place]2023-08-25 23:12:00* Test Item Value Reference Range Interpretation Comme nts Glucose Lvl (test code = Glucose Lvl) 106 70-99 [facility] [place]2023-08-25 23:12:00* Test Item Value Reference Range Interpretation Comme nts BUN (test code = BUN) 7 7-22 [facility] [place]2023-08-25 23:12:00* Test Item Value Reference Range Interpretation Comme nts Creatinine Lvl (test code = Creatinine Lvl) 0.59 0.50-1.40 [facility] [place]2023-08-25 23:12:00* Test Item Value Reference Range Interpretation Comme nts Sodium Lvl (test code = Sodium Lvl) 140 135-145 [facility] [place]2023-08-25 23:12:00* Test Item Value Reference Range Interpretation Comme nts Potassium Lvl (test code = P otassium Lvl) 3.7 3.5-5.1 [facility] [place]2023-08-25 23:12:00* Test Item Value Reference Range Interpretation Comme nts Chloride Lvl (test code = Chloride Lvl) 109 95-109 [facility] [place]2023-08-25 23:12:00* Test Item Value Reference Range Interpretation Comme nts CO2 (test code = CO2) 19 24-32 [facility] [place]2023-08-25 23:12:00* Test Item Value Reference Range Interpretation Comme nts Calcium Lvl (test code = Calcium Lvl) 9.0 8.5-10.5 [facility] [place]2023-08-25 23:12:00* Test Item Value Reference Range Interpretation Comme nts AGAP (test code = AGAP) 15.7 10.0-20.0 [facility] [place]2023-08-25 23:12:00* Test Item Value Reference Range Interpretation Comme nts eGFR (test code = eGFR) 70 [id number] 23:12:00* Test Item Value Reference Range Interpretation Comme nts U Amph Scr (test code = U Amph Scr) Positive *ABN*(10/06/22 6:12 PM) [facility]icsHflszplSUXUBKAXE0106-70-28 23:12:00* Test Item Value Reference Range Interpretation Comme nts U Alesia Scr (test code = U Alesia Scr) Negative *NA*(10/06/22 6:12 PM) [facility][id number] 23:12:00* Test Item Value Reference Range Interpretation Comme nts U Benzodiaz Scr (test code = U Benzodiaz Scr) Negative *NA*(10/06/22 6:12 PM) [id number] 23:12:00* Test Item Value Reference Range Interpretation Comme nts U Cocaine Scr (test code = U Cocaine Scr) Negative *NA*(10/06/22 6:12 PM) [facility]icsYdycidmPVCTOJDZF5224-81-28 23:12:00* Test Item Value Reference Range Interpretation Comme nts U Cannab Scr (test code = U Cannab Scr) Positive *ABN*(10/06/22 6:12 PM) [facility]icsWzcucthLQBDUUHOO5802-58-23 23:12:00* Test Item Value Reference Range Interpretation Comme nts U Opiate Scr (test code = U Opiate Scr) Negative *NA*(10/06/22 6:12 PM) [facility]icsAwlubmgLXPJHZDXE0575-98-38 23:12:00* Test Item Value Reference Range Interpretation Comme nts U Phencyclidine Scr (test code = U Phencyclidine Scr) Negative *NA*(10/06/22 6:12 PM) [facility][id number] 23:12:00* Test Item Value Reference Range Interpretation Comme nts UDS Note (test code = UDS Note) See Note 2(10/06/22 6:12 PM) [facility] [id number] 23:12:00* Test Item Value Reference Range Interpretation Comme nts U Amph Scr (test code = U Amph Scr) Positive *ABN*(10/06/22 6:12 PM) [facility] [id number] 23:12:00* Test Item Value Reference Range Interpretation Comme nts U Alesia Scr (test code = U Alesia Scr) Negative *NA*(10/06/22 6:12 PM) [facility] [id number] 23:12:00* Test Item Value Reference Range Interpretation Comme nts U Benzodiaz Scr (test code = U Benzodiaz Scr) Negative *NA*(10/06/22 6:12 PM) [facility] [id number] 23:12:00* Test Item Value Reference Range Interpretation Comme nts U Cocaine Scr (test code = U Cocaine Scr) Negative *NA*(10/06/22 6:12 PM) [facility] [id number] 23:12:00* Test Item Value Reference Range Interpretation Comme nts U Cannab Scr (test code = U Cannab Scr) Positive *ABN*(10/06/22 6:12 PM) [facility] [id number] 23:12:00* Test Item Value Reference Range Interpretation Comme nts U Opiate Scr (test code = U Opiate Scr) Negative *NA*(10/06/22 6:12 PM) [facility] [id number] 23:12:00* Test Item Value Reference Range Interpretation Comme nts U Phencyclidine Scr (test code = U Phencyclidine Scr) Negative *NA*(10/06/22 6:12 PM) [facility] [id number] 23:12:00* Test Item Value Reference Range Interpretation Comme nts UDS Note (test code = UDS Note) See Note 3(10/06/22 6:12 PM) [facility] CenterTwwwbaoMXWKCLBMYBDJJ2930-69-68 23:12:00* Test Item Value Reference Range Interpretation Comme nts S Preg (test code = S Preg) Positive *NA*(10/06/22 6:12 PM) [facility] CenterJjjggasUGCJIYRGKX7476-53-97 23:12:00* Test Item Value Reference Range Interpretation Comme nts Coronavirus (COVID-19) FRANCO (test code = Coronavirus (COVID-19) FRANCO) Not Detected 7(10/06/22 6:12 PM) [facility] CenterBrhyplcDDYEZYCNZJ4284-75-84 23:12:00* Test Item Value Reference Range Interpretation Comme nts Coronavirus (COVID-19) FRANCO (test code = Coronavirus (COVID-19) FRANCO) Not Detected 11(10/06/22 6:12 PM) [facility] HospitalLbjrpjuACOZDNWAJD3085-16-16 23:12:00* Test Item Value Reference Range Interpretation Comme nts Ethanol Lvl (test code = Ethanol Lvl) no gt [facility] HospitalLgsnrysBWTORISKPB5422-96-89 23:12:00* Test Item Value Reference Range Interpretation Comme nts Etoh (%) (test code = Etoh (%)) no gt [facility] [id number] 23:12:00* Test Item Value Reference Range Interpretation Comme nts UA Color (test code = UA Color) Yellow (10/06/22 6:12 PM) [facility] [id number] 23:12:00* Test Item Value Reference Range Interpretation Comme nts UA Turbidity (test code = UA Turbidity) Marked *ABN*(10/06/22 6:12 PM) [facility] [id number] 23:12:00* Test Item Value Reference Range Interpretation Comme nts UA Spec Grav (test code = UA Spec Grav) 1.025 1 [facility] [id number] 23:12:00* Test Item Value Reference Range Interpretation Comme nts UA pH (test code = UA pH) 5.0 1 5.0-8.0 [facility] AND [id number] 23:12:00* Test Item Value Reference Range Interpretation Comme nts UA Protein (test code = UA Protein) 100 mg/dL [facility] AND [id number] 23:12:00* Test Item Value Reference Range Interpretation Comme nts UA Glucose (test code = UA Glucose) Negative mg/dL [facility] [id number] 23:12:00* Test Item Value Reference Range Interpretation Comme nts UA Ketones (test code = UA Ketones) Negative mg/dL [facility] [id number] 23:12:00* Test Item Value Reference Range Interpretation Comme nts UA Bili (test code = UA Bili) Negative *NA*(10/06/22 6:12 PM) [facility] [id number] 23:12:00* Test Item Value Reference Range Interpretation Comme nts UA Blood (test code = UA Blood) Large *ABN*(10/06/22 6:12 PM) [facility] [id number] 23:12:00* Test Item Value Reference Range Interpretation Comme nts UA Urobilinogen (test code = UA Urobilinogen) 2.0 0.1-1.0 [facility] [id number] 23:12:00* Test Item Value Reference Range Interpretation Comme nts UA Nitrite (test code = UA Nitrite) Negative (10/06/22 6:12 PM) [facility] [id number] 23:12:00* Test Item Value Reference Range Interpretation Comme nts UA Leuk Est (test code = UA Leuk Est) Negative (10/06/22 6:12 PM) [facility] [id number] 23:12:00* Test Item Value Reference Range Interpretation Comme nts UA Ascorbic Acid (test code = UA Ascorbic Acid) Negative 6*NA*(10/06/22 6:12 PM) [facility] [id number] 23:12:00* Test Item Value Reference Range Interpretation Comme nts UA Sq Epi (test code = UA Sq Epi) Many /LPF [facility] [id number] 23:12:00* Test Item Value Reference Range Interpretation Comme nts UA WBC (test code = UA WBC) 1 <=5 [facility] [id number] 23:12:00* Test Item Value Reference Range Interpretation Comme nts UA RBC (test code = UA RBC) no gt <=2 [facility] [id number] 23:12:00* Test Item Value Reference Range Interpretation Comme nts UA Bacteria (test code = UA Bacteria) Few /HPF [facility] [id number] 23:12:00* Test Item Value Reference Range Interpretation Comme nts UA Mucus (test code = UA Mucus) Few /LPF [facility] [id number] 23:12:00* Test Item Value Reference Range Interpretation Comme nts UA CaOx Lorena (test code = UA CaOx [place]) Occasional /HPF [facility] [id number] 23:12:00* Test Item Value Reference Range Interpretation Comme nts UA Hyal Cast (test code = UA Hyal Cast) 9 <=2 [facility] AND [id number] 23:12:00* Test Item Value Reference Range Interpretation Comme nts UA Color (test code = UA Color) Yellow (10/06/22 6:12 PM) [facility] AND [id number] 23:12:00* Test Item Value Reference Range Interpretation Comme nts UA Turbidity (test code = UA Turbidity) Marked *ABN*(10/06/22 6:12 PM) [facility] AND [id number] 23:12:00* Test Item Value Reference Range Interpretation Comme nts UA Spec Grav (test code = UA Spec Grav) 1.025 1 [facility] AND [id number] 23:12:00* Test Item Value Reference Range Interpretation Comme nts UA pH (test code = UA pH) 5.0 1 5.0-8.0 [facility] AND [id number] 23:12:00* Test Item Value Reference Range Interpretation Comme nts UA Protein (test code = UA Protein) 100 mg/dL [facility] AND [id number] 23:12:00* Test Item Value Reference Range Interpretation Comme nts UA Glucose (test code = UA Glucose) Negative mg/dL [facility] AND [id number] 23:12:00* Test Item Value Reference Range Interpretation Comme nts UA Ketones (test code = UA Ketones) Negative mg/dL [facility] AND [id number] 23:12:00* Test Item Value Reference Range Interpretation Comme nts UA Bili (test code = UA Bili) Negative *NA*(10/06/22 6:12 PM) [facility] AND [id number] 23:12:00* Test Item Value Reference Range Interpretation Comme nts UA Blood (test code = UA Blood) Large *ABN*(10/06/22 6:12 PM) [facility] AND [id number] 23:12:00* Test Item Value Reference Range Interpretation Comme nts UA Urobilinogen (test code = UA Urobilinogen) 2.0 0.1-1.0 [facility] [id number] 23:12:00* Test Item Value Reference Range Interpretation Comme nts UA Nitrite (test code = UA Nitrite) Negative (10/06/22 6:12 PM) [facility] [id number] 23:12:00* Test Item Value Reference Range Interpretation Comme nts UA Leuk Est (test code = UA Leuk Est) Negative (10/06/22 6:12 PM) [facility] [id number] 23:12:00* Test Item Value Reference Range Interpretation Comme nts UA Ascorbic Acid (test code = UA Ascorbic Acid) Negative 10*NA*(10/06/22 6:12 PM) [facility] [id number] 23:12:00* Test Item Value Reference Range Interpretation Comme nts UA Sq Epi (test code = UA Sq Epi) Many /LPF [facility] [id number] 23:12:00* Test Item Value Reference Range Interpretation Comme nts UA WBC (test code = UA WBC) 1 <=5 [facility] [id number] 23:12:00* Test Item Value Reference Range Interpretation Comme nts UA RBC (test code = UA RBC) no gt <=2 [facility] [id number] 23:12:00* Test Item Value Reference Range Interpretation Comme nts UA Bacteria (test code = UA Bacteria) Few /HPF [facility] [id number] 23:12:00* Test Item Value Reference Range Interpretation Comme nts UA Mucus (test code = UA Mucus) Few /LPF [facility] [id number] 23:12:00* Test Item Value Reference Range Interpretation Comme nts UA CaOx [place] (test code = UA CaOx [place]) Occasional /HPF [facility] [id number] 23:12:00* Test Item Value Reference Range Interpretation Comme nts UA Hyal Cast (test code = UA Hyal Cast) 9 <=2 [facility] RFLX MICR CULT IF [id number] 05:35:00* Test Item Value Reference Range Interpretation Comme nts UA COLOR (test code = COLU) YELLOW YEL/STRAW UA APPEARANCE (test code = APPU) CLOUDY CLEAR A UA GLUCOSE DIPSTICK (test co de = DGLUU) NEGATIVE NEGATIVE UA BILIRUBIN DIPSTICK (test code = BILU) NEGATIVE NEGATIVE UA KETONE DIPSTICK (test cod e = KETU) NEGATIVE NEGATIVE UA SPECIFIC GRAVITY (test co de = SGU) 1.018 1.005-1.030 N UA BLOOD DIPSTICK (test code = EJ) 3+ NEGATIVE A UA PH DIPSTICK (test code = MONTY) 6.0 5.0-7.0 N UA PROTEIN DIPSTICK (test co de = PROU) NEGATIVE NEGATIVE UA UROBILINIOGEN DIPSTICK (t est code = URO) 0.2 mg/dL 0.2-1.0 UA NITRITE DIPSTICK (test co de = BUTCH) NEGATIVE NEGATIVE UA LEUKOCYTE ESTERASE DIPSTI CK (test code = LEUU) NEGATIVE NEGATIVE UA WBC (test code = WBCU) 4-9 WBC/HPF 0-3 A UA RBC (test code = RBCU) >50 RBC/HPF 0-3 A UA WBC NO REFLEX (test code = WBCUCL) 4-9 WBC/HPF 0-3 A UA BACTERIA (test code = BACU) 2+ /HPF NONE SEEN A UA SQUAMOUS CELLS (test code = SQU) 0-5 /HPF NONE SEEN UA HYALINE CAST (test code = HYALU) 3-5 /LPF NONE SEEN UA MUCUS (test code = MUCU) 1+ /LPF NONE SEEN UA AMORPHOUS SEDIMENT (test code = AMORU) 2+ /HPF NONE A Indication for culture: Flank PainSpecimen Description: CLEAN CATCHCBC W/AUTO [id number] 05:35:00* Test Item Value Reference Range Interpretation Comme nts WHITE BLOOD CELL (test code = WBC) 13.3 x10 3/uL 4.5-11.0 H RED BLOOD CELL (test code = RBC) 4.25 x10 6/uL 3.54-5.02 N HEMOGLOBIN (test code = HGB) 13.1 g/dL 11.0-15.0 N HEMATOCRIT (test code = HCT) 37.2 % 33.0-45.0 N MEAN CELL VOLUME (test code = MCV) 87.5 fL 81.0-99.0 N MEAN CELL HGB (test code = MCH) 30.8 pg 27.0-33.0 N MEAN CELL HGB CONCETRATION (test code = MCHC) 35.2 g/dL 33.0-37.0 N RED CELL DISTRIBUTION WIDTH CV (test code = RDW) 12.3 % 11.5-14.5 N PLATELET COUNT (test code = PLT) 287 x10 3/uL 150-400 N NEUTROPHIL % (test code = NT%) 63.9 % 56.0-77.0 N LYMPHOCYTE % (test code = LY%) 26.8 % 14.0-32.0 N NEUTROPHIL # (test code = NT#) 8.49 x10 3/uL 2.0-7.6 H LYMPHOCYTE # (test code = LY#) 3.56 x10 3/uL 1.0-3.8 N MANUAL DIFF REQUIRED (test c ode = MDIFF) NO RED CELL DISTRIBUTION WIDTH SD (test code = RDW-SD) 39.2 fL 37.0-54.0 N MEAN PLATELET VOLUME (test c ode = MPV) 9.6 fL 7.0-9.0 H IMMATURE GRANULOCYTE % (test code = IG%) 0.8 % 0.0-2.0 N MONOCYTE % (test code = MO%) 5.9 % 4.8-9.0 N EOSINOPHIL % (test code = EO%) 2.1 % 0.3-3.7 N BASOPHIL % (test code = BA%) 0.5 % 0.0-2.0 N NUCLEATED RBC % (test code = NRBC%) 0.0 % 0-0 N IMMATURE GRANULOCYTE # (test code = IG#) 0.11 x10 3/uL 0.00-0.03 H MONOCYTE # (test code = MO#) 0.78 x10 3/uL 0.1-0.8 N EOSINOPHIL # (test code = EO#) 0.28 x10 3/uL 0.0-0.2 H BASOPHIL # (test code = BA#) 0.06 x10 3/uL 0.0-0.2 N NUCLEATED RBC # (test code = NRBC#) 0.00 x10 3/uL 0.0-0.1 N PROTHROMBIN [id number] 05:33:00* Test Item Value Reference Range Interpretation Comme nts PROTHROMBIN TIME PATIENT (test code = PTP) 12.1 SECONDS 9.3-12.9 N INTERNATIONAL NORMAL RATIO (test code = INR) 1.1 0.8-1.2 N TARGET INR BY INDICATION Indication INR1. Prophylaxis of venous thrombosis 2.0 - 3.0 (orthopedic surgery), Prophylaxis of venous thrombosis (other than high-risk surgery), Treatment of Deep Vein Thrombosis/Pulmonary Embolism, Prevention of systemic embolism - Tissue heart valves, Acute Myocardial Infarction (to prevent systemic embolism), Valvular heart disease, Atrial Fibrillation, Bileaflet mechanical valve in aortic position.2. Mechanical prosthetic valves (high risk), 2.5 - 3.5 Presence of Lupus Anticoagulant or Antiphospholipid Antibodies, Prevention of systemic embolism - Acute Myocardial Infarction (to prevent recurrent infarct). THROMBOPLASTIN TIME [id number] 05:33:00* Test Item Value Reference Range Interpretation Comme [facility] THROMBOPLASTIN TIME PARTIAL (test code = PTT) 28.8 Seconds 25.0-39.5 N Therapeutic Rang e: 50.4 - 88.3 Seconds Effective 05/28/2018 TSH REFLEX TO [id number] 05:24:00* Test Item Value Reference Range Interpretation Comme nts TSH REFLEX TO FT4 (test code = TSHREFLEX) 1.72 IU/mL 0.42-5.47 N TROP-I HIGH [id number] 05:24:00* Test Item Value Reference Range Interpretation Comme [facility] TROP-I HIGH SENSITIVITY (test code = TROPIHS) 4 ng/L 0-34 N CAUTION: Units o f the current test methodology (ng/L) differfrom the prior test methodology (ng/mL) by a factor of 1000. 99th Percentile Upper Reference Limit (URL): Females: 34 ng/LMales: 54 ng/L In order to distinguish acute elevations of high sensitivitytroponin from other clinical conditions, the FourthUniversal Definition of Myocardial Infarction stressesclinical assessment and the demonstration of a rise and/orfall in serial troponin results above the URL. These results were obtained using [place] IM TnIHreagent. Results from different methodologies should not becompared to one another as quantitative results and URLs mayvary by method. DRUGS OF ABUSE SCREEN [id number] 05:24:00* Test Item Value Reference Range Interpretation Comme nts URN COCAINE (test code = COCAURN) NEGATIVE NEGATIVE URN CANNABINOIDS (test code = CANNABURN) POSITIVE NEGATIVE A URN AMPHETAMINE (test code = AMPHETURN) POSITIVE NEGATIVE A URN BARBITURATE (test code = BARBITURN) NEGATIVE NEGATIVE URN BENZODIAZEPINE (test code = BENZOURN) NEGATIVE NEGATIVE Cut-off v alue:200 ng/mL URN OPIATES (test code = OPIATURN) NEGATIVE NEGATIVE Cut-off value:20 00 ng/mL URN PHENCYCLIDINE (PCP) (test code = PHENCURN) NEGATIVE NEGATIVE Cutoffs:B arbiturates 200 ng/mLBenzodiazepines 200 ng/mLTHC Cannabinoids 50 ng/mLOpiates(Morphine) 2000 ng/mLAmphetamine 1000 ng/mLCocaine 300 ng/mLPCP phencyclidine 25 ng/mL Unconfirmed screening results shouldnot be used for non-medical purposes. BASIC METABOLIC [id number] 05:24:00* Test Item Value Reference Range Interpretation Comme nts SODIUM (test code = NA) 138 mEq/L 134-147 N POTASSIUM (test code = K) 4.1 mEq/L 3.4-5.0 N CHLORIDE (test code = CL) 103 mEq/L 100-108 N CARBON DIOXIDE (test code = CO2) 30 mEq/l 21-33 N ANION GAP (test code = GAP) 9 0-20 N GLUCOSE (test code = GLU) 83 mg/dL 70-110 N BLOOD UREA NITROGEN (test code = BUN)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
--- NOTE | 2023-03-06 19:32 | EDPHYS ---
Physician Documentation [facility] Name: Sol Kemp Age: 32 yrs Sex: Female : 1990 Arrival Date: 03/06/2023 Time: 19:04 Bed IW10 Private MD: ED Physician Torres Duffy HPI: 03/06 19:25 This 32 yrs old Female presents to ER via Ambulatory with complaints of Csection kb Problem. 19:25 Patient is a 32-year-old female who presents for bleeding from site that kb began today. States she had a on 02/26/2023 at [facility]. States she has had some swelling around the site since the but it had not gotten any better so she had a PCP visit today and when she laid on the exam table the site started bleeding. States her PCP told her to go to the ER for evaluation but her had a first doctor's appointment today so she waited until now to come in. Denies any dizziness, weakness. Denies fever.. Historical: - Allergies: 19:16 Demerol; jj7 - PMHx: 19:16 adhd; PCOS; jj7 - PSHx: 19:16 ankle surgery; section; jj7 - Immunization history:: Adult Immunizations not up to date. - Social history:: Smoking status: Patient reports the use of cigarette tobacco products, smokes one-half pack cigarettes per day, Patient uses alcohol, occasionally. Patient/guardian denies using street drugs. ROS: 19:25 Constitutional: Negative for fever, chills, and weight loss, kb 19:25 Abdomen/GI: Positive for Swelling and bleeding from site, 19:25 All other systems are negative, Exam: 19:25 Constitutional: This is a well developed, well nourished patient who is awake, alert, kb and in no acute distress. Head/Face: Normocephalic, atraumatic. ENT: Moist Mucous membranes Cardiovascular: Regular rate Respiratory: Respirations even and unlabored. No increased work of breathing. Talking in full sentences MS/ Extremity: Pulses equal, no cyanosis. Neurovascular intact. Full, normal range of motion. Neuro: Awake and alert, GCS 15, oriented to person, place, time, and situation. Moves all extremities. Normal gait. Vital Signs: 19:11 BP 146 / 73; Pulse 104; Resp 20; Temp 97.8; Pulse Ox 100% ; Weight 79.83 kg; Height 5 jj7 ft. 0 in. ; Pain 7/10; 19:11 Body Mass Index 34.37 (79.83 kg, 152.4 cm) jj7 19:11 Pain Scale: Adult jj7 MDM: 19:10 Patient medically screened. kb 19:27 Differential diagnosis: Infection, dehiscence. Data reviewed: vital signs, nurses kb notes. ED course: Patient initially seen in triage. Blood noted to patient's dressing. I informed patient that when she got into a room I was going to remove the dressing and get a better look at the incision. Patient educated on plan for blood work and CT scan as well as possible need for transfer to [facility] since that is where she had the done.. 19:31 ED course: Triage nurse informed me that patient elected to leave prior to workup and kb go directly to [facility].. 03/06 19:30 Order name: IV Start kb Administered Medications: No medications were administered Disposition Summary: 03/06/23 19:32 Left Against Medical Advice Notes: Location: Home kb Problem: new kb Symptoms: are unchanged kb Condition: Stable kb Diagnosis - Lower abdominal pain, unspecified kb - Bleeding from surgical incision kb Followup: kb - With: Emergency Department - When: As needed - Reason: Worsening of condition Followup: kb - With: Private Physician - When: 2 - 3 days - Reason: Recheck today's complaints, Continuance of care, Re-evaluation by your physician Signatures: Dispatcher [employer] EDBatsheva Moore, JAWBONE PULLER-C JAWBONE PULLER-Donnell Aranda RN RN jj7 Corrections: (The following items were deleted from the chart) 19:18 19:16 Allergies: No Known Allergies; jj7 jj7 19:31 19:27 ED course: Triage nurse informed me that patient decided to leave after triage to go to [facility] instead of having workup done here. . kb 19:34 19:27 ED course: Patient initially seen in triage. Blood noted to patient's dressing. I kb informed patient that when she got into a room I was going to remove the dressing and get a better look at the incision. Patient educated on plan for blood work and CT scan as well as possible need for transfer to [facility] since that is where she had the done.. kb 21:06 19:30 Abdomen Pelvis W Con+CT.RAD.KAROLYN ordered. EDMS EDMS
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
[2023-03-06 23:45] VITALS: BP 146/73; TEMP 97.8; O2SAT 100
== END ==
LOC: ER 19:04
DX: R10.30 Lower abdominal pain, unspecified (principal); L76.22 Postprocedural hemorrhage of skin and subcutaneous tissue following other procedure; F17.210 Nicotine dependence, cigarettes, uncomplicated; Z88.5 Allergy status to narcotic agent
CPT/HCPCS: 99281

== ENCOUNTER 2024-04-29 10:10 | Emergency (ER) | payer OTHER, SELFPAY ==
--- OUTSIDE RECORDS SUMMARY | 2024-04-29 10:15 | XMS REPORT | Continuity of Care Document ---
Author Name Unknown Address [address] [place] [address] [facility] Address 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 Role Phone None, None Primary Care Physician [phone] LAURA NIELSEN Attending Clinician Unavailable Laura Nielsen MD Attending Clinician [phone] LALA QUINTANILLA Attending Clinician Un available BALA ROBERTSON Attending Clinician Unava JASON Dotson Attending Clinician Unavail able Hitesh Justin MD Attending Clinician [phone] MAGNOLIA RANDOLPH Attending Clinician Unavail able DAVIS DOUGHERTY Attending Clinician Unavailable MILENA CASTANON Attending Clinician UnavailDIANNE Silva Attending Clinician Unajuan Baez Attending Clinician Unavailable Estefany Sandoval Attending Clinician Unavailable [email or web address] Attending Clinician Unavail able WILFRIDO HO Attending Clinician Sheri Ho MD, Wilfrido Mcdaniels Attending Clinician [phone] Tyrone Vazquez DO Attending Clinician [phone] Doctor Unassigned, [place] Attending Clinician U SULTANA Morataya Attending Clinician Unavailable LAURA NIELSEN Admitting Clinician Unavailable LALA QUINTANILLA Admitting Clinician Un available BALA ROBERTSON Admitting Clinician Unava MAGNOLIA Perez Admitting Clinician Unavail able MILENA CASTANON Admitting Clinician UnavailCHELSEA Perez Admitting Clinician Unavailabl grisel Baez Admitting Clinician Unavailable Physician, No Primary or Family Admitting Clinic cherie Unavailable [email or web address] Admitting Clinician Unavail able Payers Payer Name Policy Type Policy Number Effective Date Expirati on Date Source [place] [employer] [id number] 2023 00:00:00 [facility] CHOICE/CHOICE PLUS [id number] 2022 00:00:00 2022 00:00:00 [facility] (HMO) [id number] [facility] (MEDICAID HMO) [id number] 2015 00:00:00 [facility] [id number] [facility] (MEDICAID REPLACEMENT - HMO) [id number] 2022 00:00:00 [employer] [id number] 2020 00:00:00 [employer] [place] [id number] 2019 00:00:00 Problems Condition Name Condition Details Condition Category Status Onset Date Resolution Date Last Treatment Date Treating Clinician Comments Source BLOOD PRESSURE BLOOD PRESSURE Active 02/19/2023 [facility] Diagnosis Active 02-19 00:00: 00 2023-02-19 22:57:00 Liseth Reyes HYPERTENSI ON IN , SEVERE PREECL HYPERTENSI ON IN , SEVERE PREECL Active 02/19/2023 [facility] Diagnosis Active 02-19 00:00: 00 2023-02-21 07:28:00 Liseth Reyes WOUND WOUND Active 12/11/2022 [facility] Diagnosis Active 2022-02 0-30 00:00: 00 2022-12-12 13:53:00 Liseth Reyes Patient currently (finding) Patient currently (finding) Active 11/18/2022 Problem 02/22/2023 [facility] Problem Active 2022-02 0-07 00:00: 00 2023-02-22 07:24:03 Liseth Reyes LEG WOUND LEG WOUND Active 11/18/2022 [facility] Diagnosis Active 2022-02 0-07 00:00: 00 2022-11-18 08:20:00 Liseth Reyes CELLULITIS OF LEG, , OBSTERICAL CELLULITIS OF LEG, , OBSTERICAL Active 11/18/2022 [facility] Diagnosis Active 2022-02 0-07 00:00: 00 2022-12-14 07:17:00 Liseth Reyes OPEN WOUND INFECTION OPEN WOUND INFECTION Active 11/17/2022 [facility] Diagnosis Active 2022-02 0-06 00:00: 00 2022-12-14 07:17:00 Liseth Reyes AUTO/PED AUTO/PED Active 10/06/2022 [facility] Diagnosis Active 8- 00:00: 00 2022-10-11 13:45:00 Liseth ZURITA BILLING Active 10/06/2022 [facility] Diagnosis Active 8- 00:00: 00 2022-10-11 13:57:00 Liseth Reyes Benign essential hypertensi on complicati ng , childbirth and the puerperium - not delivered Benign Essential Hypertensi on Complicati ng , Childbirth and the Puerperium - Not Delivered Problem Active 08-04 00:00: 00 [facility] Problem Active 08-04 00:00: 00 [facility] Maternal tobacco use Maternal Tobacco Use Problem Active 08-04 00:00: 00 [facility] Morbid obesity with body mass index of 40.0-49.9 Morbid obesity with body mass index of 40.0-49.9 Disease Active 4-08 00:00: 00 [facility] Morbid obesity with body mass index of 40.0-49.9 Morbid obesity with body mass index of 40.0-49.9 Disease Active 4-08 00:00: [address] [facility] Pilonidal cyst Pilonidal cyst Disease Active 04-30 00:00: 00 Overview: Formattin g of this note might be different from the original. Added automatic ally from request for surgery [id number] [facility] Attention deficit disorder of adult Attention deficit disorder of adult Disease Active 04-01 00:00: [address] [facility] Tobacco use disorder Tobacco use disorder Disease Active 10-03 00:00: 00 [facility] PCOS (polycysti c ovarian syndrome) PCOS (polycysti c ovarian syndrome) Disease Active 10-03 00:00: [address] [facility] PCOS (polycysti c ovarian syndrome) PCOS (polycysti c ovarian syndrome) Disease Active 10-03 00:00: 00 [facility] Oligomenor monet Oligomenor monet Disease Active 08-29 00:00: 00 [facility] J20.8 - ACUTE BRONCHITIS DUE TO OTHER J20.8 - ACUTE BRONCHITIS DUE TO OTHER Active 07/27/2015 [facility] Diagnosis Active 07-26 00:01: 00 2015-07-27 16:01:00 Liseth Reyes 078.11 / CPT 21276 078.11 / CPT 67466 Active 12/08/2010 [facility] Diagnosis Active 2010-02 00:00: 00 2010-12-12 11:18:00 Liseth Reyes Attention deficit hyperactiv ity disorder (disorder) Attention deficit hyperactiv ity disorder (disorder) Active Problem 10/09/2022 [facility] Problem Active 2022-10-09 15:40:48 Liseth Reyes Benign essential hypertensi on (disorder) Benign essential hypertensi on (disorder) Active Problem 02/22/2023 [facility] Problem Active 2023-02-22 07:24:03 Liseth Reyes Major depressive disorder (disorder) Major depressive disorder (disorder) Active Problem 02/22/2023 [facility] Problem Active 2023-02-22 07:24:03 Liseth Reyes SEPSIS, UNSPECIFIE D ORGANISM SEPSIS, UNSPECIFIE D ORGANISM Active [facility] Diagnosis Active 2022-10-11 13:45:00 Liseth Reyes CELLULITIS OF UNSPECIFIE D PART OF LIMB CELLULITIS OF UNSPECIFIE D PART OF LIMB Active [facility] Diagnosis Active 2022-12-14 07:17:00 Liseth Reyes ENCNTR FOR SUPRVSN OF NORMAL , ENCNTR FOR SUPRVSN OF NORMAL , Active [facility] Diagnosis Active 2022-12-14 07:17:00 Liseth Reyes SEVERE PRE-ECLAMP PIETER, UNSPECIFIE D TRIMES SEVERE PRE-ECLAMP PIETER, UNSPECIFIE D TRIMES Active [facility] Diagnosis Active 2023-02-21 07:28:00 Liseth Reyes Allergies, Adverse Reactions, Alerts Allergy Name Allergy Type Status Severity Reaction(s) Onset Date Inactive Date Treating Clinician Comments Source MEPERIDI NE DRUG INGREDI Active Hallucinates 05-14 00:00: [address] [facility] Meperidi ne Propensi ty to adverse reaction s Active Hallucinatio ns 05-14 00:00: [address] 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 codeine codeine Active Liseth Reyes Social History Social Habit Start Date Stop Date Quantity Comments Source History of tobacco use Cigarette Smoker [facility] History SDOH Alcohol Frequency [facility] History SDOH Alcohol Std Drinks [facility] History SDOH Alcohol Binge [facility] intake 2022-12-07 00:00:00 2022-12-07 00:00:00 Ex-drinker (finding) [facility] History of Social function 2020-07-20 00:00:00 2020-07-20 00:00:00 [facility] Cigarettes smoked current (pack per day) - Reported 2015-08-30 00:00:00 2015-08-30 00:00:00 [facility] Cigarette pack-years 2015-08-30 00:00:00 2015-08-30 00:00:00 [facility] Tobacco use and exposure 2015-08-30 00:00:00 2015-08-30 00:00:00 Smokeless tobacco non-user [facility] Alcohol Comment 2015-08-30 00:00:00 2015-08-30 00:00:00 1-2 week [facility] Sex Assigned At 1990 00:00:00 1990 00:00:00 [facility] Smoking Status Start Date Stop Date Source Heavy Tobacco Smoker [facility] Social History 2015-07-26 20:44:48 Cinda Yu Medications Ordered Medication Name Filled Medication Name Start Date Stop Date Current Medication? Ordering Clinician Indication Dosage Frequency Signature (SIG) Comments Components Source ibuprofen (IBU) tablet 800 mg 05-14 08:30: 00 05-14 08:32 :00 No 800mg 800 mg, Oral, ONCE, 1 dose, On Sun05/15/23 at 0330, [facility] ibuprofen 800 mg tablet 05-14 00:00: 00 Yes [id number] 800mg Take 1 tablet by mouth every 8 (eight) hours as needed for Pain (scale 4-6). [facility] Augmentin 875 mg oral tablet 2022-02 21:27: 00 Yes 875 mg = 1 tab, PO, Q12H, X 14 day, # 28 tab, 0 Refill(s), Pharmacy: [facility] [place], 162.56, cm, 11/23/22 13:35:00 CDT, Height, 81.9, kg, 11/23/22 13:35:00 CDT, Weight Liseth Reyes Marshall 5/325 oral tablet 2022-02 21:01: 00 Yes 1 tab, PO, Q6H, PRN Pain Score 1-3, X 7 day, # 30 tab, 0 Refill(s), Pharmacy: [facility], 162.56, cm, 11/23/22 13:35:00 CDT, Height, 81.9, kg, 11/23/22 13:35:00 CDT, Weight Liseth Reyes Zofran 4 mg oral tablet 2022-02 21:01: 00 Yes 4 mg = 1 tab, PO, Q6H, PRN Nausea/Vom iting, X 8 day, # 30 tab, 0 Refill(s), Pharmacy: [facility], 162.56, cm, 11/23/22 13:35:00 CDT, Height, 81.9, kg, 11/23/22 13:35:00 CDT, Weight Liseth Finnann metroNIDAZO LE 500 mg oral tablet 2022-02 21:00: 00 Yes 500 mg = 1 tab, PO, ABXQ8H, X 7 day, # 21 tab, 0 Refill(s), Pharmacy: [facility], 162.56, cm, 11/23/22 13:35:00 CDT, Height, 81.9, kg, 11/23/22 13:35:00 CDT, Weight Liseth Finnann Multivitami ns with Folic Acid 1 mg oral tablet 2022-02 21:00: 00 Yes 1 mg = 1 tab, PO, Daily, # 30 tab, 11 Refill(s), Pharmacy: [facility], 162.56, cm, 11/23/22 13:35:00 CDT, Height, 81.9, kg, 11/23/22 13:35:00 CDT, Weight Liseth taylor Eric docusate sodium 100 mg oral capsule 2022-02 21:00: 00 Yes 100 mg = 1 cap, PO, BID, # 60 cap, 0 Refill(s), Pharmacy: [facility], 162.56, cm, 11/23/22 13:35:00 CDT, Height, 81.9, kg, 11/23/22 13:35:00 CDT, Weight Liseth taylor Eric amoxicillin -clavulanat e (Augmentin) 875-125 MG tablet 2022-02 00:00: 00 Yes TAKE ONE (1) TABLET(S) BY MOUTH EVERY TWELVE HOURS FOR 14 DAYS. [facility] metroNIDAZO LE (Flagyl) 500 MG tablet 2022-02 0-16 00:00: 00 Yes TAKE ONE (1) TABLET(S) BY MOUTH EVERY EIGHT HOURS FOR SEVEN DAYS. [facility] Omnipaque 350 mg/mL 10-06 23:35: 00 No 100 mL, Route: IVP, Drug Form: SOLN, Dosing Weight 79.545, kg, ONCALL, STAT, Start date: 10/06/22 18:35:00 CDT, Duration: 1 doses or times, Dose = 2.2ml/kg, Max dose = 100ml -- "To be infused by Radiology Staff ONLY" Liseth Reyes Saline Flush 0.9% 10-06 22:59: 00 No Notes: preservati ve free. Liseth Reyes buPROPion SR (Wellbutrin SR) 150 MG 12 hr tablet 2-04 00:00: 00 Yes 150mg Q.5D Take 150 mg by mouth in the morning and 150 mg in the evening. [facility] lisdexamfet amine (VYVANSE) 40 mg capsule 9-13 00:00: 00 Yes [id number] 40mg Take 1 capsule by mouth every morning. [facility] lisdexamfet amine (VYVANSE) 40 mg capsule 8-16 00:00: 00 Yes [id number] 40mg Take 1 capsule by mouth every morning. [facility] lisdexamfet amine (VYVANSE) 40 mg capsule 7-14 00:00: 00 Yes [id number] 40mg Take 1 capsule by mouth every morning. [facility] lisdexamfet amine (VYVANSE) 40 mg capsule 6-14 00:00: 00 Yes [id number] 40mg Take 1 capsule by mouth every morning. [facility] norgestimat e-ethinyl estradioL 0.25-35 mg-mcg per tablet 6-08 18:29: 21 07-20 00:00 :00 No 1{tbl} Take 1 tablet by mouth daily. [facility] norgestimat e-ethinyl estradioL 0.25-35 mg-mcg per tablet 6-08 00:00: 00 Yes [id number] 1{tbl} Take 1 tablet by mouth daily. [facility] lisdexamfet amine (VYVANSE) 40 mg capsule 5-14 00:00: 00 07-26 00:00 :00 No [id number] 40mg Take 1 capsule by mouth every morning. [facility] lisdexamfet amine (VYVANSE) 40 mg capsule 4-14 00:00: 00 Yes [id number] 40mg Take 1 capsule by mouth every morning. [facility] lisdexamfet amine (VYVANSE) 40 mg capsule 3-12 00:00: 00 05-26 00:00 :00 No [id number] 40mg Take 1 capsule by mouth every morning. [facility] lisdexamfet amine (VYVANSE) 40 mg capsule 2-09 00:00: 00 04-23 00:00 :00 No [id number] 40mg Take 1 capsule by mouth every morning. [facility] lisdexamfet amine (VYVANSE) 40 mg capsule 1- 00:00: 00 Yes [id number] 40mg Take 1 capsule by mouth every morning. [facility] dextroamphe tamine-amph etamine (ADDERALL) 10 mg tablet 2019-02 2- 00:00: 00 Yes [id number] 10mg Take 1 tablet by mouth 2 (two) times daily. [facility] dextroamphe tamine-amph etamine (ADDERALL) 10 mg tablet 2019-02 1-10 00:00: 00 01-21 00:00 :00 No [id number] 10mg Take 1 tablet by mouth 2 (two) times daily. [facility] lisdexamfet amine (VYVANSE) 40 mg capsule 2019-02 0-07 00:00: 00 02-22 00:00 :00 No [id number] 40mg Take 1 capsule by mouth every morning. [facility] lisdexamfet amine (VYVANSE) 40 mg capsule 2019-0 9-01 00:00: 00 -07 00:00 :00 No [id number] 40mg Take 1 capsule by mouth every morning. [facility] lisdexamfet amine (VYVANSE) 40 mg capsule 2019-0 7-13 00:00: 00 Yes [id number] 40mg Take 1 capsule by mouth every morning. [facility] lisdexamfet amine (VYVANSE) 40 mg capsule 2019-0 6-10 00:00: 00 -13 00:00 :00 No [id number] 40mg Take 1 capsule by mouth every morning. [facility] lisdexamfet amine (VYVANSE) 40 mg capsule 2019-0 5-12 00:00: 00 Yes [id number] 40mg Take 1 capsule by mouth every morning. [facility] norgestimat e-ethinyl estradiol 0.25-35 mg-mcg per tablet 2019-0 4-13 00:00: 00 Yes [id number] 1{tbl} Take 1 tablet by mouth daily. [facility] lisdexamfet amine (VYVANSE) 40 mg capsule 2019-0 4-13 00:00: 00 Yes [id number] 40mg Take 1 capsule by mouth every morning. [facility] lisdexamfet amine (VYVANSE) 40 mg capsule 2019-0 3-13 00:00: 00 Yes [id number] 40mg Take 1 capsule by mouth every morning. [facility] lisdexamfet amine (VYVANSE) 40 mg capsule 2019-0 2-12 00:00: 00 Yes [id number] 40mg Take 1 capsule by mouth every morning. [facility] lisdexamfet amine (VYVANSE) 40 mg capsule 2019-0 1-13 00:00: 00 04-13 00:00 :00 No [id number] 40mg Take 1 capsule by mouth every morning. [facility] lisdexamfet amine (VYVANSE) 40 mg capsule 2018-1 2-12 00:00: 00 03-26 00:00 :00 No [id number] 40mg Take 1 capsule by mouth every morning. [facility] lisdexamfet amine (VYVANSE) 40 mg capsule 0 9-13 00:00: 00 Yes [id number] 40mg Take 1 capsule by mouth every morning. [facility] lisdexamfet amine (VYVANSE) 40 mg capsule -16 00:00: 00 Yes [id number] 40mg Take 1 capsule by mouth every morning. [facility] lisdexamfet amine (VYVANSE) 40 mg capsule 0 -17 00:00: 00 09-27 00:00 :00 No [id number] 40mg Take 1 capsule by mouth every morning. [facility] MULTIVITS,C A,MINERALS/ IRON/FA (ONE-A-DAY WOMENS FORMULA ORAL) 07-30 18:23: 57 Yes Take by mouth. [facility] MULTIVITS,C A,MINERALS/ IRON/FA (ONE-A-DAY WOMENS FORMULA ORAL) 07-30 13:23: 57 Yes Take by mouth. [facility] norgestimat e-ethinyl estradiol 0.25-35 mg-mcg per tablet 5-24 00:00: 00 05-25 00:00 :00 No [id number] 1{tbl} Take 1 tablet by mouth daily. [facility] acetaminoph en-hydrocod one 325 mg-5 mg oral tablet 2010-02 19:12: 00 No Gale Lacey 2 tab, Route: PO, Drug Form: TAB, ONCE, PRN Pain, Start date: 12/12/10 14:12:00 Liseth Reyes ondansetron 2010-02 19:10: 00 No Gale Lacey 4 mg, 2 mL, Route: IVP, Drug form: INJ, ONCE, PRN Nausea & Vomiting, Start date: 12/12/10 14:10:00 Liseth Reyes morphine Sulfate 2010-02 19:10: 00 No Gale Lacey 2 mg, 1 mL, Route: IVP, Drug [...] date: Limited # of times Liseth Reyes lidocaine 1% 2010-02 18:00: 00 No Sadiq Garcia 0.5 mL, Route: SUB-Q, Drug Form: INJ, ONCALL, Start date: 12/12/10 13:00:00, Duration: 1 doses or times Liseth Reyes Lactated Ringers IV 500 mL 2010-02 17:23: 00 No Sandie Littlejohn Payan-Ly nch 500 mL, Rate: 75 ml/hr, Infuse over: 6.7 hr, Route: IV, Total Volume: 500, Start date: 12/12/10 12:23:00, Duration: 30 day, Stop date: 01/11/11 12:22:00 Liseth Finnann Vicodin 5/500 oral tablet 2010-02 17:21: 00 No Sandie Littlejohn Payan-Ly nch 2 tab, Route: PO, Drug Form: TAB, POST OP, PRN Pain, Start date: 12/12/10 12:21:00, Duration: 30 day, Stop date: 01/11/11 11:20:00 Liseth Reyes Toradol 10 mg oral tablet 2010-02 17:20: 32 Yes Sandie Littlejohn Payan-Ly nch 10 mg, 1 tab, PO, Q6H, PRN, 20 tab, Pain, Substituti on Allowed, TAB Liseth Finnann Vicodin 5/500 oral tablet 2010-02 17:20: 22 Yes Sandie Littlejohn Payan-Ly nch 1-2 tablets, PO, Q4-6H, PRN, 40 tab, 1, 1, for Pain, Substituti on Allowed, Maintenanc e Liseth Reyes Lactated Ringers Injection IV 1,000 [...] tablet every 72 hours by oral route. [facility] Vyvanse 40 mg capsule TAKE ONE (1) CAPSULE(S) BY MOUTH DAILY IN THE MORNING. Vyvanse 40 mg capsule TAKE ONE (1) CAPSULE(S) BY MOUTH DAILY IN THE MORNING. No Vyvanse 40 mg capsule TAKE ONE (1) CAPSULE(S) BY MOUTH DAILY IN THE MORNING. [facility] Vital Signs Vital Name Observation Time Observation Value Comments S mahnazce Systolic blood pressure 2023-05-15 08:30:00 135 mm[Hg] [facility] Diastolic blood pressure 2023-05-15 08:30:00 90 mm[Hg] [facility] Heart rate 2023-05-15 08:30:00 90 /min [facility] Respiratory rate 2023-05-15 08:30:00 15 /min [facility] Oxygen saturation in Arterial blood by Pulse oximetry 2023-05-15 08:30:00 95 /min [facility] Body temperature 2023-05-15 07:42:00 37 [place] [facility] Body height 2023-05-15 07:42:00 152.4 cm [facility] Body weight 2023-05-15 07:42:00 70.308 kg [facility] BMI 2023-05-15 07:42:00 30.27 kg/m2 [facility] Systolic blood pressure 2022-12-07 18:44:00 116 mm[Hg] [facility] Diastolic blood pressure 2022-12-07 18:44:00 76 mm[Hg] [facility] Heart rate 2022-12-07 18:44:00 100 /min [facility] Body temperature 2022-12-07 18:44:00 36.22 [facility] Body height 2022-12-07 18:44:00 [facility].6 [facility] Body weight 2022-12-07 18:44:00 79.697 [facility] BMI 2022-12-07 18:44:00 30.16 kg/m2 [facility] BP Diastolic 2022-08-04 00:00:00 79 mm[Hg] [facility] Height 2022-08-04 00:00:00 60 [in_i] [facility] BMI (Body Mass Index) 2022-08-04 00:00:00 31.8 kg/m2 [facility] BP Systolic 2022-08-04 00:00:00 132 mm[Hg] [facility] Body Weight 2022-08-04 00:00:00 163 [lb_av] [facility] Systolic blood pressure 2020-07-20 18:15:00 157 mm[Hg] [facility] Diastolic blood pressure 2020-07-20 18:15:00 79 mm[Hg] [facility] Heart rate 2020-07-20 18:15:00 92 /min [facility] Body height 2020-07-20 18:15:00 152.4 cm [facility] Body weight 2020-07-20 18:15:00 105.688 kg [facility] BMI 2020-07-20 18:15:00 45.50 kg/m2 [facility] Systolic (mm Hg) 2023-02-20 05:49:00 [facility] Diastolic (mm Hg) 2023-02-20 05:49:00 [facility] Height 2023-02-20 04:13:00 5 [ft_i] [facility] BMI Calculated 2023-02-20 04:13:00 [facility] Weight 2023-02-20 04:13:00 [facility] Heart Rate 2023-02-20 04:13:00 [facility] Temperature Oral (F) 2023-02-20 04:13:00 98.6 F [facility] Heart Rate 2022-11-27 21:19:30 [facility] Temperature Oral (F) 2022-11-27 21:19:11 97.4 F [facility] Systolic (mm Hg) 2022-11-27 21:18:41 [facility] Diastolic (mm Hg) 2022-11-27 21:18:41 [facility] Height 2022-11-23 18:35:00 5 [ft_i] [facility] Weight 2022-11-23 18:35:00 [facility] BMI Calculated 2022-11-23 18:35:00 [facility] Temperature Oral (F) 2022-11-21 18:00:00 98.2 F [facility] Height 2022-11-17 14:35:00 5 [ft_i] [facility] BMI Calculated 2022-11-17 14:35:00 [facility] Weight 2022-11-17 14:35:00 [facility] Systolic (mm Hg) 2022-11-17 14:35:00 [facility] Diastolic (mm Hg) 2022-11-17 14:35:00 [facility] Heart Rate 2022-11-17 14:35:00 [facility] Temperature Oral (F) 2022-11-17 14:35:00 97.8 F [facility] Systolic (mm Hg) 2022-10-07 04:00:00 [facility] Diastolic (mm Hg) 2022-10-07 04:00:00 [facility] Respitory Rate 2022-10-07 04:00:00 [facility] Respitory Rate 2022-10-07 02:00:00 [facility] Systolic (mm Hg) 2022-10-07 02:00:00 [facility] Diastolic (mm Hg) 2022-10-07 02:00:00 [facility] Respitory Rate 2022-10-07 00:15:00 [facility] Systolic (mm Hg) 2022-10-07 00:15:00 [facility] Diastolic (mm Hg) 2022-10-07 00:15:00 [facility] Temperature Oral (F) 2022-10-06 23:10:00 97.6 F [facility] Height 2022-10-06 23:06:00 152.4 cm [facility] BMI Calculated 2022-10-06 23:06:00 [facility] Weight 2022-10-06 23:06:00 [facility] Diastolic (mm Hg) 2010-12-12 19:30:00 [facility] Systolic (mm Hg) 2010-12-12 19:30:00 [facility] Diastolic (mm Hg) 2010-12-12 19:15:00 [facility] Systolic (mm Hg) 2010-12-12 19:15:00 [facility] Diastolic (mm Hg) 2010-12-12 19:00:00 [facility] Systolic (mm Hg) 2010-12-12 19:00:00 [facility] Respitory Rate 2010-12-12 19:00:00 [facility] Respitory Rate 2010-12-12 18:45:00 [facility] Respitory Rate 2010-12-12 18:30:00 [facility] Heart Rate 2010-12-12 17:19:00 [facility] Weight 2010-12-09 19:53:00 [facility] Height 2010-12-09 19:53:00 152.4 cm [facility] Weight 2010-12-09 19:51:00 [facility] Height 2010-12-09 19:51:00 152.4 cm [facility] Procedures Procedure Date / Time Performed Performing Clinician Source EKG-12 LEAD 2023-05-15 08:39:42 Laura Nielsen [facility] Debridement, subcutaneous tissue (includes epidermis and dermis, if performed); first 20 sq cm or less 2022-11-18 18:59:00 [facility] ULTRASOUND, UTERUS REAL TIME WITH IMAGE DOCUMENTAITON, TRANSVAGINAL 2022-08-04 00:00:00 [facility] MEDICATION CORRESPONDENCE 2020-01-01 06:01:00 Do ctor Unassigned, [place] [facility] MEDICATION CORRESPONDENCE 2019-10-21 05:01:00 Do ctor Unassigned, [place] [facility] Colonoscopy 2015-05-28 05:00:00 [facility] Ankle fusion 2007-02-12 00:00:00 [facility] Plan of Care Planned Activity Planned Date Details Comments Source Diagnostic Test Pending 2022-08-04 00:00:00 CBC w/ auto diff [code = CBC w/ auto diff] [facility] Diagnostic Test Pending 2022-08-04 00:00:00 culture, urine [code = culture, urine] [facility] Diagnostic Test Pending 2022-08-04 00:00:00 RPR (rapid plasma reagin), serum [code = RPR (rapid plasma reagin), serum] [facility] Diagnostic Test Pending 2022-08-04 00:00:00 ABO and Rh group panel - Blood [code = 17729-2] [facility] Diagnostic Test Pending 2022-08-04 00:00:00 rubella Ab, titer, serum [code = rubella Ab, titer, serum] [facility] Diagnostic Test Pending 2022-08-04 00:00:00 HBsAg (hepatitis B surface Ag), serum [code = HBsAg (hepatitis B surface Ag), serum] [facility] Diagnostic Test Pending 2022-08-04 00:00:00 Blood group antibody screen [Presence] in Serum or Plasma [code = 890-4] [facility] Diagnostic Test Pending 2022-08-04 00:00:00 drug screen, urine [code = drug screen, urine] [facility] Diagnostic Test Pending 2022-08-04 00:00:00 HIV (1+2) Ab screen, serum [code = HIV (1+2) Ab screen, serum] [facility] Diagnostic Test Pending 2022-08-04 00:00:00 urinalysis, dipstick [code = urinalysis, dipstick] [facility] Diagnostic Test Pending 2022-08-04 00:00:00 test, urine [code = test, urine] [facility] Diagnostic Test Pending 2022-08-04 00:00:00 chromosome 13+18+21+X+Y aneuploidy, blood [code = chromosome 13+18+21+X+Y aneuploidy, blood] [facility] Diagnostic Test Pending 2022-08-04 00:00:00 genetic screen, unspecified specimen [code = genetic screen, unspecified specimen] [facility] Diagnostic Test Pending 2022-08-04 00:00:00 HbA1c (hemoglobin A1c), blood [code = HbA1c (hemoglobin A1c), blood] [facility] Diagnostic Test Pending 2022-08-04 00:00:00 pap, IG + CT/NG/TV + HR HPV + reflex HPV (16+18+45) [code = pap, IG + CT/NG/TV + HR HPV + reflex HPV (16+18+45)] [facility] dical Group Encounters Start Date/Time End Date/Time Encounter Type Admission Type Attending [facility] Care Facility Care Department Encounter ID Source 2023-05-15 02:39:00 2023-05-15 03:52:00 Emergency X LAURA NIELSEN [facility] ERT [id number] [facility] 2023-05-15 02:39:00 2023-05-15 03:52:00 Emergency Laura Nielsen S [facility] 1.2.840.114 350.1.13.10 4.2.7.2.[id number] [facility] 2023-03-23 10:53:25 2023-03-23 10:53:[address] [facility] [id number] [place] [facility] 2023-03-07 12:06:00 2023-03-08 19:50:00 Inpatient E LALA QUINTANILLA [facility]SE [id number] [facility] 2023-03-06 14:19:28 2023-03-06 14:19:[address] [facility] [id number] [facility] 2023-02-24 05:22:00 2023-03-01 18:17:00 Inpatient E LALA QUINTANILLA MHSE [id number] [facility] 2023-02-20 04:16:00 2023-02-20 05:52:00 Inpatient [facility] [id number] [facility] 2023-02-19 22:23:00 2023-02-19 23:52:00 Inpatient E BALA ROBERTSON MHSE [id number] [facility] 2023-02-19 09:04:54 2023-02-19 09:04:54 Outpatient SFA SFA [id number] [facility] 2023-01-19 11:52:06 2023-01-19 11:52:06 Outpatient SFA SFA [id number] [facility] 2022-12-12 18:01:00 2023-01-11 05:59:00 Wound Care [facility] [id number] Liseth taylor [place] 2022-12-12 13:01:00 2023-01-10 23:59:00 Outpatient JASON SANTOS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
[2024-04-29 11:41] LABS: Influenza A Ag Negative; Influenza B Ag Negative; SARS-CoV-2 Antigen Rapid Res Negative (Negative)
--- NOTE | 2024-04-29 12:06 | ER ---
Nurse's Notes [facility] Name: Sol Kemp Age: 34 yrs Sex: Female : 1990 Arrival Date: 04/29/2024 Time: 10:10 Bed IW3 Private MD: Diagnosis: Acute upper respiratory infection, unspecified Presentation: 04/29 10:53 Chief complaint: Patient states: not feeling well for a few days, also has a cough, was iw exposed to COVID recently and needs clearance for work. Coronavirus screen: Client presents with at least one sign or symptom that may indicate coronavirus-19. Ebola Screen: No symptoms or risks identified at this time. Risk Assessment: Do you want to hurt yourself or someone else? Patient reports no desire to harm self or others. 10:53 Acuity: NICOLA 4 iw 10:53 Method Of Arrival: Ambulatory iw 10:53 Initial Sepsis Screen: Does the patient meet any 2 criteria? No. Patient's initial iw sepsis screen is negative. Does the patient have a suspected source of infection? No. Patient's initial sepsis screen is negative. Onset of symptoms was April 26, 2024. Triage Assessment: 11:00 General: Appears in no apparent distress. Behavior is calm, cooperative. 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 - Infectious Disease History:: Denies. - Social history:: Smoking status: Patient reports the use of cigarette tobacco products, smokes one-half pack cigarettes per day. Screenin:08 [facility] ED Fall Risk Assessment (Adult) History of falling in the last 3 months, iw including since admission No falls in past 3 months (0 pts) Confusion or Disorientation No (0 pts) Intoxicated or Sedated No (0 pts) Impaired Gait No (0 pts) Mobility Assist Device Used No (0 pt) Altered Elimination No (0 pt) Score/Fall Risk Level 0 - 2 = Low Risk Oriented to surroundings, Maintained a safe environment. Abuse screen: Denies threats or abuse. Denies injuries from another. Nutritional screening: No deficits noted. Tuberculosis screening: No symptoms or risk factors identified. Assessment: 11:00 General: Appears in no apparent distress. Behavior is calm, cooperative. General: iw Reports fever for feeling ill for fatigue for. Pain: Complains of pain in all over. Neuro: Level of Consciousness is awake, alert, obeys commands, Oriented to person, place, time, situation, Moves all extremities. Full function. Cardiovascular: Patient's skin is warm and dry. Respiratory: Respiratory effort is even, unlabored, Respiratory pattern is regular, symmetrical. Derm: Skin is intact, is healthy with good turgor. Vital Signs: 10:53 BP 155 / 89; Pulse 89; Resp 18; Temp 97.7; Pulse Ox 100% on R/A; iw ED Course: 10:12 Patient arrived in ED. mr 10:51 Franklin Fernandez MD is Attending Physician. jj9 10:53 Triage completed. iw 10:54 Arm band placed on. iw 10:55 Carole Ratliff, RN is Primary Nurse. iw 11:00 Patient has correct armband on for positive identification. Provided Education on: . iw 12:08 No provider procedures requiring assistance completed. Patient did not have IV access iw during this emergency room visit. 12:10 Primary Nurse role handed off by Carole Ratliff RN 12:15 Carole Ratliff RN is Primary Nurse. iw Administered Medications: No medications were administered Medication: 11:00 VIS not applicable for this client. iw Outcome: 12:05 Discharge ordered by . jj9 12:08 Discharged to home ambulatory, iw 12:08 Condition: good 12:08 Discharge instructions given to patient, Instructed on discharge instructions, follow up and referral plans. Demonstrated understanding of instructions, follow-up care, 12:09 Patient left the ED. jj9 12:22 Patient left the ED. iw Signatures: Gale Merritt, Reg Reg mr Carole Ratliff RN RN Kyara Garcia RN RN Franklin Fernandez MD MD jj9
--- NOTE | 2024-04-29 12:06 | EDPHYS ---
Physician Documentation [facility] Name: Sol Kemp Age: 34 yrs Sex: Female : 1990 Arrival Date: 04/29/2024 Time: 10:10 Bed IW3 Private MD: ED Physician Franklin Fernandez HPI: 04/29 16:43 This 34 yrs old Female presents to ER via Ambulatory with complaints of Covid Test. jj9 10:58 34-year-old female comes emergency department concerned with the possibility of COVID. jj9 The patient has had cough, congestion, runny nose and a roommate that tested positive for COVID. She denies any chronic medical problems she smokes occasionally. Denies any other problems.. EMERGENCY DEPT TECH: 10:54 LMP 04/22/2024, unknown iw Historical: - Allergies: 10:54 Demerol; iw - PMHx: 10:54 adhd; PCOS; Anxiety; iw - PSHx: 10:54 ankle surgery; section; iw - Immunization history:: Adult Immunizations up to date. - Infectious Disease History:: Denies. - Social history:: Smoking status: Patient reports the use of cigarette tobacco products, smokes one-half pack cigarettes per day. ROS: 10:59 Constitutional: Negative for fever, chills, and weight loss, Eyes: Negative for injury, jj9 pain, redness, and discharge, ENT: Runny nose, cough, congestion Neck: Negative for injury, pain, and swelling, Cardiovascular: Negative for chest pain, palpitations, and edema, Respiratory: Cough Abdomen/GI: Negative for abdominal pain, nausea, vomiting, diarrhea, and constipation, Back: Negative for injury and pain, MS/Extremity: Negative for injury and deformity, Skin: Negative for injury, rash, and discoloration, Neuro: Negative for headache, weakness, numbness, tingling, and seizure, Psych: Negative for depression, anxiety, suicide ideation, homicidal ideation, and hallucinations, Allergy/Immunology: Negative for hives, rash, and allergies, Endocrine: Negative for neck swelling, polydipsia, polyuria, polyphagia, and marked weight changes, Hematologic/Lymphatic: Negative for swollen nodes, abnormal bleeding, and unusual bruising, Exam: 10:59 Constitutional: This is a well developed, well nourished patient who is awake, alert, jj9 and in no acute distress. Head/Face: Normocephalic, atraumatic. Eyes: Pupils equal round and reactive to light, extra-ocular motions intact. Lids and lashes normal. Conjunctiva and sclera are non-icteric and not injected. Cornea within normal limits. Periorbital areas with no swelling, redness, or edema. ENT: Nasal congestion, runny nose, Neck: Trachea midline, no thyromegaly or masses palpated, and no cervical lymphadenopathy. Supple, full range of motion without nuchal rigidity, or vertebral point tenderness. No Meningismus. Chest/axilla: Normal chest wall appearance and motion. Nontender with no deformity. No lesions are appreciated. Cardiovascular: Regular rate and rhythm with a normal S1 and S2. No gallops, murmurs, or rubs. Normal PMI, no JVD. No pulse deficits. Respiratory: Lungs have equal breath sounds bilaterally, clear to auscultation and percussion. No rales, rhonchi or wheezes noted. No increased work of breathing, no retractions or nasal flaring. Abdomen/GI: Soft, non-tender, with normal bowel sounds. No distension or tympany. No guarding or rebound. No evidence of tenderness throughout. Back: No spinal tenderness. No costovertebral tenderness. Full range of motion. Skin: Warm, dry with normal turgor. Normal color with no rashes, no lesions, and no evidence of cellulitis. MS/ Extremity: Pulses equal, no cyanosis. Neurovascular intact. Full, normal range of motion. Neuro: Awake and alert, GCS 15, oriented to person, place, time, and situation. Cranial nerves II-XII grossly intact. Motor strength 5/5 in all extremities. Sensory grossly intact. Cerebellar exam normal. Normal gait. Psych: Awake, alert, with orientation to person, place and time. Behavior, mood, and affect are within normal limits. Vital Signs: 10:53 BP 155 / 89; Pulse 89; Resp 18; Temp 97.7; Pulse Ox 100% on R/A; iw MDM: 10:51 Medical Screening Exam initiated j 12:04 Differential Diagnosis: Bronchitis Upper Respiratory Infection Viral Syndrome. 12:08 ED course: 34-year-old female comes emergency department complaint of URI symptoms for jj9 the last couple days. Patient has been in contact with positive COVID roommate. She denies any other problems other than upper respiratory symptoms. We tested for flu COVID and they are negative. This is likely another viral upper respiratory infection. Advised to continue [id number] medications, follow with PCP and return to the ED if worsening of symptoms patient understands and agrees with the plan.. 16:43 Data reviewed: vital signs, nurses notes. j9 04/29 11:00 Order name: COVID-19 Ag + Flu A+B Ag; Complete Time: 12:02 jj9 Administered Medications: No medications were administered Disposition Summary: 04/29/24 12:05 Discharge Ordered Notes: Location: Home jj9 Problem: new jj9 Symptoms: have improved jj9 Condition: Stable jj9 Diagnosis - Acute upper respiratory infection, unspecified jj9 Followup: jj9 - With: Private Physician - When: As needed - Reason: Discharge Instructions: - Discharge Summary Sheet jj9 - Upper Respiratory Infection, Adult jj9 Forms: - Work release form iw - Medication Reconciliation Form j9 - Antibiotic Education jj9 - Prescription Opioid Use jj9 - Patient Portal Instructions jj9 - Leadership Thank You Letter jj9 Signatures: Dispatcher [employer] Carole Johnson, PATRICIO RN iw Franklin Fernandez MD MD jj9
[2024-04-29 14:13] VITALS: BP 155/89; TEMP 97.7; O2SAT 100
== END 2024-04-29 12:22 | disposition home or self-care (01) ==
LOC: ER 10:10
DX: J06.9 Acute upper respiratory infection, unspecified (principal); Z11.52 Encounter for screening for COVID-19
CPT/HCPCS: 36415; 87428